=== PATIENT | male | born 1970 | race Caucasian/White ===

== ENCOUNTER 2017-07-05 13:42 | Emergency (ER) | payer MEDICAID, SELFPAY ==
[2017-07-05] VITALS (7 sets, daily range): BP systolic 118–136; BP diastolic 72–80; PULSE 70–83; RESP 14–18; TEMP 37.2; O2SAT 95–99; BMI 21.8
--- NOTE | 2017-07-05 14:20 | ED.VISSUMM ---
- ER Visit Summary Date of Service: 07/05/17 Chief Complaint: Manic episode History of Present Illness: The patient is a 47 M sent by the counseling center for evaluation. Patient was being seen by his counselor for what he states was a routine appointment. He states he was misdiagnosed as having a manic episode. He became agitated and the police were called. He was brought to the ED for further evaluation. He is easily distracted with pressured speech. He denies suicidal or homicidal ideation. He states that he has been taking his medications although report was that he was noncompliant. He states he has not been sleeping well. Physical Examination: Vitals are stable. Patient is afebrile. Alert no acute distress. HEENT exam is unremarkable. Neck is supple. Lungs are clear and equal bilaterally. Heart is regular rate and rhythm. Abdomen is soft nontender nondistended. Extremities are unremarkable. Skin is warm and dry. No focal neurologic deficit. Pressured speech, denies suicidal ideation Remainder of exam is unremarkable. Emergency Department Course and Treatment: CBC, chemistries unremarkable. Alcohol negative. Tox is pending. Discussed with the counseling center for evaluation. Disposition: Per counseling center Impression: Manic episode This note was generated with [employer] dictation software. It may contain incorrect words, spelling, and punctuation that were not noted in review of the chart prior to signing ED Disposition - Plan for ED Patient: Chief Complaint: Suicidal Referrals: Hay Garcia MD [Primary Care Provider] -
[2017-07-05 14:35] LABS: Basophil# 0.03 X10^3/uL; Basophil% 0.3 % (0-1); Eosinophil# 0.03 X10^3/uL; Eosinophils% 0.3 % (0-5); Hemoglobin 14.2 g/dl (13.0-16.5); Lymphocyte % 12.8 % (19-41); Mean Corp Hgb Conc 33.8 g/gl (32-36); Mean Corpuscular Volume 88.6 fL (80-94); Mean Platelet Vol. 9.6 fl (6.2-12.0); Monocyte# 0.74 X10^3/uL; Monocyte% 7.3 % (0-10); Neutrophil # 8.01 X10^3/uL (2.7-7.7); Neutrophil % 79.1 % (47-70); Platelet Count 273 K/mm3 (150-450); RBC Distribution Width CV 13.5 % (11.6-14.6); RBC Distribution Width SD 43.8 fl (35.1-43.9); Red Blood Count 4.74 M/mm3 (4.6-6.2); White Blood Count 10.1 K/mm3 (4.4-11.0)
[2017-07-05 14:36] LABS: POSITIVE COUNT NO; POSITIVE DIFFERENTIAL NO; POSITIVE MORPHOLOGY NO
[2017-07-05 14:55] LABS: Anion Gap 11 (5-15); BUN 10 mg/dL (7-18); BUN/Creat Ratio 13.2 RATIO (10-20); Calcium,Total 8.9 mg/dL (8.5-10.1); Chloride 103 mmol/L (98-107); Creatinine, Serum 0.76 mg/dL (0.70-1.30); EST Glomerular Filtration Rate 117 mL/min (>60); Est Glom Filt Rate - Afr Amer 142 mL/min (>60); Estimated Creatinine Clearance 115.32 ml/min; Glucose 142 mg/dL (74-106); Potassium 3.8 mmol/L (3.5-5.1); Sodium Level 139 mmol/L (136-145)
[2017-07-05 16:42] LABS: Amphetamine Urine VISTA NEGATIVE (<1000 ng/mL); Barbiturate Urine VISTA NEGATIVE (< 200 ng/mL); Benzodiazepine Urine VISTA NEGATIVE (< 200 ng/mL); Cocaine Urine VISTA NEGATIVE (< 300 ng/mL); Ecstacy Urine VISTA NEGATIVE (< 500 ng/mL); Methadone Urine VISTA NEGATIVE (< 300 ng/mL); PCP Urine VISTA NEGATIVE (< 25 ng/mL); THC Urine VISTA POSITIVE (< 50 ng/mL); Vista UDS pH Range 6
[2017-07-05] MEDS: Ziprasidone IM 20 MG/ML VIAL 10 MG IM (17:46)
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
[2017-07-05] MEDS: Acetaminophen 500 MG Tablet 1000 MG PO (21:10)
[2017-07-05] MEDS: Ziprasidone IM 20 MG/ML VIAL IM (21:11)
--- NOTE | 2017-07-05 23:12 | NURSING ---
CALLED [facility] NO AVAILABILITY TILL MORNING ([phone]) [facility] UNAVAILABLE FOR A FEW HOURS ([phone]) [facility] UNAVAILABLE FOR 2 HOURS IF NO OTHER CALLS COME IN ([phone])
[2017-07-06] VITALS (9 sets, daily range): BP systolic 118; BP diastolic 70; PULSE 70; RESP 14–20; TEMP 37.1; O2SAT 95
--- NOTE | 2017-07-06 00:11 | ED.RN ---
ATTEMPTED TO CALL REPORT TO [facility]. NO ANSWER.
--- NOTE | 2017-07-06 00:16 | ED.RN ---
NOTIFIED PT O TRANSFER, PT STATES THIS RN IS WORTHLESS, AND TO GET OUT OF HIS FUCKING ROOM
[2017-07-06] MEDS: LORazepam 2 MG/ML Syringe 1 MG IM (01:10)
[2017-07-06] MEDS: DiphenhydrAMINE 50 MG/ML Syringe IM (01:10)
[2017-07-06] MEDS: Haloperidol Lactate 5 MG/ML Vial IM (01:10)
--- NOTE | 2017-07-06 01:10 | ED.RN ---
PT REFUSED THIS RN TO GET VITAL SIGNS. RESPIRATIONS 18
--- NOTE | 2017-07-06 04:11 | NURSING ---
TOLD BY [facility] CALL BACK AT [phone] TO CHECK ON AVAILABILITY. WILL MAKE SURE TO TELL SUDHIR TRANSPORT IS STILL NEEDED AT SHIFT CHANGE
--- NOTE | 2017-07-06 08:07 | ED.RN ---
PT YELLING FOR HIS NURSE. PT DISRESPECTFUL CALL STAFF NAMES. PT REFUSED VITALS.
[2017-07-06] MEDS: Ziprasidone IM 20 MG/ML VIAL 10 MG IM (08:53)
--- NOTE | 2017-07-06 08:53 | ED.RN ---
PT IS CUSSING AND REFUSING TO LEAVE. PT WAS MEDICATED WITH [facility]. PT CONTINUES TO YELL AND BE UNCOOPERATIVE. TRANSPORTING [facility] IS STANDING BY.
== END 2017-07-06 09:08 ==
PROVIDERS: Emergency Provider Emergency Medicine; Family Provider Family Medicine; PCP Family Medicine
DX: F30.9 Manic episode, unspecified (principal); Z91.14 Patient's other noncompliance with medication regimen; Z87.820 Personal history of traumatic brain injury; Z72.0 Tobacco use
CPT/HCPCS: 80048; 80307; 80320; 85025; 96372; 99284; G0480; J3486

== ENCOUNTER → 2018-03-14 15:18 | Outpatient (CLI) | payer MEDICAID, SELFPAY ==
[2017-07-05 13:43] VITALS: BMI 21.8
[2018-03-14 16:38] LABS: Amphetamine Urine VISTA NEGATIVE (<1000 ng/mL); Barbiturate Urine VISTA NEGATIVE (< 200 ng/mL); Benzodiazepine Urine VISTA POSITIVE (< 200 ng/mL); Cocaine Urine VISTA NEGATIVE (< 300 ng/mL); Ecstacy Urine VISTA NEGATIVE (< 500 ng/mL); Methadone Urine VISTA NEGATIVE (< 300 ng/mL); PCP Urine VISTA NEGATIVE (< 25 ng/mL); THC Urine VISTA POSITIVE (< 50 ng/mL); Vista UDS pH Range 5
[2018-03-14 16:57] LABS: Erythrocyte Sedimentation Rate 10 mm/hr (0-15)
[2018-03-14 17:01] LABS: Vitamin B12 720 pg/mL (211-911)
[2018-03-14 17:07] LABS: ALB/GLOB Ratio 1.1 RATIO (0.9-2.4); AST(SGOT) 8 U/L (15-37); Alanine Aminotransfer ALT/SGPT 19 U/L (16-61); Albumin, Serum 3.9 g/dL (3.2-5.0); Alkaline Phosphatase 62 U/L (45-117); Anion Gap 8 (5-15); BUN 6 mg/dL (7-18); BUN/Creat Ratio 9.1 RATIO (10-20); Calcium,Total 9.2 mg/dL (8.5-10.1); Chloride 107 mmol/L (98-107); Creatinine, Serum 0.66 mg/dL (0.70-1.30); EST Glomerular Filtration Rate 137 mL/min (>60); Est Glom Filt Rate - Afr Amer 166 mL/min (>60); Globulin 3.4 g/dL (2.2-4.2); Glucose 98 mg/dL (74-106); Potassium 3.6 mmol/L (3.5-5.1); Protein, Total 7.3 g/dL (6.4-8.2); Sodium Level 140 mmol/L (136-145); Thyroid Stim Hormone (TSH) 1.31 uIU/mL (0.358-3.74)
== END ==
PROVIDERS: Family Provider Family Medicine; PCP Family Medicine; Referring Provider Psychiatry & Neurology Neurology; Visit Provider Psychiatry & Neurology Neurology
DX: S06.9X0A Unspecified intracranial injury without loss of consciousness, initial encounter (principal); G93.40 Encephalopathy, unspecified; X58.XXXA Exposure to other specified factors, initial encounter; Y93.9 Activity, unspecified; Y92.9 Unspecified place or not applicable; Y99.9 Unspecified external cause status; F31.9 Bipolar disorder, unspecified; Z79.899 Other long term (current) drug therapy
CPT/HCPCS: 36415; 80053; 80307; 82175; 82570; 82607; 83655; 83825; 84443; 85652

== ENCOUNTER 2025-01-17 16:56 | Emergency (ER) | payer MEDICAID, SELFPAY ==
[2025-01-17 16:57] VITALS: BP 137/83; PULSE 89; RESP 18; TEMP 37.1; O2SAT 96; BMI 23.2
--- NOTE | 2025-01-17 17:41 | US_ITS ---
PROCEDURE: US TESTICULAR WITH ARTERIAL FLOW 01/17/2025 REASON FOR EXAM: TESTICLE SWELLING AND PAIN TECHNIQUE: Procedure Code: USTES Modality: US Procedure: TESTICULAR WITH ARTERIAL FLOW COMPARISON: None. FINDINGS: The testes and epididymi appear normal in size with homogeneous parenchymal echotexture. No mass lesion. Right testicle measures 3.8 x 2.4 x 1.8 cm. Left testicle measures 3.1 x 2.2 x 1.5 cm. Small subcentimeter left epididymal head cysts noted. Normal symmetric blood flow is demonstrated bilaterally on color Doppler. No evidence for torsion or epididymo-orchitis. No significant hydrocele or varicocele is seen on either side. US/Testicular with Arterial Flow IMPRESSION: Unremarkable scrotal ultrasound. No evidence for torsion or infection. Reading Location: [id number]
[2025-01-17 18:19] LABS: Mucous, Urine 0 SEEN /hpf (<or=2+)
[2025-01-17 18:19] LABS: Hematocrit 47.9 % (40-54); Hemoglobin 16.5 g/dL (13.0-16.5); Immature Granulocytes Count 0.020 X10^3/uL (0.0-0.0); Mean Corp Hgb Conc 34.4 g/dL (32-36); Mean Corpuscular Volume 89.0 fL (80-94); Mean Platelet Vol. 10.3 fl (6.2-12.0); NRBC Flagged by Analyzer 0 % (0-5); Platelet Count 247 K/mm3 (150-450); RBC Distribution Width CV 13.3 % (11.6-14.6); RBC Distribution Width SD 43.4 fl (35.1-43.9); Red Blood Count 5.38 M/mm3 (4.6-6.2); White Blood Count 8.5 K/mm3 (4.4-11.0)
--- OUTSIDE RECORDS SUMMARY | 2025-01-17 18:27 | XMS RPT_ITS | CCD ---
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 help improve these levels and reduce your reflux symptoms. We discussed your headaches: - Since you were unable to complete the MRI, I recommend a CT scan of your head, which is less enclosed and quieter than an MRI. This will help us evaluate your headaches further. The CT scan can be done at [place]. - If your headaches persist, I may refer you to a specialist for further evaluation. We discussed your anxiety: - Anxiety may be contributing to your symptoms, including reflux and headaches. Please continue working with your psychiatrist to address this. If your anxiety worsens, let me know. We discussed your elevated cholesterol: - Continue taking atorvastatin as prescribed to manage your cholesterol. - Fasting labs are scheduled for the end of this month to recheck your cholesterol levels and monitor your blood counts. Please fast for 12 hours before this test. We discussed your heart health: - An echocardiogram (ultrasound of the heart) is needed to evaluate your heart. I will ask the director of front office to help schedule this test at [place]. Follow-up plan: - Complete the fasting labs, CT scan, and echocardiogram as discussed. - Continue working with your psychiatrist for anxiety management. - Follow up with me after your December 13 appointment or sooner if your symptoms worsen. - I will see you again in approximately 12 weeks to review your progress and test results. Please let me know if you have any questions or concerns about your care plan. Luis Mcfadden MD 10/27/2024 12:28 PM Signed The patient is a 54-year-old male with GERD and hyperlipidemia, presenting for follow-up on reflux, lipid management, and evaluation of persistent headaches. HPI GERD: - Persistent reflux symptoms. - Recent EGD by Dr. Markham revealed a hiatal hernia and erythematous mucosa in the antrum of the stomach. - Pathology report showed reactive squamous mucosa and gastrocardiac type mucosa, negative for intestinal metaplasia. - Currently taking Protonix. - Fadi reports significant anxiety related to reflux symptoms. Polycythemia: - Previous hemoglobin level of 19 g/dL. - Recent labs showed elevated carboxyhemoglobin and mildly elevated WBC count. - Fadi is a smoker, currently smoking 5-6 cigarettes per day, reduced from 10-15 cigarettes per day. Anxiety: - History of anxiety, currently under psychiatric care. - Next psychiatry appointment scheduled for December 13. - Fadi reports increased anxiety related to reflux symptoms and headaches. Headaches: - Persistent and severe headaches. - Previous facial bone X-ray was negative. - MRI was ordered but canceled by patient. refuses to do one. MEDICATIONS: Current Outpatient Medications Medication Sig atorvastatin (LIPITOR) 20 mg tablet Take 1 tablet by mouth once daily. Cholecalciferol, Vitamin D3, 125 mcg (5,000 unit) cap Take 1 capsule by mouth once daily. pantoprazole DR (PROTONIX) 40 mg tablet Take 1 tablet by mouth once daily. doxepin capsule 50 mg Take 50 mg by mouth daily at bedtime. traZODone (DESYREL) 100 mg tablet Take 100 mg by mouth daily at bedtime. VENLAFAXINE ER 150 MG TABLET,EXTENDED RELEASE 24 HR Take 150 mg by mouth once daily. ALPRAZolam (XANAX) 0.5 mg tablet Take 0.5 mg by mouth three times daily. famotidine (PEPCID) 20 mg tablet Take 1 tablet by mouth daily at bedtime. iv contrast (will be provided with radiology test) CT Brain WO/W - No IV access, insert saline lock prior to the sedation, infusion, injection for imaging exam. Discontinue saline lock post exam. If Pt. has a central line or IVAD, may access for administration according to line specific nursing protocol. Once exam is complete flush line and de-access according to line specific nursing protocol in the CT contrast administration guidelines (more content not included)... Normal [facility] ANES POSTPROC EVALon 025 ANES POSTPROC EVAL HNO ID: [id number] Author: FARIHA ESPAÑA MD Service: Anesthesiology Author Type: Anesthesiologist Type: Anesthesia Postprocedure Evaluation Filed: 10/17/2024 12:42 Note Text: POST ANESTHESIA EVALUATION NOTE : 1970 Procedure Summary Date: 10/17/24 Room / Location: [facility] Endoscopy Anesthesia Start: 1156 Anesthesia Stop: 1211 Procedure: EGD DIAGNOSTIC Diagnosis: Gastroesophageal reflux disease, unspecified whether esophagitis present (Heartburn) Scheduled Providers: Chapis Markham MD; Reynaldo Hayes APRN.SHAPING MACHINE OPERATOR; Fariha España MD Responsible Provider: Fariha Esapña MD Anesthesia Type: MAC ASA Status: 3 Anesthesia Type: MAC Last Vitals Vitals Value Taken Time BP 145/88 10/17/24 12:40 Temp 37 10/17/24 12:42 Pulse 72 10/17/24 12:40 Resp 18 10/17/24 12:40 SpO2 99 % 10/17/24 12:40 Post Anesthesia Patient Status Patient Evaluation: bedside. Anticipated Disposition: phase 2 then home. Neurological Status: aware and responsive. Airway Control: returned to baseline unsupported. Cardiovascular Status: stable. Pain Management: clinically adequate Postoperative Hydration: acceptable. Intraoperative Events: no significant anesthesia events Recommendation: continue current plan of care. Anesthesia Observations No Documentation SIGNATURE: Fariha España MD PATIENT NAME: Fadi Alexandre DATE: October 17, 2024 TIME: 12:42 PM CSN: [id number] Normal [facility] ANES PRE-OPon 10-17-2024 ANES PRE-OP HNO ID: [id number] Author: FARIHA ESPAÑA MD Service: Anesthesiology Author Type: Anesthesiologist Type: Anesthesia Preprocedure Evaluation Filed: 10/17/2024 11:20 Note Text: ANESTHESIOLOGY DAY OF SURGERY NOTE : 1970 Procedure Information Date/Time: 10/17/24 1300 Scheduled providers: Chapis Markham MD; Reynaldo Hayes APRN.SHAPING MACHINE OPERATOR; Fariha España MD Procedure: EGD DIAGNOSTIC Location: [facility] Endoscopy Estimated body mass index is 25.25 kg/m? as calculated from the following: Height as of this encounter: 175.3 cm (5' 9). Weight as of this encounter: 77.6 kg (171 lb). Most recent hematocrit and potassium results: Hematocrit 51.8 10/02/2024 Hematocrit (POCT) 38.2 09/10/2019 Potassium 4.1 05/21/2024 Potassium (POCT) 3.5 09/10/2019 Relevant Problems GI (+) GERD (gastroesophageal reflux disease) I - PHYSICAL EVALUATION AIRWAY Patient intubated: No. Tracheostomy tube not present Mallampati: II. TM distance: >3 FB. Neck ROM: full ROM without neurological symptoms. Mouth opening: >3 FB. Short neck: no. Thick neck: no Jolly present: no Microretrognathia/Micronag thia/Recessed Chin: No DENTAL Additional comments: Many Upper and Lower teeth missing and loose with overall poor dentition.. Additional exam findings: yes. CARDIOVASCULAR Rhythm: regular Rate: normal PULMONARY Breath sounds clear to auscultation. Additional comments: Pt has an old healed Tracheostomy Scar. No hoarseness of voice/stridor.. II - ANESTHESIA PLAN ASA Score: 3 Anesthetic Plan: MAC The patient is not a current smoker. Beta Valerie Administration of chronic beta valerie medication not planned. Monitoring Plan Monitoring plan: standard ASA. Post Procedure Analgesic Plan Postoperative analgesic plan: other. Informed Consent Anesthetic risks, benefits, alternatives, personnel and consent discussed: yes. Patient / Responsible Green Party agrees to proceed: yes Patient / Surrogate agrees to blood products: blood products not planned DNR status not reviewed with patient and/or family prior to surgery. Significant changes in the patient condition since the History and Physical, not otherwise documented in primary service progress note: no. Potential Anesthesia issues that may suggest increased risk of complications or contraindication to planned procedure: none. Vitals Value Taken Time BP 133/89 10/17/24 11:09 Pulse 88 10/17/24 11:09 Resp 17 10/17/24 11:09 Temp 36.5 ?C (97.7 ?F) 10/17/24 11:09 SpO2 93 % 10/17/24 11:09 Outpatient Medications as of 10/17/2024 Medication Sig atorvastatin (LIPITOR) 20 mg tablet Take 1 tablet by mouth once daily. Cholecalciferol, Vitamin D3, 125 mcg (5,000 unit) cap Take 1 capsule by mouth once daily. pantoprazole DR (PROTONIX) 40 mg tablet Take 1 tablet by mouth once daily. doxepin capsule 50 mg Take 50 mg by mouth daily at bedtime. traZODone (DESYREL) 100 mg tablet Take 100 mg by mouth daily at bedtime. VENLAFAXINE ER 150 MG TABLET,EXTENDED RELEASE 24 HR Take 150 mg by mouth once daily. ALPRAZolam (XANAX) 0.5 mg tablet Take 0.5 mg by mouth three times daily. Facility-Administered Medications as of 10/17/2024 Medication Dose Route Frequency lidocaine (PF) 10 mg/mL (1 %) 1-2 mg injection (XYLOCAINE) 0.1-0.2 mL INTRADERMAL PRN lactated ringers iv infusion 30 mL/hr INTRAVENOUS CONTINUOUS I have interviewed and examined the patient. I have reviewed the medical record and/or the pre-anesthesia evaluation, pertinent labs, and test results. This contains updated information obtained within 48 hours of Surgery/Procedure. SIGNATURE: Fariha España MD PATIENT NAME: Fadi Alexandre DATE: October 17, 2024 TIME: 11:13 AM CSN: [id number] Normal [facility] EGD Study observation Kath craig 10-17-2024 [facility] Gastrointestinal Endoscopy Patient Name: Fadi Alexandre Procedure Date: 10/17/2024 11:46 AM Date of : 1970 Admit Type: Outpatient Age: 54 Room: [facility] Gender: Male Note Status: Finalized Attending MD: Chapis Markham MD, [id number] Procedure: Upper GI endoscopy Indications: Heartburn Providers: Chapis Markham MD Patient Profile: Refer to note in patient chart for documentation of history and physical. Referring Physician: Rema Simon (Referring MD) Medicines: See the Anesthesia note for documentation of the administered medications Complications: No immediate complications. Requesting Provider: Procedure: Pre-Anesthesia Assessment: - Monitored anesthesia care under the supervision of a SHAPING MACHINE OPERATOR was determined to be medically necessary for this procedure based on review of the patient's medical history, medications, and prior anesthesia history. After obtaining informed consent, the endoscope was passed under direct vision. Throughout the procedure, the patient's blood pressure, pulse, and oxygen saturations were monitored continuously. The Endoscope was introduced through the mouth, and advanced to the second part of duodenum. The upper GI endoscopy was accomplished without difficulty. The patient tolerated the procedure well. Moderate Sedation: MAC anesthesia was administered by the anesthesia team. Total Procedure Duration: 0 hours 5 minutes 57 seconds Findings: The duodenal bulb, first portion of the duodenum and second portion of the duodenum were normal. Radially Striped mildly erythematous mucosa without bleeding was found in the gastric antrum. Biopsies were taken with a cold forceps for Helicobacter pylori testing and at erythematous site. Verification of patient identification for the specimen was done by the nurse. Estimated blood loss was minimal. A small hiatal hernia was present. Biopsies were taken with a cold forceps for histology at GE junction. Verification of patient identification for the specimen was done by the nurse. Estimated blood loss was minimal. Impression: - Normal duodenal bulb, first portion of the duodenum and second portion of the duodenum. - Erythematous mucosa in the antrum. Biopsied. - Small hiatal hernia. Biopsied at GE junction. Recommendation: - Discharge patient to home (ambulatory). - Resume previous diet. - Continue present medications. - Await pathology results. - - Follow up with Katharine Simon NP, , may be via televisit for discussion of pathology results and determination of timing of future endoscopies Procedure Code(s): --- Professional --- 25146, Esophagogastroduodenoscopy , flexible, transoral; with biopsy, single or multiple Diagnosis Code(s): --- Professional --- R12, Heartburn K44.9, Diaphragmatic hernia without obstruction or gangrene K31.89, Other diseases of stomach and duodenum CPT copyright 2020 [employer]. All rights reserved. The codes documented in this report are preliminary and upon timber mill worker review may be revised to meet current compliance requirements. Attending Participation: I personally performed the entire procedure. Scope In: 12:01:06 PM Scope Out: 12:07:03 PM MD Chapis Weber MD 10/17/2024 12:11:40 PM This report has been signed electronically by Chapis Markham MD Number of Addenda: 0 Note Initiated On: 10/17/2024 11:46 AM Estimated Blood Loss: Estimated blood loss was minimal. PROVATION [facility] Radiology Study observation (narrative) [facility] HISTORY PHYSICALon HISTORY PHYSICAL HNO ID: [id number] Author: CHAPIS MARKHAM MD Service: General Surgery Author Type: Physician Type: H&P Filed: 10/17/2024 11:47 Note Text: HISTORY AND PHYSICAL Fadi Alexandre : 1970 REFERRING PHYSICIAN: Luis Cervantes [facility] [id number] CHIEF COMPLAINT: Patient presents with: Consult HPI: Fadi is a 54 year old male referred for endoscopy. Fadi notes heartburn. -admits to a large amount of coffee consumption -PCP started on protonix and it is not helping Fadi denies dysphagia. Fadi denies a history of ulcers/ peptic ulcer disease. Fadi's medical hx is significant for TBI(2011)- had tracheostomy AND was in hospital for 4 mos, HLD, 1ppd smoker w/ c/o SOB. Dr Mcfadden recently ordered PFTs AND an ECHO. will wait for these results prior to scheduling Fadi expressed frustration stating I thought I was here for my breathing. He mentioned multiple times he does not want to do the scopes. Fadi has not undergone prior endoscopy. He refused scheduling for colonoscopy and only scheduled for EGD CURRENT MEDICATIONS Current Outpatient Medications Medication Sig Cholecalciferol, Vitamin D3, 125 mcg (5,000 unit) cap Take 1 capsule by mouth once daily. pantoprazole DR (PROTONIX) 40 mg tablet Take 1 tablet by mouth once daily. doxepin capsule 50 mg Take 50 mg by mouth daily at bedtime. traZODone (DESYREL) 100 mg tablet Take 100 mg by mouth daily at bedtime. VENLAFAXINE ER 150 MG TABLET,EXTENDED RELEASE 24 HR Take 150 mg by mouth once daily. ALPRAZolam (XANAX) 0.5 mg tablet Take 0.5 mg by mouth three times daily. No current facility-administered medications for this visit. ALLERGIES: Zyprexa [Olanzapine] PAST MEDICAL HISTORY PAST MEDICAL HISTORY Diagnosis Date Chronic pain dismissed from pain management, due to inconsistant drug screens Fall Intracranial bleed (HCC) after fall Marijuana use positive drug screen by Dr. Martinez Organic mood disorder since fall, seeing psychiatry Trauma multiple fractures PAST SURGICAL HISTORY PAST SURGICAL HISTORY Procedure Laterality Date FOOT SURGERY HX Left 2016 removal of wart PAST SURGICAL HISTORY OF 2011 trach, peg, multi-trauma/fall, hospitalized [place]-100 days FAMILY HISTORY FAMILY HISTORY Problem Relation Age of Onset Osteoporosis Mother other (CHF) Mother Hypertension Mother Arthritis Mother other (Thyroid disease) Mother Diabetes Father Heart Father No Known Problems Sister other (suicide) Brother Hypertension Brother other (Heart condition) Maternal Grandmother other (Heart condition) Maternal Grandfather No Known Problems Paternal Grandmother No Known Problems Paternal Grandfather SOCIAL HISTORY Social History Tobacco Use Smoking status: Every Day Current packs/day: 0.75 Average packs/day: 0.8 packs/day for 34.7 years (26.0 ttl pk-yrs) Types: Cigarettes Start date: 09/10/1989 Smokeless tobacco: Former Tobacco comments: CHEW TOBACCO 1 X EVERY 2 MONTHS 05/08/24: quit Vaping Use Vaping status: Never Used Substance Use Topics Alcohol use: Not Currently Drug use: Yes Frequency: 7.0 times per week Types: Marijuana Comment: [address] last used no h/o rehab or detox REVIEW OF SYMPTOMS: Denies chest pain Denies shortness of breath PHYSICAL EXAMINATION: General: The patient is 54 year old, male well nourished, well hydrated in no acute distress. The patient is oriented to time, place, and person. VITALS: Blood pressure 112/78, pulse 96, temperature 36.7 ?C (98 ?F), temperature source Temporal, resp. rate 14, height 176.5 cm (5' 9.5), weight 76.2 kg (168 lb), SpO2 96%. Body mass index is 24.45 kg/m?. HEENT: Normal cephalic, ataumatic, pupils are equally round, sclera are anicteric, mucous membranes are moist, oropharynx is clear. Neck has no masses, asymmetry or lymphadenopathy. Respiratory: Clear to auscultation and percussion. Normal respiratory excursion and pattern. Cardiac: Examination is regular rate and rhythm. Normal S1/S2 Abdominal exam: Soft, nontender, with no palpable masses. No hepatosplenomegaly. No palpable hernias. Extremities: + clubbing, cyanosis or edema. No adenopathy. Assessment IMPRESSION: GERD Discussion/Plan/Recommenda tions: I have discussed the above with the patient. I have offered EGD, possible biopsies I have explained the procedure to the patient. I have counseled the patient as to the risks of the procedure, including but not limited to: infection, bleeding, injury to any intrabdominal organs such as liver/spleen, perforation of the GI tract, inability to complete the procedure, complications of anesthesia, etc. - the patient understands. Patient is waiting in the preoperative area and very frustrated with being in the hospital The patient wishes to proceed. I have answered all questions to the patient?s s (more content not included)... [facility] Pathology biopsy report Vignesh (Tiss)on 10-17-2024 AP DISCLAIMER [facility] Comment on above: Order Comment: Specgabriel velasquez Type: TISSUE SPECIMEN Ordering Facility: [facility] Address: [address] [place] [address] Result Comment: Alden Kincaid Test (LDT) Disclaimer: Performance characteristics of immunohistochemical, immunofluorescent, and chromogenic in-situ hybridization tests have been determined by the performing laboratory within the [facility] Department of Pathology and Laboratory Medicine ([facility]3], [facility], [facility], [facility], [facility], [facility], or [facility]) in a manner consistent with CLIA requirements. One or more of these tests may not have been cleared or approved by the FDA. The [facility] Department of Pathology and Laboratory Medicine is regulated under CLIA as qualified to perform high-complexity testing. These tests are used for clinical purposes. These should not be regarded as investigational or for research. Positive and negative controls stain appropriately. Performed By: #### 6 6121-5 #### [facility] CLIA [id number] [address] [place] [address] [place] CASE REPORT Normal [facility] Comment on above: Order Comment: Edy velasquez Type: TISSUE SPECIMEN Ordering Facility: [facility] Address: [address] [place] [address] Result Comment: [facility] Pathology Report Case: [id number] Authorizing Provider: Chapis Markham MD Collected: 10/17/2024 12:02 PM Ordering Location: [facility] Endoscopy Received: 10/17/2024 02:11 PM Pathologist: Daniella Salcido MD, PhD Specimens: A) - Stomach, Antrum, Biopsy B) - Stomach, Biopsy, body of stomach C) - Esophagogastric Junction, Biopsy Performed By: #### 6 6121-5 #### [facility] CLIA [id number] [address] [place] [address] [place] FINAL DIAGNOSIS Normal [facility] Comment on above: Order Comment: Edy velasquez Type: TISSUE SPECIMEN Ordering Facility: [facility] Address: [address] [place] [address] Result Comment: Kerry holloway, antrum, biopsy: - Gastric antral mucosa with no significant diagnostic abnormality. B. Stomach, body, biopsy: - Detached fragments of foveolar epithelium, no significant diagnostic abnormality. C. Esophagogastric junction, biopsy: - Reactive squamous mucosa and gastric cardia-type mucosa, negative for intestinal metaplasia. at 1153 EDT Performed By: #### 6 6121-5 #### [facility] CLIA [id number] [address] [place] [address] OF [facility] FINAL PERFORMING LAB Normal [facility] Comment on above: Order Comment: Speci men Type: TISSUE SPECIMEN Ordering Facility: [facility] Address: [address] [place] [address] Result Comment: Diag nostic interpretation performed at: [facility], [address] [place] [address] CLIA# [id number] Stone Spreader Operator: Antonino Cavazos MD Performed By: #### 6 6121-5 #### [facility] CLIA [id number] [address] [place] [address] GROSS DESCRIPTION Normal [facility] Comment on above: Order Comment: Speci men Type: TISSUE SPECIMEN Ordering Facility: [facility] Address: [address] [place] [address] Result Comment: A. S tomach, Antrum, Biopsy Received in formalin is one piece of jackman, soft tissue measuring 0.3 x 0.2 x 0.1 cm. Totally submitted in one cassette. B. Stomach, Biopsy Received in formalin is one piece of jackman, soft tissue measuring 0.2 x 0.1 x 0.1 cm. Totally submitted in one cassette. C. Esophagogastric Junction, Biopsy Received in formalin are two pieces of jackman-white, soft tissue aggregating to 0.6 x 0.3 x 0.2 cm. Totally submitted in one cassette. Gross examination performed at [facility], [address] [place] [address]. [place] [address] JT 10/17/2024 5:54 PM Performed By: #### 6 6121-5 #### [facility] CLIA [id number] [place] [place] [address] [place] [facility] Upper GI endoscopyon 10-17-2 025 Upper GI endoscopy [facility] Gastrointestinal Endoscopy Patient Name: Fadi Alexandre Procedure Date: 10/17/2024 11:46 AM Date of : 1970 Admit Type: Outpatient Age: 54 Room: [facility] Gender: Male Note Status: Finalized Attending MD: Chapis Markham MD, [id number] Procedure: Upper GI endoscopy Indications: Heartburn Providers: Chapis Markham MD Patient Profile: Refer to note in patient chart for documentation of history and physical. Referring Physician: Rema Simon (Referring MD) Medicines: See the Anesthesia note for documentation of the administered medications Complications: No immediate complications. Requesting Provider: Procedure: Pre-Anesthesia Assessment: - Monitored anesthesia care under the supervision of a SHAPING MACHINE OPERATOR was determined to be medically necessary for this procedure based on review of the patient's medical history, medications, and prior anesthesia history. After obtaining informed consent, the endoscope was passed under direct vision. Throughout the procedure, the patient's blood pressure, pulse, and oxygen saturations were monitored continuously. The Endoscope was introduced through the mouth, and advanced to the second part of duodenum. The upper GI endoscopy was accomplished without difficulty. The patient tolerated the procedure well. Moderate Sedation: MAC anesthesia was administered by the anesthesia team. Total Procedure Duration: 0 hours 5 minutes 57 seconds Findings: The duodenal bulb, first portion of the duodenum and second portion of the duodenum were normal. Radially Striped mildly erythematous mucosa without bleeding was found in the gastric antrum. Biopsies were taken with a cold forceps for Helicobacter pylori testing and at erythematous site. Verification of patient identification for the specimen was done by the nurse. Estimated blood loss was minimal. A small hiatal hernia was present. Biopsies were taken with a cold forceps for histology at GE junction. Verification of patient identification for the specimen was done by the nurse. Estimated blood loss was minimal. Impression: - Normal duodenal bulb, first portion of the duodenum and second portion of the duodenum. - Erythematous mucosa in the antrum. Biopsied. - Small hiatal hernia. Biopsied at GE junction. Recommendation: - Discharge patient to home (ambulatory). - Resume previous diet. - Continue present medications. - Await pathology results. - - Follow up with Katharine Simon NP, , may be via televisit for discussion of pathology results and determination of timing of future endoscopies Procedure Code(s): --- Professional --- 74293, Esophagogastroduodenoscopy , flexible, transoral; with biopsy, single or multiple Diagnosis Code(s): --- Professional --- R12, Heartburn K44.9, Diaphragmatic hernia without obstruction or gangrene K31.89, Other diseases of stomach and duodenum CPT copyright 2020 [employer]. All rights reserved. The codes documented in this report are preliminary and upon timber mill worker review may be revised to meet current compliance requirements. Attending Participation: I personally performed the entire procedure. Scope In: 12:01:06 PM Scope Out: 12:07:03 PM MD Chapis Weber MD 10/17/2024 12:11:40 PM This report has been signed electronically by Chapis Markham MD Number of Addenda: 0 Note Initiated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 [facility] center. 2. Gastroesophageal reflux disease without esophagitis - ICD9: 530.81, ICD10: K21.9 - work on reducing caffeine. See surgery with persistent gerd. - CONSULT TO GENERAL SURGERY 3. Screening for colon cancer - ICD9: V76.51, ICD10: Z12.11 - CONSULT TO GENERAL SURGERY 4. Mixed hyperlipidemia - ICD9: 272.2, ICD10: E78.2 - Control undetermined, due for labs - Counseled on healthy diet and regular exercise - COMPLETE BLOOD COUNT AND DIFFERENTIAL - COMPREHENSIVE METABOLIC PANEL - LIPID PANEL, NONFASTING 5. Screening for prostate cancer - ICD9: V76.44, ICD10: Z12.5 - PSA/PROSTATE SPECI (more content not included)... Normal [facility] metabolic 2000 panelon 05-21-2024 Albumin [Mass/Vol] 4.5 g/dL Normal 3.9-4.9 [facility] Comment on above: Order Comment: Speci men Type: BLOOD SPECIMEN Ordering Facility: [facility] Address: [facility] [place] [address] Performed By: #### 5 7021-8 #### [facility] CLIA [id number] [address] [place] [address] [place] ALP [Catalytic activity/Vol] 54 U/L Normal 38-113 [facility] Comment on above: Order Comment: Speci men Type: BLOOD SPECIMEN Ordering Facility: [facility] Address: [address] [place] [address] Performed By: #### 5 7021-8 #### [facility] CLIA [id number] [address] [place] [address] [place] ALT [Catalytic activity/Vol] 15 U/L Normal 10-54 [facility] Comment on above: Order Comment: Speci men Type: BLOOD SPECIMEN Ordering Facility: [facility] Address: [address] [place] [address] Performed By: #### 5 7021-8 #### [facility] CLIA [id number] [address] [place] [address] [place] Anion gap [Moles/Vol] 14 mmol/L Normal 8-15 [facility] Comment on above: Order Comment: Speci men Type: BLOOD SPECIMEN Ordering Facility: [facility] Address: [address] [place] [address] Performed By: #### 5 7021-8 #### [facility] CLIA [id number] [address] [place] [address] [place] AST [Catalytic activity/Vol] 18 U/L Normal 14-40 [facility] Comment on above: Order Comment: Speci men Type: BLOOD SPECIMEN Ordering Facility: [facility] Address: [address] [place] [address] Performed By: #### 5 7021-8 #### [facility] CLIA [id number] [address] [place] [address] [place] Bilirubin [Mass/Vol] 0.3 mg/dL Normal 0.2-1.3 [facility] Comment on above: Order Comment: Speci men Type: BLOOD SPECIMEN Ordering Facility: [facility] Address: [address] [place] [address] Performed By: #### 5 7021-8 #### [facility] CLIA [id number] [address] [place] [address] [place] Calcium [Mass/Vol] 9.8 mg/dL Normal 8.5-10.2 [facility] Comment on above: Order Comment: Speci men Type: BLOOD SPECIMEN Ordering Facility: [facility] Address: [address] [place], [place] [address] Performed By: #### 5 7021-8 #### [facility] CLIA [id number] [address] [place] [address] [place] Chloride [Moles/Vol] 103 mmol/L Normal 98-107 [facility] Comment on above: Order Comment: Speci men Type: BLOOD SPECIMEN Ordering Facility: [facility] Address: [address] [place] [address] Performed By: #### 5 7021-8 #### [facility] CLIA [id number] [address] [place] [address] [place] CO2 [Moles/Vol] 22 mmol/L Normal 22-30 [facility] Comment on above: Order Comment: Speci men Type: BLOOD SPECIMEN Ordering Facility: [facility] Address: [address] [place] [address] Performed By: #### 5 7021-8 #### [facility] CLIA [id number] [address] [place] [address] [place] Creatinine [Mass/Vol] 0.76 mg/dL Normal 0.73-1.22 [facility] Comment on above: Order Comment: Edy velasquez Type: BLOOD SPECIMEN Ordering Facility: [facility] Address: [address] [place] [address] Performed By: #### 5 7021-8 #### [id number] [address] [place] [address] [place] Creatinine and Glomerular filtration rate.predicted panel (S/P/Bld) 107 mL/min/1.73m??? Normal >=60 [facility] Comment on above: Order Comment: Edy velasquez Type: BLOOD SPECIMEN Ordering Facility: [facility] Address: [address] [place] [address] Result Comment: Verito mated Glomerular Filtration Rate (eGFR) is calculated using the 2020 CKD-EPI creatinine equation. This equation utilizes serum creatinine, sex, and age as parameters. The creatinine assay has traceable calibration to isotope dilution-mass spectrometry. Refer to KDIGO guidelines for clinical interpretation. In patients with unstable renal function, e.g. those with acute kidney injury, the eGFR may not accurately reflect actual GFR. Performed By: #### 5 7021-8 #### [facility] [id number] [address] [place] [address] [place] Glucose [Mass/Vol] 91 mg/dL Normal 74-99 [facility] Comment on above: Order Comment: Edy velasquez Type: BLOOD SPECIMEN Ordering Facility: [facility] Address: [address] [place] [address] Result Comment: The [place] Diabetes Association (ADA) provides guidance for cutoff values for fasting glucose and random glucose. The ADA defines fasting as no caloric intake for at least 8 hours. Fasting plasma glucose results between 100 to 125 mg/dL indicate increased risk for diabetes (prediabetes). Fasting plasma glucose results greater than or equal to 126 mg/dL meet the criteria for diagnosis of diabetes. In the absence of unequivocal hyperglycemia, results should be confirmed by repeat testing. In a patient with classic symptoms of hyperglycemia or hyperglycemic crisis, random plasma glucose results greater than or equal to 200 mg/dL meet the criteria for diagnosis of diabetes. Reference: Standards of Medical Care in Diabetes 2016, [place] [employer] Association. Diabetes Care. 2016.39(Suppl 1). Performed By: #### 5 7021-8 #### [facility] CL[facility] [id number] [address] [place] [address] [place] Potassium [Moles/Vol] 4.1 mmol/L Normal 3.7-5.1 [facility] Comment on above: Order Comment: Speci men Type: BLOOD SPECIMEN Ordering Facility: [facility] Address: [address] [place] [place] [id number] Performed By: #### 5 7021-8 #### [facility] CLIA [id number] [address] [place] [address] [place] Protein [Mass/Vol] 7.5 g/dL Normal 6.3-8.0 [facility] Comment on above: Order Comment: Speci men Type: BLOOD SPECIMEN Ordering Facility: [facility] Address: [address] [place] [address] Performed By: #### 5 7021-8 #### [facility] [id number] [address] [place] [address] [place] Sodium [Moles/Vol] 139 mmol/L Normal 136-144 [facility] Comment on above: Order Comment: Speci men Type: BLOOD SPECIMEN Ordering Facility: [facility] Address: [facility] [place] [address] Performed By: #### 5 7021-8 #### [facility] CLIA [id number] [address] [place] [address] [place] Urea nitrogen [Mass/Vol] 7 mg/dL Low 9-24 [facility] Comment on above: Order Comment: Speci men Type: BLOOD SPECIMEN Ordering Facility: [facility] Address: [address] [place] [address] Performed By: #### 5 7021-8 #### [facility] CLIA [id number] [address] [place] [address] [place] LIPID PANEL, NONFASTINGon Cholesterol [Mass/Vol] 273 mg/dL High <200 [facility] Comment on above: Order Comment: Edy men Type: BLOOD SPECIMEN Ordering Facility: [facility] Address: [address] [place] [address] Result Comment: <200 mg/dL, Desirable 200-239 mg/dL, Borderline high >239 mg/dL, High Performed By: #### 5 7021-8 #### [facility] CLIA [id number] [address] [place] [address] [place] HDL CHOLESTEROL, NF 48 mg/dL Normal >39 [facility] Comment on above: Order Comment: Edy velasquez Type: BLOOD SPECIMEN Ordering Facility: [facility] Address: [address] [place] [address] Result Comment: 40-5 9 mg/dL, Acceptable >59 mg/dL, High: Negative risk factor for coronary heart disease <40 mg/dL, Low: Positive risk factor for coronary heart disease Performed By: #### 5 7021-8 #### [facility] CLIA [id number] [address] [place] [address] [place] LDL CHOLESTEROL, NF 205 mg/dL High <100 [facility] Comment on above: Order Comment: Speci men Type: BLOOD SPECIMEN Ordering Facility: [facility] Address: [address] [place] [address] Result Comment: <100 mg/dL, Optimal 100-129 mg/dL, Near optimal/above optimal 130-159 mg/dL, Borderline high 160-189 mg/dL, High >189 mg/dL, Very high Secondary prevention optimal LDL Cholesterol levels are recommended to be < 70 mg/dL Performed By: #### 5 7021-8 #### [facility] CLIA [id number] [address] [place] [address] [place] LDL/HDL RATIO, NF 4.27 mg/dL High <2.54 [facility] Comment on above: Order Comment: Edy velasquez Type: BLOOD SPECIMEN Ordering Facility: [facility] Address: [address] [place] [place] [id number] Result Comment: Franko barker: 1. National Cholesterol Education Program ATP III Guideline At-A-Glance Quick Desk Reference: National Heart, Lung, and Blood [place]. National Institutes of Health. 2001: NIH Publication No. 01-3305. 2. An International Atherosclerosis Society position paper: global recommendations for the management of dyslipidemia: executive summary, Atherosclerosis. 2014: 232(2):410-413. Performed By: #### 5 7021-8 #### [facility] CLIA [id number] [address] [place] [address] [place] NON HDL CHOL, NF 225 mg/dL High <130 [facility] Comment on above: Order Comment: Edy velasquez Type: BLOOD SPECIMEN Ordering Facility: [facility] Address: [address] [place] [address] Result Comment: <130 mg/dL, Optimal 130-159 mg/dL, Near optimal/above optimal 160-189 mg/dL, Borderline high 190-219 mg/dL, High >219 mg/dL, Very high Secondary prevention optimal non HDL Cholesterol levels are recommended to be <100 mg/dL Performed By: #### 5 7021-8 #### [facility] CLIA [id number] [address] [place] [address] [place] T CHOL/HDL RATIO NF 5.69 mg/dL High <5.10 [facility] Comment on above: Order Comment: Edy velasquez Type: BLOOD SPECIMEN Ordering Facility: [facility] Address: [address] [place] [address] Performed By: #### 5 7021-8 #### [facility] CLIA [id number] [address] [place] [address] [place] TRIGLYCERIDES, NF 100 mg/dL Normal <150 [facility] Comment on above: Order Comment: Edy men Type: BLOOD SPECIMEN Ordering Facility: [facility] Address: [address] [place] [address] Result Comment: <150 mg/dL, Normal 150-199 mg/dL, Borderline high 200-499 mg/dL, High >499 mg/dL, Very high Performed By: #### 5 7021-8 #### [facility] [id number] [address] [place] [address] [place] VLDL CHOLESTEROL, NF 20 mg/dL Normal <30 [facility] Comment on above: Order Comment: Speci men Type: BLOOD SPECIMEN Ordering Facility: [facility] Address: [address] [place], [place] [id number] Performed By: #### 5 7021-8 #### [facility] [id number] [address] [place] [address] [place] Magnesium SerPl-mCncon 05-21 Magnesium [Mass/Vol] 2.1 mg/dL Normal 1.7-2.3 [facility] Comment on above: Order Comment: Speci men Type: BLOOD SPECIMEN Ordering Facility: [facility] Address: [address] [place] [address] Performed By: #### 5 7021-8 #### [facility] [id number] [address] [place] [address] [place] PSA/PROSTATE SPECIFIC ANTIGE N SCREENINGon 05-21-2024 Prostate specific Ag [Mass/Vol] 0.61 ng/mL Normal <2.60 [facility] Comment on above: Order Comment: Speci men Type: BLOOD SPECIMEN Ordering Facility: [facility] Address: [address] [place] [address] Result Comment: Tota l PSA test methodology used is the Electrochemiluminescence Immunoassay by [employer]. Total PSA values by differing methodologies cannot be interchanged. Performed By: #### 5 7021-8 #### [facility] [id number] [address] [place] [address] [place] XR CHEST 2V FRONTAL/LATon XR CHEST 2V FRONTAL/LAT * * *Final Report* * * DATE OF EXAM: May 21 2024 11:52AM WOX [id number] - XR CHEST 2V FRONTAL/LAT / PROCEDURE REASON: multiple diagnoses * * * * Physician Interpretation * * * * EXAMINATION: CHEST RADIOGRAPH (2 VIEW FRONTAL and LATERAL) CLINICAL HISTORY: SOB (shortness of breath) Clubbing of fingers MQ: [id number]_6 EXAM DATE/TIME: 05/21/2024 11:52 AM COMPARISON: 05/18/2021 RESULT: Lines, tubes, and devices: None. Lungs and pleura: No consolidation. Mild biapical pleural parenchymal scarring with a few small bullae in the apices. No pleural effusion. No pneumothorax. Cardiomediastinal silhouette: Normal cardiomediastinal silhouette. Bones and soft tissues: Remote left clavicular and left scapular fracture deformity. Multiple remote sequential bilateral upper rib fractures are again noted. IMPRESSION: No acute radiographic abnormality. Gandy Dancer[facility] Transcribe Date/Time: May 23 2024 8:39P Dictated by : SARA JEAN-BAPTISTE MD This examination was interpreted and the report reviewed and electronically signed by: SARA JEAN-BAPTISTE MD on May 23 2024 8:40PM EST [id number] Normal [facility] 25-hydroxyvitamin D3 [Mass/V ol]on 12-02-2022 Interpretation and review of laboratory results Abnormal [facility] Therapy is based on measurement of Total 25-OHD with the following classification levels: Less than 20 ng/mL: Indicative of Vit D deficiency 20-30 ng/mL: Suggests Vit D insufficiency Optimal: Greater than or equal to 30 ng/mL Test performed by [employer] Immunoassay, measuring Total Vitamin D, not individual fractions. [facility] CBC (HEMOGRAM)on 12-02-2022 Erythrocyte distribution width (RBC) [Ratio] 13.0 % Normal 11.5-14.5 [facility] Comment on above: Performed By: #### L [id number] #### [employer]: LLUVIA ELIAS ([id number]) [facility] [address] [place] [address] ERYTHROCYTE MEAN CORPUSCULAR HEMOGLOBIN CONCENTRATION (G/DL) BY AUTOMATED 34.5 % Normal 32.0-36.0 [facility] Comment on above: Performed By: #### L [id number] #### [employer]: LLUVIA ELIAS ([id number]) [facility] ([facility]) [address] [place] [address] Hematocrit (Bld) [Volume fraction] 47.2 % Normal 40.0-52.0 [facility] Comment on above: Performed By: #### L AB294 #### [employer]: LLUVIA ELIAS ([id number]) [facility] ELKINS RITTMAN (SWRLAB) [address] [place] [address] Hemoglobin (Bld) [Mass/Vol] 16.3 g/dL Normal 13.0-18.0 [facility] Comment on above: Performed By: #### L [id number] #### [employer]: LLUVIA ELIAS ([id number]) [facility] ELKINS RITTMAN (SWRLAB) [address] [place] [address] MCH (RBC) [Entitic mass] 30.6 pg Normal 26.0-34.0 [facility] Comment on above: Performed By: #### L [id number] #### [employer]: LLUVIA ELIAS ([id number]) [facility] ELKINS RITTMAN (SWRLAB) [address] [place] [address] MCV (RBC) [Entitic vol] 88.7 fL Normal 80.0-98.0 [facility] Comment on above: Performed By: #### L [id number] #### [employer]: LLUVIA ELIAS ([id number]) [facility] ELKINS RITTMAN (SWRLAB) [address] [place] [address] Platelet mean volume (Bld) [Entitic vol] 9.4 fL Normal 7.4-12.4 [facility] Comment on above: Result Comment: MPV is a calculated measurement using platelet volume ratio Performed By: #### L [id number] #### [employer]: LLUVIA ELIAS ([id number]) [facility] ELKINS RITTMAN (SWRLAB) [address] [place] [address] [place] PLATELETS (10*3/UL) IN BLOOD AUTOMATED COUNT 236 10*3/uL Normal 140-440 [facility] Comment on above: Performed By: #### L [id number] #### [employer]: LLUVIA ELIAS ([id number]) [facility] ELKINS RITTMAN (SWRLAB) [address] [place] [address] RBC (Bld) [#/Vol] 5.32 10*6/uL Normal 4.40-5.90 [facility] Comment on above: Performed By: #### L [id number] #### [employer]: LLUVIA ELIAS ([id number]) [facility] ELKINS RITTMAN (SWRLAB) [address] [place] [address] WBC (Bld) [#/Vol] 10.7 10*3/uL Normal 3.6-10.7 [facility] Comment on above: Performed By: #### L [id number] #### [employer]: LLUVIA ELIAS ([id number]) [facility] MCKEONTMAN (SWRLAB) [address] [place] [address] CBC panel Auto (Bld)on 12-02 Erythrocyte distribution width (RBC) [Ratio] 13.0 % 11.5 - 14.5 % [facility] Hematocrit (Bld) [Volume fraction] 47.2 % 40.0 - 52.0 % [facility] Hemoglobin (Bld) [Mass/Vol] 16.3 g/dL 13.0 - 18.0 g/dL [facility] Interpretation and review of laboratory results Normal [facility] MCH (RBC) [Entitic mass] 30.6 pg 26.0 - 34.0 pg [facility] MCHC (RBC) [Mass/Vol] 34.5 % 32.0 - 36.0 % [facility] MCV (RBC) [Entitic vol] 88.7 fL 80.0 - 98.0 fL [facility] Platelet mean volume (Bld) [Entitic vol] 9.4 fL 7.4 - 12.4 fL [facility] Comment on above: MPV is a calculated measurement using platelet volume ratio Platelets (Bld) [#/Vol] 236 10*3/uL 140 - 440 10*3/uL [facility] RBC (Bld) [#/Vol] 5.32 10*6/uL 4.40 - 5.9 0 10*6/uL [facility] WBC (Bld) [#/Vol] 10.7 10*3/uL 3.6 - 10.7 10*3/uL [facility] COMPREHENSIVE METABOLIC PANE [place] 12-02-2022 Albumin [Mass/Vol] 4.1 g/dL Normal 3.5-5.0 [facility] Comment on above: Performed By: #### L AB129, LAB18, LAB17, LAB67 #### [employer]: LLUVIA ELIAS ([id number]) [facility]ITALMelissa SPENCERBRITTNI RITTMAN (SWRLAB) [address] [place] [address] ALP [Catalytic activity/Vol] 40 U/L Normal 38-126 [facility] Comment on above: Performed By: #### L AB129, LAB18, LAB17, LAB67 #### [employer]: LLUVIA ELIAS ([id number]) [facility]ITALMelissa LACEYBRITTNI RITTMAN (SWRLAB) [address] [place] [address] ALT [Catalytic activity/Vol] 18 U/L Normal 0-49 [facility] Comment on above: Performed By: #### L AB129, LAB18, LAB17, LAB67 #### [employer]: LLUVIA ELIAS ([id number]) [facility]ITALMel[facility] ELKINS RITTMAN (SWRLAB) [address] [place] [address] Anion gap [Moles/Vol] 9 mmol/L Normal 3-13 [facility] Comment on above: Performed By: #### L AB129, LAB18, LAB17, LAB67 #### [employer]: LLUVIA ELIAS ([id number]) [facility]ITALMel[facility] ELKINS RITTMAN (SWRLAB) [address] [place] [address] [place] AST [Catalytic activity/Vol] 17 U/L Normal 15-46 [facility] Comment on above: Performed By: #### L AB129, LAB18, LAB17, LAB67 #### [employer]: LLUVIA ELIAS ([id number]) [facility]ITALMel[facility] ELKINS RITTMAN (SWRLAB) [address] [place] [address] Bilirubin [Mass/Vol] 0.6 mg/dL Normal 0.2-1.3 [facility] Comment on above: Performed By: #### L AB129, LAB18, LAB17, LAB67 #### [employer]: LLUVIA ELIAS ([id number]) [facility]ITALMel[facility] ELKINS RITTMAN (SWRLAB) [address] [place] [address] Calcium [Mass/Vol] 9.5 mg/dL Normal 8.4-10.4 [facility] Comment on above: Performed By: #### L AB129, LAB18, LAB17, LAB67 #### [employer]: LLUVIA ELIAS ([id number]) [facility]ITALMel[facility] ELKINS RITTMAN (SWRLAB) [address] [place] [address] [place] Chloride [Moles/Vol] 103 mmol/L Normal 98-107 [facility] Comment on above: Performed By: #### L AB129, LAB18, LAB17, LAB67 #### [employer]: LLUVIA ELIAS ([id number]) [facility]ITALMel[facility] ELKINS RITTMAN (SWRLAB) [address] [place] [address] [place] CO2 [Moles/Vol] 23 mmol/L Normal 22-30 [facility] Comment on above: Performed By: #### L AB129, LAB18, LAB17, LAB67 #### [employer]: LLUVIA ELIAS ([id number]) [facility]Mel[facility] ELKINS RITTMAN (SWRLAB) [address] [place] [address] [place] Creatinine [Mass/Vol] 0.77 mg/dL Normal 0.66-1.25 [facility] Comment on above: Performed By: #### L AB129, LAB18, LAB17, LAB67 #### [employer]: LLUVIA ELIAS ([id number]) [facility]A BRITTNI RITTMAN (SWRLAB) [address] [place] [address] GLOMERULAR FILTRATION RATE ML/MIN/1.73 SQ M.PREDICTED >90.0 Normal >60.0 [facility] Comment on above: Result Comment: Calc ulation based on the Chronic Kidney Disease Epidemiology Collaboration (CKD-EPI) equation refit without adjustment for race Performed By: #### L AB129, LAB18, LAB17, LAB67 #### [employer]: LLUVIA ELIAS ([id number]) [facility]ITALMel[facility] ELKINS RITTMAN (SWRLAB) [address] [place] [address] Glucose [Mass/Vol] 97 mg/dL Normal [facility] Comment on above: Performed By: #### L AB129, LAB18, LAB17, LAB67 #### [employer]: LLUVIA ELIAS ([id number]) [facility]Mel[facility] ELKINS RITTMAN (SWRLAB) [address] [place] [address] Performed By: #### L AB90 #### [employer]: LLUVIA ELIAS ([id number]) [facility]Mel[facility] ELKINS RITTMAN (SWRLAB) [address] [place] [address] Potassium [Moles/Vol] 4.1 mmol/L Normal 3.5-5.1 [facility] Comment on above: Performed By: #### L AB129, LAB18, LAB17, LAB67 #### [employer]: LLUVIA ELIAS ([id number]) [facility] ELKINS RITTMAN (SWRLAB) [address] [place] [address] Protein [Mass/Vol] 6.9 g/dL Normal 6.3-8.2 [facility] Comment on above: Performed By: #### L AB129, LAB18, LAB17, LAB67 #### [employer]: LLUVIA ELIAS ([id number]) [facility]ITALMel[facility] ELKINS RITTMAN (SWRLAB) [address] [place] [address] Sodium [Moles/Vol] 135 mmol/L Normal 135-145 [facility] Comment on above: Performed By: #### L AB129, LAB18, LAB17, LAB67 #### [employer]: LLUVIA ELIAS ([id number]) [facility]ITALCOR[facility]LL (SWRLAB) [address] [place] [address] Urea nitrogen [Mass/Vol] 13 mg/dL Normal 9-20 [facility] Comment on above: Performed By: #### L AB129, LAB18, LAB17, LAB67 #### [employer]: LLUVIA ELIAS ([id number]) [facility] LINDACORDELL (SWRLAB) [address] [place] [address] Cobalamin (Vitamin B12) [Mas s/Vol]on 12-02-2022 Interpretation and review of laboratory results Normal [facility] Comprehensive metabolic 1998 panelon 12-02-2022 Albumin [Mass/Vol] 4.1 g/dL 3.5 - 5.0 g/dL [facility] ALP [Catalytic activity/Vol] 40 U/L 38 - 126 U/L [facility] ALT [Catalytic activity/Vol] 18 U/L 0 - 49 U/L [facility] Anion gap [Moles/Vol] 9 mmol/L 3 - 13 mmol/L [facility] AST [Catalytic activity/Vol] 17 U/L 15 - 46 U/L [facility] Bilirubin [Mass/Vol] 0.6 mg/dL 0.2 - 1 .3 mg/dL [facility] Calcium [Mass/Vol] 9.5 mg/dL 8.4 - 10. 4 mg/dL [facility] Chloride [Moles/Vol] 103 mmol/L 98 - 10 7 mmol/L [facility] CO2 [Moles/Vol] 23 mmol/L 22 - 30 mmol/L [facility] Creatinine [Mass/Vol] 0.77 mg/dL 0.66 - 1.25 mg/dL [facility] GFR/1.73 sq M.predicted MDRD (S/P/Bld) [Vol rate/Area] - PINF [facility] Comment on above: Calculation based on the Chronic Kidney Disease Epidemiology Collaboration (CKD-EPI) equation refit without adjustment for race Glucose [Mass/Vol] 97 mg/dL 70 - 100 mg/dL [facility] Interpretation and review of laboratory results Normal [facility] Potassium [Moles/Vol] 4.1 mmol/L 3.5 - 5.1 mmol/L [facility] Protein [Mass/Vol] 6.9 g/dL 6.3 - 8.2 g/dL [facility] Sodium [Moles/Vol] 135 mmol/L 135 - 145 mmol/L [facility] Urea nitrogen [Mass/Vol] 13 mg/dL 9 - 20 mg/dL [facility] HEMOGLOBIN A1Con 12-02-2022 HbA1c (Bld) [Mass fraction] 5.0 % Normal <5.7 [facility] Comment on above: Result Comment: Norm al less than 5.7% Prediabetes 5.7% to 6.4% Diabetes 6.5% or higher --HgbA1C levels may not be accurate in patients who have renal disease, received recent blood transfusions, are anemic, or who have dyshemoglobinemia. Performed By: #### L AB90 #### [employer]: LLUVIA ELIAS ([id number]) [facility] BRITTNI Practice IgnitionCORDELL (Fly VictorLAB) [address] [place] [address] Hemoglobin A1con 12-02-2022 Average glucose Estimated from glycated hemoglobin (Bld) [Mass/Vol] 97 mg/dL [facility] HbA1c (Bld) [Mass fraction] 5.0 % NINF - 5.7 % [facility] Comment on above: Normal less than 5.7 % Prediabetes 5.7% to 6.4% Diabetes 6.5% or higher --HgbA1C levels may not be accurate in patients who have renal disease, received recent blood transfusions, are anemic, or who have dyshemoglobinemia. [facility] LIPID PANELon 12-02-2022 Cholesterol [Mass/Vol] 228 mg/dL High <[address] [facility] Comment on above: Performed By: #### L AB129, LAB18, LAB17, LAB67 #### [employer]: LLUVIA ELIAS ([id number]) [facility] BRITTNI RacerTimesCORDELL (EpiSensorRLAB) [address] [place] [address] Cholesterol in HDL [Mass/Vol] 56 mg/dL Normal 40-60 [facility] Comment on above: Performed By: #### L AB129, LAB18, LAB17, LAB67 #### [employer]: LLUVIA ELIAS ([id number]) [facility] ELKINS RITTMAN (SWRLAB) [address] Cholesterol.total/Chol esterol in HDL [Mass ratio] 4 {ratio} Normal [facility] Comment on above: Result Comment: Ref Range: < 3 Low Risk for CHD 3-6 Mod Risk for CHD > 6 High Risk for CHD Performed By: #### L AB129, LAB18, LAB17, LAB67 #### [employer]: LLUVIA ELIAS ([id number]) [facility] ELKINS RITTMAN (SWRLAB) [address] LOW DENSITY LIPOPROTEIN 152 mg/dL High 0-<100 [facility] Comment on above: Performed By: #### L AB129, LAB18, LAB17, LAB67 #### [employer]: LLUVIA ELIAS ([id number]) [facility]ITAL[facility] ELKINS RITTMAN (SWRLAB) [address] [place] [address] Triglyceride [Mass/Vol] 101 mg/dL Normal <150 [facility] Comment on above: Performed By: #### L AB129, LAB18, LAB17, LAB67 #### [employer]: LLUVIA ELIAS ([id number]) [facility] ELKINS RITTMAN (SWRLAB) [address] [place] [address] Lipid 1996 panelon 3 Cholesterol [Mass/Vol] 228 mg/dL High NINF - 200 mg/dL [facility] Cholesterol in HDL [Mass/Vol] 56 mg/dL 40 - 60 mg/dL [facility] Cholesterol in LDL [Mass/Vol] 152 mg/dL High 0 - <100 [facility] Cholesterol.total/Chol esterol in HDL [Mass ratio] 4 {ratio} [facility] Comment on above: Ref Range: < 3 Low Risk for CHD 3-6 Mod Risk for CHD > 6 High Risk for CHD Interpretation and review of laboratory results Abnormal [facility] Triglyceride [Mass/Vol] 101 mg/dL NINF - 150 mg/dL [facility] No Panel Informationon 12-02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 [Moles/Vol] 26 mmol/L 22 - 30 mmol/L [facility] Work Phone: [phone] Creatinine [Mass/Vol] 0.47 mg/dL Low 0.52 - 1.25 mg/dL [facility] Work Phone: [phone] EGFR IF NonAfrican Bahamian >90.0 >60 mL/min [facility] Work Phone: [phone] Comment on above: KDIGO guidelines pro vide the following GFR categories: Stage GFR(ml/min/1.73 m2) Terms G1 >=90 Normal or high G2 60-89 Mildly decreased* G3a 45-59 Mildly to moderately decreased G3b 30-44 Moderately to severely decreased G4 15-29 Severely decreased G5 <15 Kidney failure *Relative to young adult level. In the absence of evidence of kidney damage, neither GFR category G1 nor G2 fulfill the criteria for CKD. The CKD-EPI equation is validated in individuals 18 years of age and older. Currently the best equation for estimating glomerular filtration rate (GFR) from serum creatinine in children is the Bedside Chakraborty equation. It is less accurate in patients with extremes of muscle mass, restriction of dietary protein, ingestion of creatine, extra-renal metabolism of creatinine, or treatment with medications that affect renal tubular creatinine secretion. GFR/1.73 sq M.predicted among blacks MDRD (S/P/Bld) [Vol rate/Area] mL/min/{1.73_m2} >60 mL/min [facility] Work Phone: [phone] Glucose [Mass/Vol] 91 mg/dL 70 - 100 mg/dL [facility] Work Phone: [phone] Interpretation and review of laboratory results Abnormal [facility] Work Phone: [phone] Potassium [Moles/Vol] 3.8 mmol/L 3.5 - 5.1 mmol/L [facility] Work Phone: [phone] Sodium [Moles/Vol] 137 mmol/L 135 - 145 mmol/L [facility] Work Phone: [phone] Urea nitrogen (BldV) [Mass/Vol] 15 mg/dL 7 - 17 mg/dL [facility] Work Phone: [phone] CBC Auto DifferentialOrdered By: Chris Patel on 11-24-2020 Absolute Baso # 0.1 10*3/uL 0.0 - 0.2 10*3/uL [facility] Work Phone: [phone] Absolute Neut # 2.5 10*3/uL 1.8 - 7.0 10*3/uL [facility] Work Phone: [phone] Basophils/100 WBC (Bld) 1.1 % 0.0 - 2.0 % [facility] Work Phone: [phone] Eosinophils (Bld) [#/Vol] 0.4 10*3/uL 0.0 - 0.5 10*3/uL [facility] Work Phone: [phone] Eosinophils/100 WBC (Bld) 6.7 % High 1.0 - 6.0 % [facility] Work Phone: [phone] Granulocytes/100 WBC (Bld) 41.7 % 40.0 - 80.0 % [facility] Work Phone: [phone] Hematocrit (Bld) [Volume fraction] 41.2 % 40.0 - 52.0 % [facility] Work Phone: [phone] Hemoglobin.gastrointes tinal spec 1 Ql (Stl) 13.8 g/dL 13.0 - 18.0 g/dL [facility] Work Phone: [phone] Interpretation and review of laboratory results Abnormal [facility] Work Phone: [phone] Lymphocytes (Bld) [#/Vol] 2.4 10*3/uL 1.0 - 4.3 10*3/uL [facility] Work Phone: [phone] Lymphocytes/100 WBC (Bld) 39.9 % 20.0 - 40.0 % [facility] Work Phone: [phone] MCH (RBC) [Entitic mass] 31.1 pg 26.0 - 34.0 pg [facility] Work Phone: [phone] MCHC (RBC) [Mass/Vol] 33.4 % 32.0 - 36.0 % [facility] Work Phone: [phone] MCV (RBC) [Entitic vol] 93.0 fL 80.0 - 98.0 fL [facility] Work Phone: [phone] Monocytes (Bld) [#/Vol] 0.6 10*3/uL 0.0 - 0.8 10*3/uL [facility] Work Phone: [phone] Monocytes/100 WBC (Bld) 10.6 % High 2.0 - 10.0 % [facility] Work Phone: [phone] Platelet distribution width (Bld) [Ratio] 13.6 % 11.5 - 14.5 % [facility] Work Phone: [phone] Platelet mean volume (Bld) [Entitic vol] 9.3 fL 7.4 - 10.4 fL [facility] Work Phone: [phone] Platelets (Bld) [#/Vol] 189 10*3/uL 140 - 440 10*3/uL [facility] Work Phone: [phone] RBC (Bld) [#/Vol] 4.43 10*6/uL 4.40 - 5.9 0 10*6/uL [facility] Work Phone: [phone] WBC (Bld) [#/Vol] 6.1 10*3/uL 3.6 - 10.7 10*3/uL [facility] Work Phone: [phone] Test Performed by [facility], [address] [place] [id number] [place], [place] [address] Work Phone: [phone] [facility] Work Phone: [phone] Haloperidolon 11-24-2020 Haloperidol 7.2 ng/mL Normal 5.0-20.0 [facility] Comment on above: Result Comment: INTE RPRETIVE INFORMATION: Haloperidol Level Therapeutic Range: 5.0-20.0 ng/mL Toxic: Greater than 50 ng/mL The therapeutic range is based on serum pre-dose (trough) draw at steady-state concentration. Adverse effects may include drowsiness, blurred vision, tardive dyskinesia, tachycardia, hypotension and muscular rigidity. This test was developed and its performance characteristics determined by [facility]. It has not been cleared or approved by the [place] Food and Drug Administration. This test was performed in a CLIA certified laboratory and is intended for clinical purposes. Performed By: [facility] [address] [place] [address] Stone Spreader Operator: Apoorva Garcia MD Performed By: #### H EMDF, CK3, CMP3, MG3 #### [facility] [address] [place] [address] Hemogram w/ Autodiffon 11-24 Abs Baso Cnt 0.1 10*3/uL Normal 0.0-0.2 [facility] Comment on above: Performed By: #### H EMDF, CK3, CMP3, MG3 #### [facility] [address] [place] [address] Abs Neutrophile Cnt 2.5 10*3/uL Normal 1.8-7.0 [facility] Comment on above: Performed By: #### H EMDF, CK3, CMP3, MG3 #### [facility] [address] [place] [address] Basophils/100 WBC (Bld) 1.1 % Normal 0.0-2.0 [facility] Comment on above: Performed By: #### H EMDF, CK3, CMP3, MG3 #### [facility] [address] [place] [address] Eosinophils (Bld) [#/Vol] 0.4 10*3/uL Normal 0.0-0.5 [facility] Comment on above: Performed By: #### H EMDF, CK3, CMP3, MG3 #### [facility] [address] [place] [address] Eosinophils/100 WBC (Bld) 6.7 % High 1.0-6.0 [facility] Comment on above: Performed By: #### H EMDF, CK3, CMP3, MG3 #### [facility] [address] [place] [address] Erythrocyte distribution width (RBC) [Ratio] 13.6 % Normal 11.5-14.5 [facility] Comment on above: Performed By: #### H EMDF, CK3, CMP3, MG3 #### [employer] [address] [place] [address] Granulocytes/100 WBC (Bld) 41.7 % Normal 40.0-80.0 [facility] Comment on above: Performed By: #### H EMDF, CK3, CMP3, MG3 #### [facility] [address] [place] [address] Hematocrit (Bld) [Volume fraction] 41.2 % Normal 40.0-52.0 [facility] Comment on above: Performed By: #### H EMDF, CK3, CMP3, MG3 #### [facility] [address] [place] [address] Hemoglobin (Bld) [Mass/Vol] 13.8 g/dL Normal 13.0-18.0 [facility] Comment on above: Performed By: #### H EMDF, CK3, CMP3, MG3 #### [facility] [address] [place] [id number] Lymphocytes (Bld) [#/Vol] 2.4 10*3/uL Normal 1.0-4.3 [facility] Comment on above: Performed By: #### H EMDF, CK3, CMP3, MG3 #### [facility] [address] [place] [id number] Lymphocytes/100 WBC (Bld) 39.9 % Normal 20.0-40.0 [facility] Comment on above: Performed By: #### H EMDF, CK3, CMP3, MG3 #### [facility] [address] [place] [address] MCH (RBC) [Entitic mass] 31.1 pg Normal 26.0-34.0 [facility] Comment on above: Performed By: #### H EMDF, CK3, CMP3, MG3 #### [facility] [address] [place] [address] MCHC 33.4 % Normal 32.0-36.0 [facility] Comment on above: Performed By: #### H EMDF, CK3, CMP3, MG3 #### [facility] [address] [place] [address] MCV (RBC) [Entitic vol] 93.0 fL Normal 80.0-98.0 [facility] Comment on above: Performed By: #### H EMDF, CK3, CMP3, MG3 #### [facility] [address] [place] [address] Monocytes (Bld) [#/Vol] 0.6 10*3/uL Normal 0.0-0.8 [facility] Comment on above: Performed By: #### H EMDF, CK3, CMP3, MG3 #### [facility] [address] [place] [address] Monocytes/100 WBC (Bld) 10.6 % High 2.0-10.0 [facility] Comment on above: Performed By: #### H EMDF, CK3, CMP3, MG3 #### [facility] [address] [place] [address] Platelet mean volume (Bld) [Entitic vol] 9.3 fL Normal 7.4-10.4 [facility] Comment on above: Performed By: #### H EMDF, CK3, CMP3, MG3 #### [facility] [address] [place] [address] Platelets (Bld) [#/Vol] 189 10*3/uL Normal 140-440 [facility] Comment on above: Performed By: #### H EMDF, CK3, CMP3, MG3 #### [facility] [address] [place] [address] RBC (Bld) [#/Vol] 4.43 10*6/uL Normal 4.40-5.90 [facility] Comment on above: Performed By: #### H EMDF, CK3, CMP3, MG3 #### [facility] [address] [place] [address] WBC (Bld) [#/Vol] 6.1 10*3/uL Normal 3.6-10.7 [facility] Comment on above: Performed By: #### H EMDF, CK3, CMP3, MG3 #### [facility] [address] [place] [address] Magnesiumon 11-24-2020 Magnesium [Mass/Vol] 1.9 mg/dL Normal 1.6-2.3 [facility] Comment on above: Performed By: #### H EMDF, CK3, CMP3, MG3 #### [facility] [address] [place] [address] MagnesiumOrdered By: Chris mata on 11-24-2020 Magnesium [Mass/Vol] 1.9 mg/dL 1.6 - 2 .3 mg/dL [facility] Work Phone: No Panel InformationOrdered By: Chris Patel on 11-24-2020 Test Performed by [facility], [address] [place] [address] [facility] Work Phone: [facility] Work Phone: Basic Metabolic Panelon 11-07 Calcium [Mass/Vol] 8.9 mg/dL Normal 8.4-10.4 [facility] Comment on above: Performed By: #### M G3, BMP3, HEMDF #### [facility] [address] [place] [address] Glucose [Mass/Vol] 88 mg/dL Normal 70-100 [facility] Comment on above: Performed By: #### M G3, BMP3, HEMDF #### [facility] [address] [place] [address] Urea nitrogen [Mass/Vol] 11 mg/dL Normal 7-17 [facility] Comment on above: Performed By: #### M G3, BMP3, HEMDF #### [facility] [address] [place] [address] Anion gap [Moles/Vol] 2 mmol/L Low 3-13 [facility] Comment on above: Performed By: #### M G3, BMP3, HEMDF #### [facility] [address] [place] [address] CO2 [Moles/Vol] 23 mmol/L Normal 22-30 [facility] Comment on above: Performed By: #### M G3, BMP3, HEMDF #### [facility] [address] [place] [address] Creatinine [Mass/Vol] 0.47 mg/dL Low 0.52-1.25 [facility] Comment on above: Performed By: #### M G3, BMP3, HEMDF #### [facility] [address] [place] [address] eGFR OTHER > 90.0 Normal >60 [facility] Comment on above: Result Comment: KDIG O guidelines provide the following GFR categories: Stage GFR(ml/min/1.73 m2) Terms G1 >=90 Normal or high G2 60-89 Mildly decreased* G3a 45-59 Mildly to moderately decreased G3b 30-44 Moderately to severely decreased G4 15-29 Severely decreased G5 <15 Kidney failure *Relative to young adult level. In the absence of evidence of kidney damage, neither GFR category G1 nor G2 fulfill the criteria for CKD. The CKD-EPI equation is validated in individuals 18 years of age and older. Currently the best equation for estimating glomerular filtration rate (GFR) from serum creatinine in children is the Bedside Chakraborty equation. It is less accurate in patients with extremes of muscle mass, restriction of dietary protein, ingestion of creatine, extra-renal metabolism of creatinine, or treatment with medications that affect renal tubular creatinine secretion. Performed By: #### Johnny G3, BMP3, HEMDF #### [facility] [address] [place] [address] GFR/1.73 sq M.predicted among blacks MDRD (S/P/Bld) [Vol rate/Area] mL/min/{1.73_m2} Normal >60 [facility] Comment on above: Performed By: #### Johnny G3, BMP3, HEMDF #### [facility] [address] [place] [address] Chloride [Moles/Vol] 111 mmol/L High 98-107 [facility] Comment on above: Performed By: #### M G3, BMP3, HEMDF #### [facility] [address] [place] [address] Potassium [Moles/Vol] 3.8 mmol/L Normal 3.5-5.1 [facility] Comment on above: Performed By: #### Johnny G3, BMP3, HEMDF #### [facility] [address] [place] [address] Sodium [Moles/Vol] 136 mmol/L Normal 135-145 [facility] Comment on above: Performed By: #### M G3, BMP3, HEMDF #### [facility] [address] [place] [address] Basic Metabolic PanelOrdered By: Chris Patel on 11-23-2020 Anion gap [Moles/Vol] 2 mmol/L Low 3 - 13 mmol/L [facility] Work Phone: Calcium [Mass/Vol] 8.9 mg/dL 8.4 - 10. 4 mg/dL [facility] Work Phone: Chloride [Moles/Vol] 111 mmol/L High 98 - 10 7 mmol/L [facility] Work Phone: CO2 [Moles/Vol] 23 mmol/L 22 - 30 mmol/L [facility] Work Phone: Creatinine [Mass/Vol] 0.47 mg/dL Low 0.52 - 1.25 mg/dL [facility] Work Phone: EGFR IF NonAfrican Bahamian >90.0 >60 mL/min [facility] Work Phone: Comment on above: KDIGO guidelines pro vide the following GFR categories: Stage GFR(ml/min/1.73 m2) Terms G1 >=90 Normal or high G2 60-89 Mildly decreased* G3a 45-59 Mildly to moderately decreased G3b 30-44 Moderately to severely decreased G4 15-29 Severely decreased G5 <15 Kidney failure *Relative to young adult level. In the absence of evidence of kidney damage, neither GFR category G1 nor G2 fulfill the criteria for CKD. The CKD-EPI equation is validated in individuals 18 years of age and older. Currently the best equation for estimating glomerular filtration rate (GFR) from serum creatinine in children is the Bedside Chakraborty equation. It is less accurate in patients with extremes of muscle mass, restriction of dietary protein, ingestion of creatine, extra-renal metabolism of creatinine, or treatment with medications that affect renal tubular creatinine secretion. GFR/1.73 sq M.predicted among blacks MDRD (S/P/Bld) [Vol rate/Area] mL/min/{1.73_m2} >60 mL/min [facility] Work Phone: Glucose [Mass/Vol] 88 mg/dL 70 - 100 mg/dL [facility] Work Phone: Interpretation and review of laboratory results Abnormal [facility] Work Phone: [phone] Potassium [Moles/Vol] 3.8 mmol/L 3.5 - 5.1 mmol/L [facility] Work Phone: [phone] Sodium [Moles/Vol] 136 mmol/L 135 - 145 mmol/L [facility] Work Phone: [phone] Urea nitrogen (BldV) [Mass/Vol] 11 mg/dL 7 - 17 mg/dL [facility] Work Phone: [phone] CBC Auto DifferentialOrdered By: Chris Patel on 11-23-2020 Absolute Baso # 0.1 10*3/uL 0.0 - 0.2 10*3/uL [facility] Work Phone: [phone] Absolute Neut # 4.0 10*3/uL 1.8 - 7.0 10*3/uL [facility] Work Phone: [phone] Basophils/100 WBC (Bld) 1.0 % 0.0 - 2.0 % [facility] Work Phone: [phone] Eosinophils (Bld) [#/Vol] 0.4 10*3/uL 0.0 - 0.5 10*3/uL [facility] Work Phone: [phone] Eosinophils/100 WBC (Bld) 5.3 % 1.0 - 6.0 % [facility] Work Phone: [phone] Granulocytes/100 WBC (Bld) 55.6 % 40.0 - 80.0 % [facility] Work Phone: [phone] Hematocrit (Bld) [Volume fraction] 41.7 % 40.0 - 52.0 % [facility] Work Phone: [phone] Hemoglobin.gastrointes tinal spec 1 Ql (Stl) 14.7 g/dL 13.0 - 18.0 g/dL [facility] Work Phone: [phone] Lymphocytes (Bld) [#/Vol] 2.1 10*3/uL 1.0 - 4.3 10*3/uL [facility] Work Phone: [phone] Lymphocytes/100 WBC (Bld) 28.7 % 20.0 - 40.0 % [facility] Work Phone: [phone] MCH (RBC) [Entitic mass] 32.3 pg 26.0 - 34.0 pg [facility] Work Phone: [phone] MCHC (RBC) [Mass/Vol] 35.1 % 32.0 - 36.0 % [facility] Work Phone: [phone] MCV (RBC) [Entitic vol] 91.9 fL 80.0 - 98.0 fL [facility] Work Phone: [phone] Monocytes (Bld) [#/Vol] 0.7 10*3/uL 0.0 - 0.8 10*3/uL [facility] Work Phone: [phone] Monocytes/100 WBC (Bld) 9.4 % 2.0 - 10.0 % [facility] Work Phone: [phone] Platelet distribution width (Bld) [Ratio] 13.7 % 11.5 - 14.5 % [facility] Work Phone: [phone] Platelet mean volume (Bld) [Entitic vol] 9.0 fL 7.4 - 10.4 fL [facility] Work Phone: [phone] Platelets (Bld) [#/Vol] 177 10*3/uL 140 - 440 10*3/uL [facility] Work Phone: [phone] RBC (Bld) [#/Vol] 4.54 10*6/uL 4.40 - 5.9 0 10*6/uL [facility] Work Phone: [phone] WBC (Bld) [#/Vol] 7.1 10*3/uL 3.6 - 10.7 10*3/uL [facility] Work Phone: [phone] Test Performed by [facility], [address], [place], [place] [address] [facility] Work Phone: [phone] [facility] Work Phone: [phone] Hemogram w/ Autodiffon 11-23 Abs Baso Cnt 0.1 10*3/uL Normal 0.0-0.2 [facility] Comment on above: Performed By: #### M G3, BMP3, HEMDF #### [facility] [address] [place] [address] Abs Neutrophile Cnt 4.0 10*3/uL Normal 1.8-7.0 [facility] Comment on above: Performed By: #### Johnny G3, BMP3, HEMDF #### [facility] [address] [place] [address] Basophils/100 WBC (Bld) 1.0 % Normal 0.0-2.0 [facility] Comment on above: Performed By: #### Johnny G3, BMP3, HEMDF #### [facility] [address] [place] [address] Eosinophils (Bld) [#/Vol] 0.4 10*3/uL Normal 0.0-0.5 [facility] Comment on above: Performed By: #### Johnny G3, BMP3, HEMDF #### [facility] [address] [place] [address] Eosinophils/100 WBC (Bld) 5.3 % Normal 1.0-6.0 [facility] Comment on above: Performed By: #### Johnny [place] BMP3, HEMDF #### [facility] [address] [place] [address] Erythrocyte distribution width (RBC) [Ratio] 13.7 % Normal 11.5-14.5 [facility] Comment on above: Performed By: #### Johnny G3, BMP3, HEMDF #### [facility] [address] [place] [address] Granulocytes/100 WBC (Bld) 55.6 % Normal 40.0-80.0 [facility] Comment on above: Performed By: #### Johnny G3 BMP3, HEMDF #### [facility] [address] [place] [address] Hematocrit (Bld) [Volume fraction] 41.7 % Normal 40.0-52.0 [facility] Comment on above: Performed By: #### Johnny G3, BMP3, HEMDF #### [facility] [address] [place] [address] Hemoglobin (Bld) [Mass/Vol] 14.7 g/dL Normal 13.0-18.0 [facility] Comment on above: Performed By: #### Johnny G3, BMP3, HEMDF #### [facility] [address] [place] [address] Lymphocytes (Bld) [#/Vol] 2.1 10*3/uL Normal 1.0-4.3 [facility] Comment on above: Performed By: #### M G3, BMP3, HEMDF #### [facility] [address] [place] [address] Lymphocytes/100 WBC (Bld) 28.7 % Normal 20.0-40.0 [facility] Comment on above: Performed By: #### Johnny G3, BMP3, HEMDF #### [facility] [address] [place] [address] MCH (RBC) [Entitic mass] 32.3 pg Normal 26.0-34.0 [facility] Comment on above: Performed By: #### Johnny G3, BMP3, HEMDF #### [facility] [address] [place] [address] MCHC 35.1 % Normal 32.0-36.0 [facility] Comment on above: Performed By: #### Johnny G3, BMP3, HEMDF #### [facility] [address] [place] [address] MCV (RBC) [Entitic vol] 91.9 fL Normal 80.0-98.0 [facility] Comment on above: Performed By: #### Johnny G3, BMP3, HEMDF #### [facility] [address] [place] [address] Monocytes (Bld) [#/Vol] 0.7 10*3/uL Normal 0.0-0.8 [facility] Comment on above: Performed By: #### Johnny G3, BMP3, HEMDF #### [facility] [address] [place] [address] Monocytes/100 WBC (Bld) 9.4 % Normal 2.0-10.0 [facility] Comment on above: Performed By: #### Johnny G3, BMP3, HEMDF #### [facility] [address] [place] [address] Platelet mean volume (Bld) [Entitic vol] 9.0 fL Normal 7.4-10.4 [facility] Comment on above: Performed By: #### M G3, BMP3, HEMDF #### [facility] [address] [place] [address] Platelets (Bld) [#/Vol] 177 10*3/uL Normal 140-440 [facility] Comment on above: Performed By: #### M G3, BMP3, HEMDF #### [facility] [address] [place] [address] RBC (Bld) [#/Vol] 4.54 10*6/uL Normal 4.40-5.90 [facility] Comment on above: Performed By: #### M G3, BMP3, HEMDF #### [facility] [address] [place] [address] WBC (Bld) [#/Vol] 7.1 10*3/uL Normal 3.6-10.7 [facility] Comment on above: Performed By: #### M G3, BMP3, HEMDF #### [facility] [address] [place] [address] Magnesiumon 11-23-2020 Magnesium [Mass/Vol] 1.9 mg/dL Normal 1.6-2.3 [facility] Comment on above: Performed By: #### M G3, BMP3, HEMDF #### [facility] [address] [place] [address] MagnesiumOrdered By: Chris mata on 11-23-2020 Magnesium [Mass/Vol] 1.9 mg/dL 1.6 - 2 .3 mg/dL [facility] Work Phone: No Panel InformationOrdered By: Chris Patel on 11-23-2020 Test Performed by [facility], [address] [place] [address] [facility] Work Phone: [facility] Work Phone: CULTURE URINEon 11-22-2020 CULTURE URINE CULTURE URINE --> St atus: F Normal urogenital andrea present. Normal [facility] Comment on above: Performed By: #### M G3, BMP3, HEMDF #### [facility] [address] [place] [address] Culture, UrineOrdered By: Do mica Conklin on 11-22-2020 Bacteria identified Cx Nom (U) Normal urogenital andrea present. 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1970 Requested By: EDMUND CONKLIN Order Number: [id number] Reading MD: James Dial Measurements Intervals [place] Rate: 81 P: 44 [place]: 156 QRS: 4 QRSD: 80 T: 60 QT: 352 QTc: 409 Interpretive Statements SINUS RHYTHM Compared to ECG 03/31/2020 12:44:34 No significant changes Electronically Signed On 11-21-2020 12:35:22 EDT by James Dial [facility] Work Phone: [place], [facility] Incoming Cardiology Results From [facility] [facility] - 11/21/2020 12:36 PM EDT [facility] Test Date: 2020-11-20 Pat Name: [facility] Department: ER Room: 467 Gender: M 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 [address] Acetaminophen levelOrdered B y: Edmund Conklin on 11-20-2020 Acetaminophen Level <10.0 10.0 - 3 0.0 ug/mL [facility] Work Phone: [phone] Add On Lab TestOrdered By: Carolee karri Conklin on 11-20-2020 Add On Accepted [facility] Work Phone: [phone] Comment on above: Specimen available & acceptable for analysis. Test Performed by [facility], [address] , [place] [address] [facility] Work Phone: 1) [facility] Work Phone: 1) Add on test from HISon 11-20 Add on test from HIS Accepted Normal [facility] Comment on above: Result Comment: Spec imen available & acceptable for analysis. Performed By: #### H EMDF, CK3, CMP3, MG3 #### [facility] [address] [place] [address] CBC WITH AUTO DIFFERENTIALOr dered By: Edmund Conklin on 11-20-2020 Absolute Baso # 0.1 10*3/uL 0.0 - 0.2 10*3/uL [facility] Work Phone: [phone] Absolute Neut # 4.2 10*3/uL 1.8 - 7.0 10*3/uL [facility] Work Phone: [phone]) 222 Basophils/100 WBC (Bld) 0.7 % 0.0 - 2.0 % [facility] Work Phone: 1) 222 Eosinophils (Bld) [#/Vol] 0.2 10*3/uL 0.0 - 0.5 10*3/uL [facility] Work Phone: 1) 222 Eosinophils/100 WBC (Bld) 3.3 % 1.0 - 6.0 % [facility] Work Phone: 1) 222 Granulocytes/100 WBC (Bld) 58.8 % 40.0 - 80.0 % [facility] Work Phone: 1) 222 Hematocrit (Bld) [Volume fraction] 45.3 % 40.0 - 52.0 % [facility] Work Phone: [phone] Hemoglobin.gastrointes tinal spec 1 Ql (Stl) 15.4 g/dL 13.0 - 18.0 g/dL [facility] Work Phone: [phone] Lymphocytes (Bld) [#/Vol] 2.1 10*3/uL 1.0 - 4.3 10*3/uL [facility] Work Phone: 1() 222 Lymphocytes/100 WBC (Bld) 29.2 % 20.0 - 40.0 % [facility] Work Phone: 1() 222 MCH (RBC) [Entitic mass] 31.2 pg 26.0 - 34.0 pg [facility] Work Phone: 1() 222 MCHC (RBC) [Mass/Vol] 34.1 % 32.0 - 36.0 % [facility] Work Phone: [phone] MCV (RBC) [Entitic vol] 91.5 fL 80.0 - 98.0 fL [facility] Work Phone: 1() 222 Monocytes (Bld) [#/Vol] 0.6 10*3/uL 0.0 - 0.8 10*3/uL [facility] Work Phone: 1() 222 Monocytes/100 WBC (Bld) 8.0 % 2.0 - 10.0 % [facility] Work Phone: [phone] Platelet distribution width (Bld) [Ratio] 13.2 % 11.5 - 14.5 % [facility] Work Phone: 1() 222 Platelet mean volume (Bld) [Entitic vol] 8.8 fL 7.4 - 10.4 fL [facility] Work Phone: 1() 222 Platelets (Bld) [#/Vol] 235 10*3/uL 140 - 440 10*3/uL [facility] Work Phone: 1() 222 RBC (Bld) [#/Vol] 4.95 10*6/uL 4.40 - 5.9 0 10*6/uL [facility] Work Phone: [phone] WBC (Bld) [#/Vol] 7.1 10*3/uL 3.6 - 10.7 10*3/uL [facility] Work Phone: Test Performed by [facility], [address] , [place], [place] [address] [facility] Work Phone: [facility] Work Phone: CKon 11-20-2020 CK [Catalytic activity/Vol] 58 U/L Normal 30-170 [facility] Comment on above: Performed By: #### M G3, BMP3, HEMDF #### [facility] [address] [place] [address] CKOrdered By: Edmund Conklin on 11-20-2020 CK [Catalytic activity/Vol] 58 U/L 30 - 170 U/L [facility] Work Phone: COVID and Resp PCR Panelon 1 SARS-CoV-2 (COVID-19) RNA DYLON+probe Ql (Unsp spec) COVID and Resp PCR Panel --> Status: F NEGATIVE: No targets were detected by the [employer] Upper Respiratory Pathogens PCR Panel. _ Expected Result: Not Detected The [employer] Upper Respiratory Pathogens PCR Panel can detect the following targets: SARS-CoV-2, Adenovirus, Coronavirus 229E, Coronavirus HKU1, Coronavirus NL63, Coronavirus OC43, Human Metapneumovirus, Human Rhinovirus/Enterovirus, Influenza A, Influenza B, Parainfluenza Virus 1, Parainfluenza Virus 2, Parainfluenza Virus 3, Parainfluenza Virus 4, Respiratory Syncytial Virus, Bordetella pertussis, Bordetella parapertussis, Chlamydia pneumoniae, Mycoplasma pneumoniae. Negative results do not preclude SARS-CoV-2 infection and should not be used as the sole basis for treatment or other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 loya on 11-20-2020 Ethanol Lvl <0.010 0.000 - 0.010 g/dL [facility] Phone: Comment on above: NOTE: This result is for medical treatment only. Analysis performed using non-forensic procedures. Ethanol Serum/Plasmaon 11-20 Ethanol-Serum/Plasma < 0.010 Normal 0.000-0.010 [facility] [employer] [facility] Comment on above: Result Comment: NOTE : This result is for medical treatment only. Analysis performed using non-forensic procedures. Performed By: #### M G3, BMP3, HEMDF #### [facility] [address] [place] [address] Hemogram w/ Autodiffon 11-20 Abs Baso Cnt 0.1 10*3/uL Normal 0.0-0.2 [facility] Comment on above: Performed By: #### H EMDF, CK3, ETOH4, ACET4, SAL33, CMP3, CVCCL, LACT3, TROPN #### [address] [place] [address] #### [facility] #### [address] [id number] Abs Neutrophile Cnt 4.2 10*3/uL Normal 1.8-7.0 [facility] Comment on above: Performed By: #### H EMDF, CK3, ETOH4, ACET4, SAL33, CMP3, CVCCL, LACT3, TROPN #### [place] [address] #### PCAL #### [address] Basophils/100 WBC (Bld) 0.7 % Normal 0.0-2.0 [facility] Comment on above: Performed By: #### H EMDF, CK3, ETOH4, ACET4, SAL33, CMP3, CVCCL, LACT3, TROPN #### [place] [address] #### PCAL #### [address] Eosinophils (Bld) [#/Vol] 0.2 10*3/uL Normal 0.0-0.5 [facility] Comment on above: Performed By: #### H EMDF, CK3, ETOH4, ACET4, SAL33, CMP3, CVCCL, LACT3, TROPN #### [place] [address] #### PCAL #### [address] [address] Eosinophils/100 WBC (Bld) 3.3 % Normal 1.0-6.0 [facility] Comment on above: Performed By: #### H EMDF, CK3, ETOH4, ACET4, SAL33, CMP3, CVCCL, LACT3, TROPN #### [address] [place], [place] #### PCAL #### [address] Erythrocyte distribution width (RBC) [Ratio] 13.2 % Normal 11.5-14.5 [facility] Comment on above: Performed By: #### H EMDF, CK3, ETOH4, ACET4, SAL33, CMP3, CVCCL, LACT3, TROPN #### [address] [place], [place] #### PCAL #### [address] Granulocytes/100 WBC (Bld) 58.8 % Normal 40.0-80.0 [facility] Comment on above: Performed By: #### H EMDF, CK3, ETOH4, ACET4, SAL33, CMP3, CVCCL, LACT3, TROPN #### [address] #### PCAL #### [address] Hematocrit (Bld) [Volume fraction] 45.3 % Normal 40.0-52.0 [facility] Comment on above: Performed By: #### H EMDF, CK3, ETOH4, ACET4, SAL33, CMP3, CVCCL, LACT3, TROPN #### [address] [place], [place] #### PCAL #### [address] Hemoglobin (Bld) [Mass/Vol] 15.4 g/dL Normal 13.0-18.0 [facility] Comment on above: Performed By: #### H EMDF, CK3, ETOH4, ACET4, SAL33, CMP3, CVCCL, LACT3, TROPN #### [address] [place] [id number] #### PCAL #### [address] Lymphocytes (Bld) [#/Vol] 2.1 10*3/uL Normal 1.0-4.3 [facility] Comment on above: Performed By: #### H EMDF, CK3, ETOH4, ACET4, SAL33, CMP3, CVCCL, LACT3, TROPN #### [place] [id number] #### PCAL #### [address] Lymphocytes/100 WBC (Bld) 29.2 % Normal 20.0-40.0 [facility] Comment on above: Performed By: #### H EMDF, CK3, ETOH4, ACET4, SAL33, CMP3, CVCCL, LACT3, TROPN #### [address] [address] #### PCAL #### [address] MCH (RBC) [Entitic mass] 31.2 pg Normal 26.0-34.0 [facility] Comment on above: Performed By: #### H EMDF, CK3, ETOH4, ACET4, SAL33, CMP3, CVCCL, LACT3, TROPN #### [address] [address] #### PCAL #### [address] MCHC 34.1 % Normal 32.0-36.0 [facility] Comment on above: Performed By: #### H EMDF, CK3, ETOH4, ACET4, SAL33, CMP3, CVCCL, LACT3, TROPN #### [address] #### PCAL #### [address] MCV (RBC) [Entitic vol] 91.5 fL Normal 80.0-98.0 [facility] Comment on above: Performed By: #### H EMDF, CK3, ETOH4, ACET4, SAL33, CMP3, CVCCL, LACT3, TROPN #### [facility] [address] [place] [address] #### PCAL #### [address] Monocytes (Bld) [#/Vol] 0.6 10*3/uL Normal 0.0-0.8 [facility] Comment on above: Performed By: #### H EMDF, CK3, ETOH4, ACET4, SAL33, CMP3, CVCCL, LACT3, TROPN #### [facility] [address] [place] [address] #### PCAL #### [address] Monocytes/100 WBC (Bld) 8.0 % Normal 2.0-10.0 [facility] Comment on above: Performed By: #### H EMDF, CK3, ETOH4, ACET4, SAL33, CMP3, CVCCL, LACT3, TROPN #### [address] [address] #### PCAL #### [address] Platelet mean volume (Bld) [Entitic vol] 8.8 fL Normal 7.4-10.4 [facility] Comment on above: Performed By: #### H EMDF, CK3, ETOH4, ACET4, SAL33, CMP3, CVCCL, LACT3, TROPN #### [facility] [address] [place] [address] #### PCAL #### [address] Platelets (Bld) [#/Vol] 235 10*3/uL Normal 140-440 [facility] Comment on above: Performed By: #### H EMDF, CK3, ETOH4, ACET4, SAL33, CMP3, CVCCL, LACT3, TROPN #### [facility] [address] [place] [address] #### PCAL #### [address] [address] RBC (Bld) [#/Vol] 4.95 10*6/uL Normal 4.40-5.90 [facility] Comment on above: Performed By: #### H EMDF, CK3, ETOH4, ACET4, SAL33, CMP3, CVCCL, LACT3, TROPN #### [address] [place] [address] #### PCAL #### [address] WBC (Bld) [#/Vol] 7.1 10*3/uL Normal 3.6-10.7 [facility] Comment on above: Performed By: #### H EMDF, CK3, ETOH4, ACET4, SAL33, CMP3, CVCCL, LACT3, TROPN #### [address] [place] [address] #### PCAL #### [address] [address] Lactic Acidon 11-20-2020 Lactate [Moles/Vol] 1.5 mmol/L Normal 0.7-2.0 [facility] Comment on above: Performed By: #### H EMDF, CK3, ETOH4, ACET4, SAL33, CMP3, CVCCL, LACT3, TROPN #### [address] [place] [address] #### PCAL #### [address] Lactic Acid, PlasmaOrdered B y: Edmund Conklin on 11-20-2020 Lactate [Moles/Vol] 1.5 mmol/L 0.7 - 2. 0 mmol/L [facility] Work Phone: Test Performed by [facility], [address] , [address] Work Phone: [phone] [facility] Work Phone: [phone] Panel InformationOrdered By: Edmund Conklin on 11-20-2020 Test Performed by [facility], [address] [place], [place] [address] [facility] Work Phone: [phone] [facility] Work Phone: [phone] Procalcitoninon 11-20-2020 Procalcitonin < 0.02 Normal 0.00-0.09 [facility] Comment on above: Performed By: #### M G3, BMP3, HEMDF #### [facility] [address] [place] [address] Interpretation See Below Normal [facility] Comment on above: Result Comment: PCT <0.50 = Low risk of severe sepsis and/or septic shock. PCT >2.00 = High risk of severe sepsis and/or septic shock. Performed By: #### M G3, BMP3, HEMDF #### [facility] [address] [place] [address] ProcalcitoninOrdered By: Lino Conklin on 11-20-2020 Interpretation See Below [facility] Work Phone: Comment on above: PCT <0.50 = Low risk of severe sepsis and/or septic shock. PCT >2.00 = High risk of severe sepsis and/or septic shock. Procalcitonin <0.02 0.00 - 0.09 ng/mL [facility] Work Phone: [phone] Test Performed by [facility], [address] [place] [address] [facility] Work Phone: [phone] [facility] Work Phone: [phone] Respiratory Panel, Molecular , with COVID-19 (Restricted: peds pts or suitable admitted adults)Ordered By: Edmund Conklin on 11-20-2020 Respiratory Panel Molecular, with COVID NEGATIVE: No targets were detected by the [employer] Upper Respiratory Pathogens PCR Panel. _ Expected Result: Not Detected The [employer] Upper Respiratory Pathogens PCR Panel can detect the following targets: SARS-CoV-2, Adenovirus, Coronavirus 229E, Coronavirus HKU1, Coronavirus NL63, Coronavirus OC43, Human Metapneumovirus, Human Rhinovirus/Enterovirus, Influenza A, Influenza B, Parainfluenza Virus 1, Parainfluenza Virus 2, Parainfluenza Virus 3, Parainfluenza Virus 4, Respiratory Syncytial Virus, Bordetella pertussis, Bordetella parapertussis, Chlamydia pneumoniae, Mycoplasma pneumoniae. Negative results do not preclude SARS-CoV-2 infection and should not be used as the sole basis for treatment or other patient management decisions. This assay was developed by [employer] and distributed under an Emergency Use Authorization (EUA) granted by the [facility] for the qualitative detection of SARS-CoV-2 nucleic acid. Provider and patient fact sheets can be found at https://www.fda.gov/media/ 896634/download and https://www.fda.gov/media/ 404159/download. [facility] Work Phone: Test Performed by [address] [address] [facility] Work Phone: [facility] Work Phone: SARS-CoV-2 (LAB DEPT)on 11-07 SARS-CoV-2 (COVID-19) RNA DYLON+probe Ql (Unsp spec) see below Normal [facility] Comment on above: Result Comment: Not Detected Expected Result: Not Detected _ Isothermal nucleic acid amplification performed on the [employer] Now System by the [facility] Laboratory Negative results do not preclude SARS-CoV-2 infection and should not be used as the sole basis for treatment or other patient management decisions. This assay was developed by [employer] and distributed under an Emergency Use Authorization (EUA) granted by the FDA for the qualitative detection of SARS-CoV-2 nucleic acid. Provider and patient fact sheets can be found at https://www.fda.gov/media/564850/download and https://www.fda.gov/media/904521/download. Performed By: #### M G3, BMP3, HEMDF #### [facility] [address] [place] [address] SalicylateOrdered By: Lissette Conklin on 11-20-2020 Salicylate Lvl <1.0 0.0 - 20.0 mg/dL [facility] Work Phone: [phone] Test Performed by [facility], [address] , [place], [place] [address] [facility] Work Phone: [phone] [facility] Work Phone: [phone] Salicylateson 11-20-2020 Salicylates < 1.0 Normal 0.0-20.0 [employer] Comment on above: Performed By: #### Johnny G3, BMP3, HEMDF #### [employer] [address] [place] [address] TroponinOrdered By: Edmund Conklin on 11-20-2020 Troponin I.cardiac [Mass/Vol] ng/mL 0.000 - 0.034 ng/mL [facility] Work Phone: [phone] Comment on above: . Test Performed by [employer] [facility], [address] , [place] [address] [facility] Work Phone: [phone] [facility] Work Phone: [phone] Troponin Ion 11-20-2020 Troponin I.cardiac [Mass/Vol] ng/mL Normal 0.000-0.034 [facility] Comment on above: Result Comment: . Performed By: #### Johnny [place], BMP3, HEMDF #### [employer] [address] [place] [address] UrinalysisOrdered By: Lissette Conklin on 11-20-2020 Appearance (U) Turbid Abnormal Clear NA [facility] Work Phone: [phone] Comment on above: . Bilirubin Urine Negative Negative mg/dL [facility] Work Phone: Comment on above: . Color (U) YELLOW Lt. Yellow NA [facility] Work Phone: [phone] Comment on above: . Glucose, Ur Normal Normal (<70) mg/dL [facility] Work Phone: [phone] Comment on above: . Interpretation and review of laboratory results Abnormal [facility] Work Phone: [phone] Ql (U) Trace Abnormal Negative mg/dL [facility] Work Phone: [phone] Comment on above: . LEUKOCYTES, UA Negative Negative Amber/uL [facility] Work Phone: [phone] Comment on above: . Nitrite, Urine Negative Negative NA [facility] Work Phone: [phone] Comment on above: . Occult Blood,Urine Negative Negative mg/dL [facility] Work Phone: [phone] Comment on above: . pH (U) 7.0 [pH] [facility] Work Phone: [phone] Comment on above: . Specific [place], Urine 1.015 [facility] Work Phone: [phone] Comment on above: . Total Protein, Urine Negative Negativ e mg/dL [facility] Work Phone: [phone] Comment on above: . Urobilinogen, Urine 3 mg/dL Abnormal Normal (0-1) [facility] Work Phone: [phone] Comment on above: . Test Performed by [facility], [facility] , [address] Work Phone: [phone] [facility] Work Phone: [phone] XR CHEST PORTABLEOrdered By: Edmund Conklin on 11-20-2020 Patient Name: FADI APARICIO Diagnostic Radiology ACCESSION EXAM DATE/TIME PROCEDURE ORDERING PROVIDER [id number] 11/20/2020 12:05 EDT CR Chest Portable MD CONKLIN DOUGALAS R. CPT code 54695 Reason For Exam (CR Chest Portable) failure to thrive Report EXAM TYPE: RADIOLOGIC EXAMINATION, CHEST, SINGLE VIEW FRONTAL (CXR SINGLE VIEW) EXAM DATE AND TIME: 11/20/2020 12:05 PM EDT INDICATION: Respiratory distress COMPARISON: 09/23/2019 TECHNIQUE: A single frontal view of the thorax was obtained and reviewed. Special views: None. IMPRESSION: 1. Lines/Tubes/Devices/Hardwa re: None. Please confirm position/function of devices/catheters clinically. 2. Lungs: No major volume loss. Coarse interstitial prominence. Somewhat greater than seen previously. Consider mild edema superimposed on fibrosis or interstitial infiltrate. 3. Pleura: No significant effusion. No significant pneumothorax. 4. Heart and mediastinum: Limited due to technique. 5. Upper abdomen: No acute process seen. 6. Thorax:No acute bony process Report Dictated on --- Final --- Dictating Physician: MD CORDOVA JOHN Signed Date and Time: 11/20/2020 12:43 pm Signed by: MD CORDOVA JOHN Transcribed Date and Time: 11/20/2020 12:44 [facility] Work Phone: [place], [facility] Incoming Radiology Results From On License Of [facility] - 11/20/2020 12:45 PM EDT Patient Name: FADI ALEXANDRE Diagnostic Radiology ACCESSION EXAM DATE/TIME PROCEDURE ORDERING PROVIDER [id number] 11/20/2020 12:05 EDT CR Chest Portable MD CONKLIN DOUGALAS R. CPT code 80597 Reason For Exam (CR Chest Portable) failure to thrive Report EXAM TYPE: RADIOLOGIC EXAMINATION, CHEST, SINGLE VIEW FRONTAL (CXR SINGLE VIEW) EXAM DATE AND TIME: 11/20/2020 12:05 PM EDT INDICATION: Respiratory distress COMPARISON: 09/23/2019 TECHNIQUE: A single frontal view of the thorax was obtained and reviewed. Special views: None. IMPRESSION: 1. Lines/Tubes/Devices/Hardwa re: None. Please confirm position/function of devices/catheters clinically. 2. Lungs: No major volume loss. Coarse interstitial prominence. Somewhat greater than seen previously. Consider mild edema superimposed on fibrosis or interstitial infiltrate. 3. Pleura: No significant effusion. No significant pneumothorax. 4. Heart and mediastinum: Limited due to technique. 5. Upper abdomen: No acute process seen. 6. Thorax:No acute bony process Report Dictated on --- Final --- Dictating Physician: MD CORDOVA JOHN Signed Date and Time: 11/20/2020 12:43 pm Signed by: MD CORDOVA JOHN Transcribed Date and Time: 11/20/2020 12:44 [facility] Work Phone: [facility] Work Phone: CBCOrdered By: Chris Gilliam on 11-17-2020 Hematocrit (Bld) [Volume fraction] 44.7 % 40.0 - 52.0 % [employer] Work Phone: [phone] Hemoglobin.gastrointes tinal spec 1 Ql (Stl) 15.2 g/dL 13.0 - 18.0 g/dL [facility] Work Phone: [phone] MCH (RBC) [Entitic mass] 31.1 pg 26.0 - 34.0 pg [facility] Work Phone: [phone] MCHC (RBC) [Mass/Vol] 34.0 % 32.0 - 36.0 % [facility] Work Phone: [phone] MCV (RBC) [Entitic vol] 91.4 fL 80.0 - 98.0 fL [facility] Work Phone: 1() Platelet distribution width (Bld) [Ratio] 13.4 % 11.5 - 14.5 % [facility] Work Phone: 1() Platelet mean volume (Bld) [Entitic vol] 8.4 fL 7.4 - 10.4 fL [facility] Work Phone: [phone] Platelets (Bld) [#/Vol] 263 10*3/uL 140 - 440 10*3/uL [facility] Work Phone: [phone] RBC (Bld) [#/Vol] 4.89 10*6/uL 4.40 - 5.9 0 10*6/uL [facility] Work Phone: [phone] WBC (Bld) [#/Vol] 8.9 10*3/uL 3.6 - 10.7 10*3/uL [facility] Work Phone: [phone] Test Performed by [facility], [address] , [place], [place] [address] [facility] Work Phone: [phone] [facility] Work Phone: [phone] Comp Metabolic Panelon 11-17 ALP [Catalytic activity/Vol] 48 U/L Normal 38-126 [facility] Comment on above: Performed By: #### M G3, BMP3, HEMDF #### [facility] [address] [place] [address] ALT [Catalytic activity/Vol] 12 U/L Normal 0-49 [facility] Comment on above: Result Comment: The ALT test is performed by an updated assay method. Please note that the reference intervals have been changed and are now sex specific. Performed By: #### M G3, BMP3, HEMDF #### [facility] [address] [place] [address] Anion gap [Moles/Vol] 6 mmol/L Normal 3-13 [facility] Comment on above: Performed By: #### M G3, BMP3, HEMDF #### [facility] [address] [place] [address] AST [Catalytic activity/Vol] 16 U/L Normal 15-46 [facility] Comment on above: Performed By: #### M G3, BMP3, HEMDF #### [facility] [address] [place] [address] Bilirubin [Mass/Vol] 0.2 mg/dL Normal 0.2-1.3 [facility] Comment on above: Performed By: #### Johnny G3, BMP3, HEMDF #### [facility] [address] [place] [address] Calcium [Mass/Vol] 10.2 mg/dL Normal 8.4-10.4 [facility] Comment on above: Performed By: #### M G3, BMP3, HEMDF #### [facility] [address] [place] [address] CO2 [Moles/Vol] 24 mmol/L Normal 22-30 [facility] Comment on above: Performed By: #### M G3, BMP3, HEMDF #### [facility] [address] [place] [address] Creatinine [Mass/Vol] 0.58 mg/dL Normal 0.52-1.25 [facility] Comment on above: Performed By: #### Johnny G3, BMP3, HEMDF #### [facility] [address] [place] [address] eGFR OTHER > 90.0 Normal >60 [facility] Comment on above: Result Comment: KDIG O guidelines provide the following GFR categories: Stage GFR(ml/min/1.73 m2) Terms G1 >=90 Normal or high G2 60-89 Mildly decreased* G3a 45-59 Mildly to moderately decreased G3b 30-44 Moderately to severely decreased G4 15-29 Severely decreased G5 <15 Kidney failure *Relative to young adult level. In the absence of evidence of kidney damage, neither GFR category G1 nor G2 fulfill the criteria for CKD. The CKD-EPI equation is validated in individuals 18 years of age and older. Currently the best equation for estimating glomerular filtration rate (GFR) from serum creatinine in children is the Bedside Chakraborty equation. It is less accurate in patients with extremes of muscle mass, restriction of dietary protein, ingestion of creatine, extra-renal metabolism of creatinine, or treatment with medications that affect renal tubular creatinine secretion. Performed By: #### M G3, BMP3, HEMDF #### [facility] [address] [place] [address] GFR/1.73 sq M.predicted among blacks MDRD (S/P/Bld) [Vol rate/Area] mL/min/{1.73_m2} Normal >60 [facility] Comment on above: Performed By: #### Johnny G3, BMP3, HEMDF #### [facility] [address] [place] [address] Glucose [Mass/Vol] 98 mg/dL Normal 70-100 [facility] Comment on above: Performed By: #### Johnny G3, BMP3, HEMDF #### [facility] [address] [place] [address] Protein [Mass/Vol] 6.2 g/dL Low 6.3-8.2 [facility] Comment on above: Performed By: #### Johnny G3, BMP3, HEMDF #### [facility] [address] [place] [address] Urea nitrogen [Mass/Vol] 13 mg/dL Normal 7-17 [facility] Comment on above: Performed By: #### M G3, BMP3, HEMDF #### [facility] [address] [place] [address] Albumin [Mass/Vol] 3.8 g/dL Normal 3.5-5.0 [facility] Comment on above: Performed By: #### Johnny G3, BMP3, HEMDF #### [facility] [address] [place] [address] Chloride [Moles/Vol] 109 mmol/L High 98-107 [facility] Comment on above: Performed By: #### M G3, BMP3, HEMDF #### [facility] [address] [place] [address] Potassium [Moles/Vol] 3.9 mmol/L Normal 3.5-5.1 [facility] Comment on above: Performed By: #### M G3, BMP3, HEMDF #### [facility] [address] [place] [address] Sodium [Moles/Vol] 139 mmol/L Normal 135-145 [facility] Comment on above: Performed By: #### M G3, BMP3, HEMDF #### [facility] [address] [place] [address] Comprehensive Metabolic Pane lOrdered By: Chris Gilliam on 11-17-2020 Albumin [Mass/Vol] 3.8 g/dL 3.5 - 5.0 g/dL [facility] Work Phone: [phone] ALP (Bld) [Catalytic activity/Vol] 48 U/L 38 - 126 U/L [facility] Work Phone: [phone] ALT [Catalytic activity/Vol] 12 U/L 0 - 49 U/L [facility] Work Phone: [phone] Comment on above: The ALT test is perf ormed by an updated assay method. Please note that the reference intervals have been changed and are now sex specific. Anion gap [Moles/Vol] 6 mmol/L 3 - 13 mmol/L [facility] Work Phone: [phone] AST [Catalytic activity/Vol] 16 U/L 15 - 46 U/L [facility] Work Phone: [phone] Bilirubin [Mass/Vol] 0.2 mg/dL 0.2 - 1 .3 mg/dL [facility] Work Phone: [phone] Calcium [Mass/Vol] 10.2 mg/dL 8.4 - 10. 4 mg/dL [facility] Work Phone: [phone] Chloride [Moles/Vol] 109 mmol/L High 98 - 10 7 mmol/L [facility] Work Phone: [phone] CO2 [Moles/Vol] 24 mmol/L 22 - 30 mmol/L [facility] Work Phone: Creatinine [Mass/Vol] 0.58 mg/dL 0.52 - 1.25 mg/dL [facility] Work Phone: EGFR IF NonAfrican Bahamian >90.0 >60 mL/min [facility] Work Phone: Comment on above: KDIGO guidelines pro vide the following GFR categories: Stage GFR(ml/min/1.73 m2) Terms G1 >=90 Normal or high G2 60-89 Mildly decreased* G3a 45-59 Mildly to moderately decreased G3b 30-44 Moderately to severely decreased G4 15-29 Severely decreased G5 <15 Kidney failure *Relative to young adult level. In the absence of evidence of kidney damage, neither GFR category G1 nor G2 fulfill the criteria for CKD. The CKD-EPI equation is validated in individuals 18 years of age and older. Currently the best equation for estimating glomerular filtration rate (GFR) from serum creatinine in children is the Bedside Chakraborty equation. It is less accurate in patients with extremes of muscle mass, restriction of dietary protein, ingestion of creatine, extra-renal metabolism of creatinine, or treatment with medications that affect renal tubular creatinine secretion. Free PSA/Total PSA [Mass fraction] 6.2 g/dL Low 6.3 - 8.2 g/dL [facility] Work Phone: GFR/1.73 sq M.predicted among blacks MDRD (S/P/Bld) [Vol rate/Area] mL/min/{1.73_m2} >60 mL/min [facility] Work Phone: Glucose [Mass/Vol] 98 mg/dL 70 - 100 mg/dL [facility] Work Phone: Interpretation and review of laboratory results Abnormal [facility] Work Phone: Potassium [Moles/Vol] 3.9 mmol/L 3.5 - 5.1 mmol/L [facility] Work Phone: Sodium [Moles/Vol] 139 mmol/L 135 - 145 mmol/L [facility] Work Phone: [phone] Urea nitrogen (BldV) [Mass/Vol] 13 mg/dL 7 - 17 mg/dL [facility] Work Phone: Test Performed by [facility], [address] , [place], [place] [address] [facility] Work Phone: [phone] [facility] Work Phone: [phone] Ferritinon 11-17-2020 Ferritin [Mass/Vol] 165 ng/mL Normal 18-464 [facility] Comment on above: Performed By: #### M G3, BMP3, HEMDF #### [employer] [facility] [address] [place] [address] FerritinOrdered By: Chris Gilliam on 11-17-2020 Ferritin [Mass/Vol] 165 ng/mL 18 - 464 ng/mL [facility] Work Phone: [phone] Test Performed by [facility], [address] , [place], [place] [address] [facility] Work Phone: [phone] [facility] Work Phone: [phone] Hemoglobin A1Con 11-17-2020 Glucose [Mass/Vol] 108 mg/dL Normal [facility] Comment on above: Performed By: #### Johnny G3, BMP3, HEMDF #### [employer] [facility] [address] [place] [address] HbA1c (Bld) [Mass fraction] 5.4 % Normal [facility] Comment on above: Result Comment: Norm al less than 5.7% Prediabetes 5.7% to 6.4% Diabetes 6.5% or higher --HgbA1C levels may not be accurate in patients who have renal disease, received recent blood transfusions, are anemic, or who have dyshemoglobinemia. Performed By: #### Johnny G3, BMP3, HEMDF #### [facility] [address] [place] [address] Hemoglobin [id number] By: Jeri Gilliam on 11-17-2020 eAG 108 mg/dL [facility] Work Phone: [phone] HbA1c (Bld) [Mass fraction] 5.4 % [facility] Work Phone: [phone] Comment on above: Normal less than 5.7 % Prediabetes 5.7% to 6.4% Diabetes 6.5% or higher --HgbA1C levels may not be accurate in patients who have renal disease, received recent blood transfusions, are anemic, or who have dyshemoglobinemia. Test Performed by [facility], [address] , [place], [place] [address] [facility] Work Phone: [facility] Work Phone: Hemogramon 11-17-2020 Erythrocyte distribution width (RBC) [Ratio] 13.4 % Normal 11.5-14.5 [facility] Comment on above: Performed By: #### Johnny G3, BMP3, HEMDF #### [facility] [address] [place] [address] Hematocrit (Bld) [Volume fraction] 44.7 % Normal 40.0-52.0 [facility] Comment on above: Performed By: #### Johnny G3, BMP3, HEMDF #### [facility] [address] [place] [address] Hemoglobin (Bld) [Mass/Vol] 15.2 g/dL Normal 13.0-18.0 [facility] Comment on above: Performed By: #### Johnny G3, BMP3, HEMDF #### [facility] [address] [place] [address] MCH (RBC) [Entitic mass] 31.1 pg Normal 26.0-34.0 [facility] Comment on above: Performed By: #### Johnny G3, BMP3, HEMDF #### [facility] [address] [place] [address] MCHC 34.0 % Normal 32.0-36.0 [facility] Comment on above: Performed By: #### Johnny G3, BMP3, HEMDF #### [facility] [address] [place] [address] MCV (RBC) [Entitic vol] 91.4 fL Normal 80.0-98.0 [facility] Comment on above: Performed By: #### Johnny G3, BMP3, HEMDF #### [facility] [address] [place] [address] Platelet mean volume (Bld) [Entitic vol] 8.4 fL Normal 7.4-10.4 [facility] Comment on above: Performed By: #### Johnny G3, BMP3, HEMDF #### [facility] [address] [place] [address] Platelets (Bld) [#/Vol] 263 10*3/uL Normal 140-440 [facility] Comment on above: Performed By: #### M G3, BMP3, HEMDF #### [facility] [address] [place] [address] RBC (Bld) [#/Vol] 4.89 10*6/uL Normal 4.40-5.90 [facility] Comment on above: Performed By: #### M G3, BMP3, HEMDF #### [facility] [address] [place] [address] WBC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 [#/Vol] 13.8 10*3/uL High 3.6 - 10.7 10*3/uL [place] CKon 07-23-2019 Total CK 364 U/L High 30 - 170 U/L [place] Comprehensive Metabolic Pane jackson 07-23-2019 Albumin [Mass/Vol] 4.1 g/dL 3.5 - 5 g/dL [place] ALP [Catalytic activity/Vol] 50 U/L 38 - 126 U/L [place] ALT [Catalytic activity/Vol] 15 U/L 0 - 49 U/L [place] Comment on above: The ALT test is perf ormed by an updated assay method. Please note that the reference intervals have been changed and are now sex specific. Anion gap [Moles/Vol] 11 mmol/L [place] AST [Catalytic activity/Vol] 27 U/L 15 - 46 U/L [place] Bilirubin Ql (U) 0.4 mg/dL 0.2 - 1.3 mg/dL [place] Calcium [Mass/Vol] 9.7 mg/dL 8.4 - 10. 4 mg/dL [place] Chloride [Moles/Vol] 104 mmol/L 98 - 10 7 mmol/L [place] CO2 [Moles/Vol] 21 mmol/L Low 22 - 30 mmol/L [place] Creatinine [Mass/Vol] 0.64 mg/dL 0.52 - 1.25 mg/dL [place] EGFR IF NonAfrican [place] >90.0 >60 mL/min [place] Comment on above: KDIGO guidelines pro vide the following GFR categories: Stage GFR(ml/min/1.73 m2) Terms G1 >=90 Normal or high G2 60-89 Mildly decreased* G3a 45-59 Mildly to moderately decreased G3b 30-44 Moderately to severely decreased G4 15-29 Severely decreased G5 <15 Kidney failure *Relative to young adult level. In the absence of evidence of kidney damage, neither GFR category G1 nor G2 fulfill the criteria for CKD. The CKD-EPI equation is validated in individuals 18 years of age and older. Currently the best equation for estimating glomerular filtration rate (GFR) from serum creatinine in children is the Bedside Chakraborty equation. It is less accurate in patients with extremes of muscle mass, restriction of dietary protein, ingestion of creatine, extra-renal metabolism of creatinine, or treatment with medications that affect renal tubular creatinine secretion. GFR/1.73 sq M predicted among blacks MDRD (S/P/Bld) [Vol rate/Area] mL/min/{1.73_m2} >60 mL/min [place] Glucose [Mass/Vol] 104 mg/dL High 70 - 100 mg/dL [place] Potassium [Moles/Vol] 3.7 mmol/L 3.5 - 5.1 mmol/L [place] Protein [Mass/Vol] 6.9 g/dL 6.3 - 8.2 g/dL [place] Sodium [Moles/Vol] 136 mmol/L 135 - 145 mmol/L [place] Urea nitrogen [Mass/Vol] 12 mg/dL 7 - 20 mg/dL [place] Ethanolon 07-23-2019 Ethanol Lvl <0.010 0 - 0.01 g/dL [place] Comment on above: NOTE: This result is for medical treatment only. Analysis performed using non-forensic procedures. Otheron 07-23-2019 Test Performed by [facility], [address] , [address] Interpretation and review of laboratory results Abnormal [place] Test Performed by [facility], [address] , [address] Salicylateon 07-23-2019 Salicylate Lvl <1.0 0 - 20 mg/dL [facility], [place] CULTURE URINEon 06-24-2019 CULTURE URINE CULTURE URINE --> St atus: F Normal urogenital andrea present. Normal [facility] Comment on above: Order Comment: Speci men Source Comment:Urine, clean catch Performed By: #### C /UR #### [address] [place] [address] Otheron 06-24-2019 Test Performed by [facility], [facility] [place] [address] Specimen Source Comment:Urine, clean catch [place] Urinalysison 06-24-2019 Bacteria identified Cx Nom (U) Normal urogenital andrea present. [place] Complete Urinalysison 2019 Amorphous Urates Loaded (>100) Abnormal Negative [facility] Comment on above: Result Comment: . Performed By: #### C UA2 #### [address] [address] Bacteria LM.HPF (Urine sed) [#/Area] Present Abnormal Negative [facility] Comment on above: Result Comment: . Performed By: #### C UA2 #### [address] [address] Cast, Granular Present Normal Negative [facility] Comment on above: Result Comment: . Performed By: #### C UA2 #### [address] [address] Appearance (U) Cloudy Abnormal Clear [facility] Comment on above: Result Comment: . Performed By: #### C UA2 #### [address] [address] Color (U) Dark-Yellow Abnormal Lt. Yellow [facility] Comment on above: Result Comment: . Performed By: #### C UA2 #### [address] [address] Bilirubin,Urine Negative Normal Negative [facility] Comment on above: Result Comment: . Performed By: #### C UA2 #### [address] [address] Glucose Ql (U) Normal Normal Normal (<70) [facility] Comment on above: Result Comment: . Performed By: #### C UA2 #### [address] [address] Ketone,Urine Trace Abnormal Negative [facility] Comment on above: Result Comment: . Performed By: #### C UA2 #### [address] [address] Leukocytes,Urine Negative Normal Negative [facility] Comment on above: Result Comment: . Performed By: #### C UA2 #### [address] [address] Nitrites,Urine Negative Normal Negative [facility] Comment on above: Result Comment: . Performed By: #### C UA2 #### [address] [address] Occult Blood,Urine 0.03 mg/dL Abnormal Negative [facility] Comment on above: Result Comment: . Performed By: #### C UA2 #### [address] [address] pH (U) 6.5 Normal 5.0-8.0 [facility] Comment on above: Result Comment: . Performed By: #### C UA2 #### [address] [address] Protein (U) [Mass/Vol] Negative Normal Negative [facility] Comment on above: Result Comment: . Performed By: #### C UA2 #### [address] [address] Specific [place],Urine 1.020 Normal 1.005 - 1.030 [facility] Comment on above: Result Comment: . Performed By: #### C UA2 #### [address] [address] Urobilinogen,Urine Normal Normal Normal (0-1) [facility] Comment on above: Result Comment: . 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1970 Requested By: JUAN GRAVES Order Number: [id number] Reading MD: Lilia Olivas Measurements Intervals [place] Rate: 73 P: 26 [place]: 148 QRS: 13 QRSD: 96 T: 65 QT: 384 QTc: 424 Interpretive Statements SINUS RHYTHM Compared to ECG 05/24/2014 23:11:33 No significant changes Electronically Signed On 06-23-2019 8:48:54 EDT by [facility] Test Date: 2019-06-20 Pat Name: Fadi Alexandre Department: Room: 100 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 Bacteria, UA Present Abnormal Negative /[HPF] [place] Comment on above: . Bilirubin Urine Negative Negative mg/dL [place] Comment on above: . Glucose, Ur Normal Normal (<70) mg/dL [place] Comment on above: . Granular Casts, UA Present Negative /[LPF] [place] Comment on above: . Interpretation and review of laboratory results Abnormal [place] LEUKOCYTES, UA Negative Negative Amber/uL [place] Comment on above: . Nitrite, Urine Negative Negative NA [place] Comment on above: . Occult Blood,Urine 0.03 mg/dL Abnormal Negative [place] Comment on above: . pH (U) 6.5 [pH] [place] Comment on above: . Specific [place], Urine 1.020 [place] Comment on above: . Urobilinogen, Urine Normal Normal (0-1) mg/dL [place] Comment on above: . Test Performed by [address] [address] [place] Urinalysison 06-23-2019 Appearance (U) Cloudy Abnormal Clear NA [place] Comment on above: . Color (U) Dark-Yellow Abnormal Lt. Yellow NA [place] Comment on above: . Ketones Ql (U) Trace Abnormal Negative mg/dL [place] Comment on above: . Protein (U) [Mass/Vol] Negative Negat susan mg/dL [place] Comment on above: . CKon 06-20-2019 Total CK 140 U/L 30 - 170 U/L [place] Comprehensive Metabolic Pane jackson 06-20-2019 Albumin [Mass/Vol] 4.2 g/dL 3.5 - 5 g/dL [place] ALP [Catalytic activity/Vol] 46 U/L 38 - 126 U/L [place] ALT [Catalytic activity/Vol] 21 U/L 0 - 49 U/L [place] Comment on above: The ALT test is perf ormed by an updated assay method. Please note that the reference intervals have been changed and are now sex specific. Anion gap [Moles/Vol] 13 mmol/L [place] AST [Catalytic activity/Vol] 27 U/L 15 - 46 U/L [place] Bilirubin Ql (U) 0.3 mg/dL 0.2 - 1.3 mg/dL [place] Calcium [Mass/Vol] 9.8 mg/dL 8.4 - 10. 4 mg/dL [place] Chloride [Moles/Vol] 97 mmol/L Low 98 - 10 7 mmol/L [place] CO2 [Moles/Vol] 27 mmol/L 22 - 30 mmol/L [place] Creatinine [Mass/Vol] 0.75 mg/dL 0.52 - 1.25 mg/dL [place] EGFR IF NonAfrican [place]amian >90.0 >60 mL/min [place] Comment on above: KDIGO guidelines pro vide the following GFR categories: Stage GFR(ml/min/1.73 m2) Terms G1 >=90 Normal or high G2 60-89 Mildly decreased* G3a 45-59 Mildly to moderately decreased G3b 30-44 Moderately to severely decreased G4 15-29 Severely decreased G5 <15 Kidney failure *Relative to young adult level. In the absence of evidence of kidney damage, neither GFR category G1 nor G2 fulfill the criteria for CKD. The CKD-EPI equation is validated in individuals 18 years of age and older. Currently the best equation for estimating glomerular filtration rate (GFR) from serum creatinine in children is the Bedside Chakrabotry equation. It is less accurate in patients with extremes of muscle mass, restriction of dietary protein, ingestion of creatine, extra-renal metabolism of creatinine, or treatment with medications that affect renal tubular creatinine secretion. GFR/1.73 sq M predicted among blacks MDRD (S/P/Bld) [Vol rate/Area] mL/min/{1.73_m2} >60 mL/min [place] Glucose [Mass/Vol] 143 mg/dL High 70 - 100 mg/dL [place] Interpretation and review of laboratory results Abnormal [place] Potassium [Moles/Vol] 3.4 mmol/L Low 3.5 - 5.1 mmol/L [place] Protein [Mass/Vol] 6.7 g/dL 6.3 - 8.2 g/dL [place] Sodium [Moles/Vol] 137 mmol/L 135 - 145 mmol/L [place] Urea nitrogen [Mass/Vol] 10 mg/dL 7 - 20 mg/dL [place] Ethanolon 06-20-2019 Ethanol Lvl <0.010 0 - 0.01 g/dL [place] Comment on above: NOTE: This result is for medical treatment only. Analysis performed using non-forensic procedures. Hemogram (CBC) w/Auto Diffon 06-20-2019 Absolute Baso # 0.1 10*3/uL 0 - 0.2 10*3/uL [place] Absolute Neut # 5.5 10*3/uL 1.8 - 7 10*3/uL [place] Basophils/100 WBC (Bld) 1.1 % 0 - 2 % [place] Eosinophils (Bld) [#/Vol] 0.2 10*3/uL 0 - 0.5 10*3/uL [place] Eosinophils/100 WBC (Bld) 2.8 % 1 - 6 % [place] Erythrocyte distribution width (RBC) [Ratio] 14.0 % 11.5 - 14.5 % [place] Granulocytes/100 WBC (Bld) 62.3 % 40 - 80 % [place] Hematocrit (Bld) [Volume fraction] 44.7 % 40 - 52 % [place] Hemoglobin (Bld) [Mass/Vol] 15.6 g/dL 13 - 18 g/dL [place] Lymphocytes (Bld) [#/Vol] 2.2 10*3/uL 1 - 4.3 10*3/uL [place] Lymphocytes/100 WBC (Bld) 25.7 % 20 - 40 % [place] MCH (RBC) [Entitic mass] 31.8 pg 26 - 34 pg [place] MCHC (RBC) [Mass/Vol] 34.9 % 32 - 36 % [place] MCV (RBC) [Entitic vol] 91.1 fL 80 - 98 fL [place] Monocytes (Bld) [#/Vol] 0.7 10*3/uL 0 - 0.8 10*3/uL [place] Monocytes/100 WBC (Bld) 8.1 % 2 - 10 % [place] Platelet mean volume (Bld) [Entitic vol] 8.4 fL 7.4 - 10.4 fL [place] Platelets (Bld) [#/Vol] 228 10*3/uL 140 - 440 10*3/uL [facility] [place], [place] RBC (Bld) [#/Vol] 4.91 10*6/uL 4.4 - 5.9 10*6/uL [facility], [place] WBC (Bld) [#/Vol] 8.7 10*3/uL 3.6 - 10.7 10*3/uL [facility], [place] Test Performed by [facility], [address] , [address], [place] Otheron 06-20-2019 Amphetamines, urine Negative [facility], [place] Barbiturates, Ur Negative [facility] [place], [place] Benzodiazepine Ur Qual Negative [facility] [place], [place] Cocaine Metabolites, Ur Negative [place] Methadone, Urine Negative [facility] [place], [place] Opiates, Urine Negative [facility] [place], [place] Oxycodone Screen, Ur Negative [facility], [place] PCP, Urine Negative [facility] [place], [place] Comment on above: The expected value f or all of the drugs listed above is Negative. The following drugs or drug groups have been screened for by Immunoassay at the following thresholds: Amphetamine class (1000 ng/mL), Barbiturates (200 ng/mL), Benzodiazepines (200 ng/mL), Cocaine (300 ng/mL), Methadone (300 ng/mL), Opiates (300 ng/mL), Oxycodone (100 ng/mL), and PCP (25 ng/mL). NOTE: These results are for medical treatment only. Analysis performed using non-forensic procedures. POSITIVE results are NOT confirmed by a more specific alternative method unless requested. If confirmation is needed, request confirmation under separate order. Test Performed by [facility], [address] , [address] Interpretation and review of laboratory results Abnormal [place] Valproic Acid Lvl <10 Low 50 - 120 ug/mL [place] Test Performed by [facility], [address], [place], [place] [id number] [place] [address] Lipase [Catalytic activity/Vol] 32 U/L 23 - 300 U/L [place] Test Performed by [facility], [address] , [place] [id number] [facility], [place] Cardiacon 04-23-2019 Cholesterol [Mass/Vol] 161 mg/dL <200 [place], [place] Cholesterol in HDL [Mass/Vol] 40 mg/dL 40 - 60 mg/dL [place] Cholesterol in LDL [Mass/Vol] 105 mg/dL Abnormal <100 [place] Triglyceride [Mass/Vol] 82 mg/dL <150 [place] Hemoglobin A1Con 04-23-2019 HbA1c (Bld) [Mass fraction] 108 mg/dL Normal [facility] Comment on above: Performed By: #### L IPD2, HA1C2 #### [facility] [address] [place], [place] HbA1c (Bld) [Mass fraction] 5.4 % Normal 4.0-5.7 [facility] Comment on above: Result Comment: --Hg bA1C levels may not be accurate in patients who have renal disease, received recent blood transfusions, are anemic, or who have dyshemoglobinemia. Performed By: #### L IPD2, HA1C2 #### [facility] [address], [place] Lipid Panelon 04-23-2019 Cholesterol [Mass/Vol] 161 mg/dL Normal < 200 [facility] Comment on above: Performed By: #### L IPD2, HA1C2 #### [facility] [address] [place], [place] Cholesterol in HDL [Mass/Vol] 40 mg/dL Normal 40-60 [facility] Comment on above: Performed By: #### L IPD2, HA1C2 #### [facility] [address] [place], [place] Cholesterol.total/Chol esterol in HDL [Mass ratio] 4 Normal [facility] Comment on above: Result Comment: Ref Range: < 3 Low Risk for CHD 3-6 Mod Risk for CHD > 6 High Risk for CHD Performed By: #### L IPD2, HA1C2 #### [facility] [address] [place] [address] Protein [Mass/Vol] 105 mg/dL Abnormal <100 [facility] Comment on above: Performed By: #### L IPD2, HA1C2 #### [facility] [address] [place] [address] Triglyceride [Mass/Vol] 82 mg/dL Normal <150 [facility] Comment on above: Performed By: #### L IPD2, HA1C2 #### [facility] [address] [place] [address] Metabolic Panelon 04-23-2019 HbA1c (Bld) [Mass fraction] 5.4 % 4 - 5.7 % [place] Comment on above: --HgbA1C levels may not be accurate in patients who have renal disease, received recent blood transfusions, are anemic, or who have dyshemoglobinemia. Otheron 04-23-2019 Cholesterol.total/Chol esterol in HDL [Mass ratio] 4 {ratio} [place] Comment on above: Ref Range: < 3 Low Risk for CHD 3-6 Mod Risk for CHD > 6 High Risk for CHD Interpretation and review of laboratory results Abnormal [place] Test Performed by [address] [address] [place] eAG 108 mg/dL [place] Test Performed by [id number] [place] [address] Ethanolon 04-19-2019 Ethanol Lvl <0.010 0 - 0.01 g/dL [place] Comment on above: NOTE: This result is for medical treatment only. Analysis performed using non-forensic procedures. Hemogram (CBC) w/Auto Diffon 04-19-2019 Absolute Baso # 0.1 10*3/uL 0 - 0.2 10*3/uL [place] Absolute Neut # 6.8 10*3/uL 1.8 - 7 10*3/uL [place] Basophils/100 WBC (Bld) 0.7 % 0 - 2 % [place] Eosinophils (Bld) [#/Vol] 0.0 10*3/uL 0 - 0.5 10*3/uL [place] Eosinophils/100 WBC (Bld) 0.2 % Low 1 - 6 % [place] Erythrocyte distribution width (RBC) [Ratio] 13.8 % 11.5 - 14.5 % [place] Granulocytes/100 WBC (Bld) 79.1 % 40 - 80 % [place] Hematocrit (Bld) [Volume fraction] 44.6 % 40 - 52 % [place] Hemoglobin (Bld) [Mass/Vol] 15.3 g/dL 13 - 18 g/dL [place] Interpretation and review of laboratory results Abnormal [place] Lymphocytes (Bld) [#/Vol] 1.3 10*3/uL 1 - 4.3 10*3/uL [place] Lymphocytes/100 WBC (Bld) 14.7 % Low 20 - 40 % [place] MCH (RBC) [Entitic mass] 30.6 pg 26 - 34 pg [place] MCHC (RBC) [Mass/Vol] 34.3 % 32 - 36 % [place] MCV (RBC) [Entitic vol] 89.2 fL 80 - 98 fL [place] Monocytes (Bld) [#/Vol] 0.5 10*3/uL 0 - 0.8 10*3/uL [place] Monocytes/100 WBC (Bld) 5.3 % 2 - 10 % [place] Platelet mean volume (Bld) [Entitic vol] 8.7 fL 7.4 - 10.4 fL [place] Platelets (Bld) [#/Vol] 249 10*3/uL 140 - 440 10*3/uL [place] RBC (Bld) [#/Vol] 5.00 10*6/uL 4.4 - 5.9 10*6/uL [place] WBC (Bld) [#/Vol] 8.6 10*3/uL 3.6 - 10.7 10*3/uL [place] Test Performed by [facility], [facility] [address] , [address] Lipaseon 04-19-2019 Lipase [Catalytic activity/Vol] 31 U/L 23 - 300 U/L [place] Metabolic Panelon 04-19-2019 Albumin [Mass/Vol] 4.4 g/dL 3.5 - 5 g/dL [place] ALP [Catalytic activity/Vol] 46 U/L 38 - 126 U/L [place] ALT [Catalytic activity/Vol] 17 U/L 0 - 49 U/L [place] Comment on above: The ALT test will be performed by an updated assay method starting April 18 at 09:00am. Please note that the reference intervals will be changed to be sex specific. Anion gap [Moles/Vol] 9 mmol/L [place] AST [Catalytic activity/Vol] 25 U/L 15 - 46 U/L [place] Bilirubin.direct [Mass/Vol] 0.0 mg/dL 0 - 0.3 mg/dL [place] Calcium [Mass/Vol] 9.3 mg/dL 8.4 - 10. 4 mg/dL [place] Chloride [Moles/Vol] 101 mmol/L 98 - 10 7 mmol/L [place] CO2 [Moles/Vol] 26 mmol/L 22 - 30 mmol/L [place] Creatinine [Mass/Vol] 0.7 mg/dL 0.52 - 1.25 mg/dL [place] GFR/1.73 sq M predicted among blacks MDRD (S/P/Bld) [Vol rate/Area] mL/min/{1.73_m2} >60 mL/min [place] Glucose [Mass/Vol] 126 mg/dL High 70 - 100 mg/dL [place] Potassium [Moles/Vol] 3.5 mmol/L 3.5 - 5.1 mmol/L [place] Protein [Mass/Vol] 6.9 g/dL 6.3 - 8.2 g/dL [place] Sodium [Moles/Vol] 135 mmol/L 135 - 145 mmol/L [place] Urea nitrogen [Mass/Vol] 14 mg/dL 7 - 20 mg/dL [place] Otheron 04-19-2019 Bilirubin Ql (U) 0.3 mg/dL 0.2 - 1.3 mg/dL [place] EGFR IF NonAfrican [place]ian >60.0 >60 mL/min [place] Comment on above: Source- MDRD equatio n with creatinine calibration to IDMS(NKDEP) eGFR not recommended for drug dose adjustment Interpretation and review of laboratory results Abnormal [place] Test Performed by [facility], [address] , [address] Urine Drug Screenon 04-19-19 20 Amphetamines, urine Negative [facility], [place] Barbiturates, Ur Negative [facility], [place] Benzodiazepine Ur Qual Negative [facility], [place] Cocaine Metabolites, Ur Negative [facility], [place] Methadone, Urine Negative [facility], [place] Opiates, Urine Negative [facility], [place] Oxycodone Screen, Ur Negative [facility], [place] PCP, Urine Negative [facility], [place] Comment on above: The expected value f or all of the drugs listed above is Negative. The following drugs or drug groups have been screened for by Immunoassay at the following thresholds: Amphetamine class (1000 ng/mL), Barbiturates (200 ng/mL), Benzodiazepines (200 ng/mL), Cocaine (300 ng/mL), Methadone (300 ng/mL), Opiates (300 ng/mL), Oxycodone (100 ng/mL), and PCP (25 ng/mL). NOTE: These results are for medical treatment only. Analysis performed using non-forensic procedures. POSITIVE results are NOT confirmed by a more specific alternative method unless requested. If confirmation is needed, request confirmation under separate order. Test Performed by [employer] [facility], [address] , [address] Miscellaneous Lab Procedureo n 03-22-2018 [facility] [place] Normal [facility] Comment on above: Order Comment: Comme nts: [id number] DRUGS OF ABUSE PANEL- 9Test(s) Ordered: [id number] DRUGS OF ABUSE PANEL- 9 Result Comment: [phone] 6+OXYCODONE-BUND (ng/mL) DRUG RESULT SCREEN CUTOFF ____ Amphetamines,Urine Negative ng/mL 1000 Amphetamine test includes Amphetamine and Methamphetamine. Barbiturates Negative ng/mL 200 Benzodiazepines POSITIVE ng/mL 100 Please Note; Confirmation performed by [employer] Nordiazepam Negative Oxazepam Negative Flurazepam Negative Lorazepam Negative Alprazolam Positive Alprazolam Confirm 218 ng/mL 100 Clonazepam Negative Temazepam Negative Triazolam Negative Midazolam Negative Cannabinoid Positive ng/mL 20 Carboxy THC GC/MS Conf >300 ng/mL 15 Cocaine (Metab) Negative ng/mL 300 Opiates Negative ng/mL 300 Opiates test includes Codeine, Morphine, Hydromorphone, Hydrocodone. Oxycodone/Oxymorphone,Urine Negative ng/mL 300 Test includes Oxydodone and Oxymorphone. TESTING PERFORMED AT [facility]. ORIGINAL REPORT ON FILE IN LAB CONTAINS ADDITIONAL TEST SITE INFORMATION. Performed By: #### L 500.2500 #### [facility] [address] [place], [place], [id number] Heavy Metals, Urineon 2018 ARSENIC INORG,[facility] Comment on above: Result Comment: Resu lt: None Detected This test was developed and its performance characteristics determined by [facility]. It has not been cleared or approved by the Food and Drug Administration. Environmental Exposure: 0-19 Occupational Exposure: 35 Detection Limit = 10 Performed By: #### L 500.2500 #### [facility] [address] [place], [address] ARSENIC TOTAL,[facility] Comment on above: Result Comment: Resu lt: Negative This test was developed and its performance characteristics determined by [facility]. It has not been cleared or approved by the Food and Drug Administration. Detection Limit = 10 Performed By: #### L 500.2500 #### [facility] [address] [place], [address] LEAD, URINE Normal [facility] Comment on above: Result Comment: Resu lt: None Detected This test was developed and its performance characteristics determined by [facility]. It has not been cleared or approved by the Food and Drug Administration. Detection Limit = 1 Performed By: #### L 500.2500 #### [facility] [address] [place], [address] MERCURY, URINE Normal [facility] Comment on above: Result Comment: Resu lt: None Detected This test was developed and its performance characteristics determined by [facility]. It has not been cleared or approved by the Food and Drug Administration. Detection Limit = 1 Performed at: [address] [id number] Talent Consultant: Jackie Leyva MD, Phone: [phone] Performed By: #### L 500.2500 #### [facility] [place], [address] ARSENIC,UR 24HR Test not performed Normal . [facility] Comment on above: Performed By: #### L 500.2500 #### [facility] [address] [place], [address] ARSENIC:CREAT,U Test not performed Normal . [facility] Comment on above: Performed By: #### L 500.2500 #### [facility] [address] [place], [address] CREATININE,UR 0.70 g/L Normal 0.30-3.00 [facility] Comment on above: Result Comment: Dete ction Limit = 0.10 Performed By: #### L 500.2500 #### [facility] [address] [place], [address] LEAD, UR 24 HR Test not performed Normal . [facility] Comment on above: Performed By: #### L 500.2500 #### [facility] [address] [place], [address] LEAD:CRE URINE Test not performed Normal . [facility] Comment on above: Performed By: #### L 500.2500 #### [facility] [address] [place], [address] MERCURY,UR 24HR Test not performed Normal . [facility] Comment on above: Performed By: #### L 500.2500 #### [facility] [address] [place], [address] MERCURY:CREAT Test not performed Normal . [facility] Comment on above: Performed By: #### L 500.2500 #### [facility] [address] [place], [address] Comprehensive Metabolic Prof ilon 03-14-2018 Albumin mass conc 3.9 g/dL Normal 3.2-5.0 [facility] Comment on above: Order Comment: Comme nts: [id number] DRUGS OF ABUSE PANEL- 9 Performed By: #### L 500.4050, L501.9520 #### [facility] [facility] [address] [place], [address] Albumin/Globulin mass ratio 1.1 {ratio} Normal 0.9-2.4 [facility] Comment on above: Order Comment: Comme nts: [id number] DRUGS OF ABUSE PANEL- 9 Performed By: #### L 500.4050, L501.9520 #### [facility] [address] [place], [address] ALP enzyme act/vol 62 U/L Normal 45-117 [facility] Comment on above: Order Comment: Comme nts: [id number] DRUGS OF ABUSE PANEL- 9 Performed By: #### L 500.4050, L501.9520 #### [facility] [address] [place], [address] ALT enzyme act/vol 19 U/L Normal 16-61 [facility] Comment on above: Order Comment: Comme nts: [id number] DRUGS OF ABUSE PANEL- 9 Performed By: #### L 500.4050, L501.9520 #### [facility] [address] [place], [address] AST enzyme act/vol 8 U/L Low 15-37 [facility] Comment on above: Order Comment: Comme nts: [id number] DRUGS OF ABUSE PANEL- 9 Performed By: #### L 500.4050, L5.20 #### [facility] [address] [place], [address] Bilirubin mass conc 0.30 mg/dL Normal 0.20-1.00 [facility] Comment on above: Order Comment: Comme nts: [id number] DRUGS OF ABUSE PANEL- 9 Performed By: #### L 500.4050, L501.20 #### [facility] [address] [place], [address] Calcium mass conc 9.2 mg/dL Normal 8.5-10.1 [facility] Comment on above: Order Comment: Comme nts: [id number] DRUGS OF ABUSE PANEL- 9 Performed By: #### L 500.4050, L5.20 #### [facility] [address] [place], [address] Chloride molar conc 107 mmol/L Normal 98-107 [facility] Comment on above: Order Comment: Comme nts: [id number] DRUGS OF ABUSE PANEL- 9 Performed By: #### L 500.4050, L501.9520 #### [facility] [address] [place], [address] CO2 molar conc 25.0 mmol/L Normal 21.0-32.0 [facility] Comment on above: Order Comment: Comme nts: [id number] DRUGS OF ABUSE PANEL- 9 Performed By: #### L 500.4050, L501.9520 #### [facility] [address] [place], [address] Creatinine mass conc 0.66 mg/dL Low 0.70-1.30 [facility] Comment on above: Order Comment: Comme nts: [id number] DRUGS OF ABUSE PANEL- 9 Result Comment: The validity of the calculated GFR AND GFRAA in patients over 70 years has not been determined. Clinical correlation is essential. Performed By: #### L 500.4050, L501.9520 #### [facility] [address] [place], [address] EST GFR - AA 166 mL/min Normal >60 [facility] Comment on above: Order Comment: Comme nts: [id number] DRUGS OF ABUSE PANEL- 9 Result Comment: Afri can Bahamian GFR Calc Performed By: #### L 500.4050, L501.9520 #### [facility] [address] [place], [address] GAP 8 Normal 5-15 [facility] Comment on above: Order Comment: Anae nts: [id number] DRUGS OF ABUSE PANEL- 9 Performed By: #### L 500.4050, L501.9520 #### [facility] [address] [place], [address] GFR/1.73 sq M predicted among non-blacks MDRD vol rate/area (S/P/Bld) 137 mL/min/{1.73_m2} Normal >60 [facility] Comment on above: Order Comment: Comme nts: [id number] DRUGS OF ABUSE PANEL- 9 Result Comment: Non- GFR Calc Performed By: #### L 500.4050, L501.9520 #### [facility] [address] [place], [address] Globulin mass conc (S) 3.4 g/dL Normal 2.2-4.2 [facility] Comment on above: Order Comment: Comme nts: [id number] DRUGS OF ABUSE PANEL- 9 Performed By: #### L 500.4050, L501.9520 #### [facility] [address] [place], [address] Glucose mass conc 98 mg/dL Normal 74-106 [facility] Comment on above: Order Comment: Comme nts: [id number] DRUGS OF ABUSE PANEL- 9 Result Comment: Jewels connors note revised GLUCOSE reference range effective 2017. Performed By: #### L 500.4050, L501.9520 #### [facility] [address] [place], [address] Potassium molar conc 3.6 mmol/L Normal 3.5-5.1 [facility] Comment on above: Order Comment: Comme nts: [id number] DRUGS OF ABUSE PANEL- 9 Performed By: #### L 500.4050, L501.9520 #### [facility] [address] [place], [address] Protein mass conc 7.3 g/dL Normal 6.4-8.2 [facility] Comment on above: Order Comment: Comme nts: [id number] DRUGS OF ABUSE PANEL- 9 Performed By: #### L 500.4050, L501.9520 #### [facility] [address] [place], [address] Sodium molar conc 140 mmol/L Normal 136-145 [facility] Comment on above: Order Comment: Comme nts: [id number] DRUGS OF ABUSE PANEL- 9 Performed By: #### L 500.4050, L501.9520 #### [facility] [address] [place], [address] Urea nitrogen mass conc 6 mg/dL Low 7-18 [facility] Comment on above: Order Comment: Comme nts: [id number] DRUGS OF ABUSE PANEL- 9 Performed By: #### L 500.4050, L501.9520 #### [facility] [address] [place], [address] Urea nitrogen mass conc 9.1 RATIO Low 10-20 [facility] Comment on above: Order Comment: Comme nts: [id number] DRUGS OF ABUSE PANEL- 9 Performed By: #### L 500.4050, L501.9520 #### [facility] [address] [place], [address] Erythrocyte Sed Rateon 03-14 SED RATE 10 mm/hr Normal 0-15 [facility] Comment on above: Performed By: #### L 101.9900 #### [facility] [address] [place], [address] Thyroid Stim Hormone (TSH)on 03-14-2018 Thyrotropin Qn 1.31 uIU/mL Normal 0.358-3.74 [facility] Comment on above: Order Comment: Comme nts: [id number] DRUGS OF ABUSE PANEL- 9 Performed By: #### L 500.4050, L501.9520 #### [facility] [address] [place], [address] Urine Drug Screen (VISTA)on 03-14-2018 Amphetamines Ql (U) Negative Normal <1000 ng/mL [facility] Comment on above: Order Comment: Comme nts: [id number] DRUGS OF ABUSE PANEL- 9 List of Drugs Taken or Suspected? UNK Performed By: #### L 505.5000 #### [facility] [place], [address] BARBITIURATES Negative Normal < 200 ng/mL [facility] Comment on above: Order Comment: Comme nts: [id number] DRUGS OF ABUSE PANEL- 9 List of Drugs Taken or Suspected? UNK Performed By: #### L 505.5000 #### [facility] [address] [place], [address] BENZODIAZIPINE Positive High < 200 ng/mL [facility] Comment on above: Order Comment: Comme nts: [id number] DRUGS OF ABUSE PANEL- 9 List of Drugs Taken or Suspected? UNK Performed By: #### L 505.5000 #### [facility] [address] [place], [address] Cocaine Ql (U) Negative Normal < 300 ng/mL [facility] Comment on above: Order Comment: Comme nts: [id number] DRUGS OF ABUSE PANEL- 9 List of Drugs Taken or Suspected? UNK Performed By: #### L 505.5000 #### [facility] [address] [place], [address] ECSTACY Negative Normal < 500 ng/mL [facility] Comment on above: Order Comment: Comme nts: [id number] DRUGS OF ABUSE PANEL- 9 List of Drugs Taken or Suspected? UNK Performed By: #### L 505.5000 #### [facility] [employer] [place], [address] Methadone Ql (U) Negative Normal < 300 ng/mL [facility] Comment on above: Order Comment: Comme nts: [id number] DRUGS OF ABUSE PANEL- 9 List of Drugs Taken or Suspected? UNK Performed By: #### L 505.5000 #### [facility] [employer] [place], [address] Opiates Ql (U) Negative Normal < 300 ng/mL [facility] Comment on above: Order Comment: Comme nts: [id number] DRUGS OF ABUSE PANEL- 9 List of Drugs Taken or Suspected? UNK Performed By: #### L 505.5000 #### [facility] [address] [place], [address] PCP Negative Normal < 25 ng/mL [facility] Comment on above: Order Comment: Comme nts: [id number] DRUGS OF ABUSE PANEL- 9 List of Drugs Taken or Suspected? UNK Performed By: #### L 505.5000 #### [facility] [employer] [address] [place], [address] THC Positive High < 50 ng/mL [facility] Comment on above: Order Comment: Comme nts: [id number] DRUGS OF ABUSE PANEL- 9 List of Drugs Taken or Suspected? UNK Performed By: #### L 505.5000 #### [facility] [address] [place], [address] VISTA UDS PH 5 Normal [facility] Comment on above: Order Comment: Comme nts: [id number] DRUGS OF ABUSE PANEL- 9 List of Drugs Taken or Suspected? UNK Performed By: #### L 505.5000 #### [facility] [address] [place], [place], [address] TO BE CONFIRMED Normal [facility] Comment on above: Order Comment: Comme nts: [id number] DRUGS OF ABUSE PANEL- 9 List of Drugs Taken or Suspected? UNK Result Comment: CONF IRMATORY TESTING FOR ALL POSITIVE URINE DRUG SCREEN RESULTS WILL ONLY BE SENT OUT UPON PHYSICIAN ORDER. VISTA Urine Drug Screen methods provide only preliminary analytical test results. A more specific alternate chemical method must be used in order to obtain a confirmed analytical result. Gas chromatography/mass spectrometery (GC/MS) is the preferred confirmatory method. Clinical consideration and professional judgement should be applied to any drug of abuse test result, particularly when preliminary positive results are used. URINE TCA TESTING MUST BE ORDERED SEPARATELY. USE TEST MNEMONIC: UTCA Performed By: #### L 505.5000 #### [facility] [address] [place], [address] Vitamin B12on 03-14-2018 Cobalamin (Vitamin B12) mass conc 720 pg/mL Normal 211-911 [facility] Comment on above: Performed By: #### L 503.0105 #### [facility] [address] [place], [address] Alcohol, Blood (Medical)-Ser umon 07-05-2017 SERUM ETOH 5.0 mg/dL Normal [facility] Comment on above: Result Comment: The serum:whole blood ethanol ratio is approximately 1.14 and varies slightly with hematocrit. Medical Alcohol reference interval and critical value in non-tolerant individuals; 50 - 100 Impairment 100 Intoxication 100 - 250 Severe Poisoning 250 - 400 Deep/possible fatal coma Performed By: #### L 501.9100 #### [facility] [address] [place], [address] Basic Metabolic Profile (BMP )on 07-05-2017 Calcium mass conc 8.9 mg/dL Normal 8.5-10.1 [facility] Comment on above: Performed By: #### L 500.2500 #### [facility] [address] [place], [address] Chloride molar conc 103 mmol/L Normal 98-107 [facility] Comment on above: Performed By: #### L 500.2500 #### [facility] [address] [facility] [address] CO2 molar conc 25.0 mmol/L Normal 21.0-32.0 [facility] Comment on above: Performed By: #### L 500.2500 #### [facility] [address] [facility] [address] Creatinine mass conc 0.76 mg/dL Normal 0.70-1.30 [facility] Comment on above: Result Comment: The validity of the calculated GFR AND GFRAA in patients over 70 years has not been determined. Clinical correlation is essential. Performed By: #### L 500.2500 #### [facility] [address] [place], [address] EST GFR - AA 142 mL/min Normal >60 [facility] Comment on above: Result Comment: Afri can Bahamian GFR Calc Performed By: #### L 500.2500 #### [facility] [address] [place], [address] Estimated CRCL 115.32 ml/min Normal [facility] Comment on above: Performed By: #### L 500.2500 #### [facility] [address] [place], [address] GAP 11 Normal 5-15 [facility] Comment on above: Performed By: #### L 500.2500 #### [facility] [address] [place], [address] GFR/1.73 sq M predicted among non-blacks MDRD vol rate/area (S/P/Bld) 117 mL/min/{1.73_m2} Normal >60 [facility] Comment on above: Result Comment: Non- GFR Calc Performed By: #### L 500.2500 #### [facility] [address] [place], [address] Glucose mass conc 142 mg/dL High 74-106 [facility] Comment on above: Result Comment: Fast ing Glucose result greater than or equal to 126 mg/dL suggests DIABETES MELLITUS per A.D.A. criteria. Please note revised GLUCOSE reference range effective 2017. Performed By: #### L 500.2500 #### [facility] [address] [place], [address] Potassium molar conc 3.8 mmol/L Normal 3.5-5.1 [facility] Comment on above: Result Comment: Slig ht Hemolysis, Result may be falsely increased. Performed By: #### L 500.2500 #### [facility] [address] [place], [address] Sodium molar conc 139 mmol/L Normal 136-145 [facility] Comment on above: Performed By: #### L 500.2500 #### [facility] [address] [place], [address] Urea nitrogen mass conc 10 mg/dL Normal 7-18 [facility] Comment on above: Performed By: #### L 500.2500 #### [facility] [address] [place], [address] Urea nitrogen mass conc 13.2 RATIO Normal 10-20 [facility] Comment on above: Performed By: #### L 500.2500 #### [facility] [address] [place], [address] CBC W/Diff, Automatedon 05-2 Absolute Neut 8.0 X10 3/uL High 2.0-7.7 [facility] Comment on above: Performed By: #### L 100.0100 #### [facility] [address] [place], [address] Basophils/100 WBC (Bld) 0.3 % Normal 0-1 [facility] Comment on above: Performed By: #### L 100.0100 #### [facility] [address] [place], [address] Eosinophils/100 WBC (Bld) 0.3 % Normal 0-5 [facility] Comment on above: Performed By: #### L 100.0100 #### [facility] [address] [place], [address] IM GRAN % 0.200 % Normal 0.0-0.9 [facility] Comment on above: Result Comment: IG% - Immature Granulocytes (promyelocytes, myelocytes and metamyelocytes) > 1% indicates that a LEFT SHIFT is Present. Performed By: #### L 100.0100 #### [facility] [address] [place], [address] Lymphocytes #/vol (Bld) 1.30 X10 3/ul Normal 0.83-4.51 [facility] Comment on above: Performed By: #### L 100.0100 #### [facility] [address] [place], [address] Lymphocytes/100 WBC (Bld) 12.8 % Low 19-41 [facility] Comment on above: Performed By: #### L 100.0100 #### [facility] [address] [place], [address] Monocytes/100 WBC (Bld) 7.3 % Normal 0-10 [facility] Comment on above: Performed By: #### L 100.0100 #### [facility] [address] [place], [address] Neutrophils/100 WBC (Bld) 79.1 % High 47-70 [facility] Comment on above: Performed By: #### L 100.0100 #### [facility] [address] [place], [address] Erythrocyte distribution width Ratio (RBC) 13.5 % Normal 11.6-14.6 [facility] Comment on above: Performed By: #### L 100.0100 #### [facility] [address] [place], [address] Hematocrit Volume Fraction (Bld) 42.0 % Normal 40-54 [facility] Comment on above: Performed By: #### L 100.0100 #### [facility] [address] [place], [address] Hemoglobin mass conc (Bld) 14.2 g/dL Normal 13.0-16.5 [facility] Comment on above: Performed By: #### L 100.0100 #### [facility] [address] [place], [address] MCH Entitic mass (RBC) 30.0 pg Normal 27.0-32.0 [facility] Comment on above: Performed By: #### L 100.0100 #### [facility] [address] [place], [address] MCHC mass conc (RBC) 33.8 g/gl Normal 32-36 [facility] Comment on above: Performed By: #### L 100.0100 #### [facility] [address] [place], [address] MCV Entitic volume (RBC) 88.6 fL Normal 80-94 [facility] Comment on above: Performed By: #### L 100.0100 #### [facility] [address] [place], [address] Platelet mean volume Entitic volume (Bld) 9.6 fL Normal 6.2-12.0 [facility] Comment on above: Performed By: #### L 100.0100 #### [facility] [address] [place], [address] Platelets #/vol (Bld) 273 10*3/uL Normal 150-450 [facility] Comment on above: Performed By: #### L 100.0100 #### [facility] [address] [place], [address] RBC #/vol (Bld) 4.74 M/mm3 Normal 4.6-6.2 [facility] Comment on above: Performed By: #### L 100.0100 #### [facility] [address] [place], [address] RDW SD 43.8 fl Normal 35.1-43.9 [facility] Comment on above: Performed By: #### L 100.0100 #### [facility] [address] [place], [address] WBC #/vol (Bld) 10.1 10*3/uL Normal 4.4-11.0 [facility] Comment on above: Performed By: #### L 100.0100 #### [facility] [address] [place], [address] Emergency Department Summary on 07-05-2017 Emergency Department Summary [facility] Medical Records Department [address] [place] [address] Emergency Department Summary 07/05/17 1420 MR#: [id number] Acct: [id number] Name: FADI ALEXANDRE Rep #: [id number] : 1970 47 From: Cici Martinez MD PCP: Luis Mcfadden MD Status: REG ER - ER Visit Summary Date of Service: 07/05/17 Chief Complaint: Manic episode History of Present Illness: The patient is a 47 M sent by the counseling center for evaluation. Patient was being seen by his counselor for what he states was a routine appointment. He states he was misdiagnosed as having a manic episode. He became agitated and the police were called. He was brought to the ED for further evaluation. He is easily distracted with pressured speech. He denies suicidal or homicidal ideation. He states that he has been taking his medications although report was that he was noncompliant. He states he has not been sleeping well. Physical Examination: Vitals are stable. Patient is afebrile. Alert no acute distress. HEENT exam is unremarkable. Neck is supple. Lungs are clear and equal bilaterally. Heart is regular rate and rhythm. Abdomen is soft nontender nondistended. Extremities are unremarkable. Skin is warm and dry. No focal neurologic deficit. Pressured speech, denies suicidal ideation Remainder of exam is unremarkable. Emergency Department Course and Treatment: CBC, chemistries unremarkable. Alcohol negative. Tox is pending. Discussed with the counseling center for evaluation. Disposition: Per counseling center Impression: Manic episode This note was generated with [employer] dictation software. It may contain incorrect words, spelling, and punctuation that were not noted in review of the chart prior to signing ED Disposition - Plan for ED Patient: Chief Complaint: Suicidal Referrals: Luis Mcfadden MD [Primary Care Provider] - What to do if you have Problems For any increased pain, shortness of breath, bleeding, nausea or vomiting, chest pain, or any unexpected problems, contact your Primary Care Provider. Call [facility] ([phone]) or report to the closest Emergency Room. Call 911 if necessary. 07/05/17 6110 Date Cici Martinez MD Cosigner Signature (If Indicated): Date CC: Luis Mcfadden MD [facility] Urine Drug Screen (VISTA)on 07-05-2017 Amphetamines Ql (U) Negative Normal <1000 ng/mL [facility] Comment on above: Performed By: #### L 505.5000 #### [facility] [address] [place], [address] BARBITIURATES Negative Normal < 200 ng/mL [facility] Comment on above: Performed By: #### L 505.5000 #### [facility] [address] [place], [address] BENZODIAZIPINE Negative Normal < 200 ng/mL [facility] Comment on above: Performed By: #### L 505.5000 #### [facility] [address] [place], [address] Cocaine Ql (U) Negative Normal < 300 ng/mL [facility] Comment on above: Performed By: #### L 505.5000 #### [facility] [place], [address] ECSTACY Negative Normal < 500 ng/mL [facility] Comment on above: Performed By: #### L 505.5000 #### [facility] [place], [address] Methadone Ql (U) Negative Normal < 300 ng/mL [facility] Comment on above: Performed By: #### L 505.5000 #### [facility] [address] [place], [address] Opiates Ql (U) Negative Normal < 300 ng/mL [facility] Comment on above: Performed By: #### L 505.5000 #### [facility] [address] [place] [place] [address] [place], [address] PCP Negative Normal < 25 ng/mL [facility] Comment on above: Performed By: #### L 505.5000 #### [facility] [address] [place], [place], [address] THC Positive High < 50 ng/mL [facility] Comment on above: Performed By: #### L 505.5000 #### [facility] [address] [place], [place], [address] VISTA UDS PH 6 Normal [facility] Comment on above: Performed By: #### L 505.5000 #### [facility] [address] [place], [place], [id number] TO BE CONFIRMED Normal [facility] Comment on above: Result Comment: CONF IRMATORY TESTING FOR ALL POSITIVE URINE DRUG SCREEN RESULTS WILL ONLY BE SENT OUT UPON PHYSICIAN ORDER. VISTA Urine Drug Screen methods provide only preliminary analytical test results. A more specific alternate chemical method must be used in order to obtain a confirmed analytical result. Gas chromatography/mass spectrometery (GC/MS) is the preferred confirmatory method. Clinical consideration and professional judgement should be applied to any drug of abuse test result, particularly when preliminary positive results are used. URINE TCA TESTING MUST BE ORDERED SEPARATELY. USE TEST MNEMONIC: [facility] Performed By: #### L 505.5000 #### [facility] [address] [place], [place], [id number] Vital Signs Date Time Vital Sign Value Performing Clinician Facility 10-17-2024 12:40-0400 Diastolic blood pressure 88 mm[Hg] Chapis Markham MD Work Phone: [facility] 10-17-2024 12:40-0400 Heart rate 72 /min Chapis Markham MD Work Phone: [facility] 10-17-2024 12:40-0400 Respiratory rate 18 /min Chapis Markham MD Work Phone: [facility] 10-17-2024 12:40-0400 SaO2% (BldA) [Mass fraction] 99 % hCapis Markham MD Work Phone: [facility] 10-17-2024 12:40-0400 Systolic blood pressure 145 mm[Hg] Chapis Markham MD Work Phone: [facility] 10-17-2024 11:09-0400 Body height 175.3 cm Chapis Markham MD Work Phone: [facility] 10-17-2024 11:09-0400 Body mass index (BMI) [Ratio] 25.25 kg/m2 Chapis Markham MD Work Phone: [facility] 10-17-2024 11:09-0400 Body temperature 97.7 [degF] Chapis Markham MD Work Phone: [facility] 10-17-2024 11:09-0400 Body weight 77.56 kg Chapis Markham MD Work Phone: [facility] 10-02-2024 14:55-0400 Body height 175.3 cm Pacc 1 Work Phone: [facility] 10-02-2024 14:55-0400 Body mass index (BMI) [Ratio] 25.31 kg/m2 Pacc 1 Work Phone: [facility] 10-02-2024 14:55-0400 Body temperature 97.81 [degF] Pacc 1 Work Phone: [facility] 10-02-2024 14:55-0400 Body weight 77.75 kg Pacc 1 Work Phone: [facility] 10-02-2024 14:55-0400 Diastolic blood pressure 70 mm[Hg] Pacc 1 Work Phone: [facility] 10-02-2024 14:55-0400 Heart rate 94 /min Pacc 1 Work Phone: [facility] 10-02-2024 14:55-0400 Respiratory rate 14 /min Pacc 1 Work Phone: [facility] 10-02-2024 14:55-0400 SaO2% (BldA) [Mass fraction] 94 % Pacc 1 Work Phone: [facility] 10-02-2024 14:55-0400 Systolic blood pressure 114 mm[Hg] Pacc 1 Work Phone: [facility] 10-02-2024 13:37-0400 Body mass index (BMI) [Ratio] 25.25 kg/m2 Luis Mcfadden MD Work Phone: [facility] 10-02-2024 13:37-0400 Body weight 77.56 kg Luis Mcfadden MD Work Phone: [facility] 10-02-2024 13:37-0400 Diastolic blood pressure 64 mm[Hg] Luis Mcfadden MD Work Phone: [facility] 10-02-2024 13:37-0400 Heart rate 96 /min Luis Mcfadden MD Work Phone: [facility] 10-02-2024 13:37-0400 SaO2% (BldA) [Mass fraction] 92 % Luis Mcfadden MD Work Phone: [facility] 10-02-2024 13:37-0400 Systolic blood pressure 104 mm[Hg] Luis Mcfadden MD Work Phone: [facility] 05-23-2024 14:02-0400 Body height 175.3 cm Pulm Wstr Work Phone: [facility] 05-23-2024 14:02-0400 Body mass index (BMI) [Ratio] 24.81 kg/m2 Pulm Wstr Work Phone: [facility] 05-23-2024 14:02-0400 Body weight 76.2 kg Pulm Wstr Work Phone: [facility] 05-23-2024 12:57-0400 Body height 176.5 cm Rema Alfred SCREEDMAN/LABORER.CLAMP JIG ASSEMBLER Work Phone: [facility] Comment on above: Verbal 05-23-2024 12:57-0400 Body mass index (BMI) [Ratio] 24.45 kg/m2 Rema Alfred SCREEDMAN/LABORER.[employer] J[employer] ASSEMBLER Work Phone: [facility] 05-23-2024 12:57-0400 Body temperature 98.01 [degF] Rema Alfred SCREEDMAN/LABORER.CL[employer] JIG ASSEMBLER Work Phone: [facility] 05-23-2024 12:57-0400 Body weight 76.2 kg Rema Alfred SCREEDMAN/LABORER.CL[employer] JIG ASSEMBLER Work Phone: [facility] 05-23-2024 12:57-0400 Diastolic blood pressure 78 mm[Hg] Rema Alfred SCREEDMAN/LABORER.CLAMP JIG ASSEMBLER Work Phone: [facility] 05-23-2024 12:57-0400 Heart rate 96 /min Rema Alfred SCREEDMAN/LABORER.CL[employer] J[employer] ASSEMBLER Work Phone: [facility] 05-23-2024 12:57-0400 Respiratory rate 14 /min Rema Alfred SCREEDMAN/LABORER.CL[employer] J[employer] ASSEMBLER Work Phone: [facility] 05-23-2024 12:57-0400 SaO2% (BldA) [Mass fraction] 96 % Rema Alfred SCREEDMAN/LABORER.CL[employer] JIG ASSEMBLER Work Phone: [facility] 05-23-2024 12:57-0400 Systolic blood pressure 112 mm[Hg] Rema Alfred SCREEDMAN/LABORER.CL[employer] JIG ASSEMBLER Work Phone: [facility] 05-21-2024 10:34-0400 Body height 175.3 cm Luis Mcfadden MD Work Phone: [facility] 05-21-2024 10:34-0400 Body mass index (BMI) [Ratio] 24.96 kg/m2 Luis Mcfadden MD Work Phone: [facility] 05-21-2024 10:34-0400 Body weight 76.66 kg Luis Mcfadden MD Work Phone: [facility] 05-21-2024 10:34-0400 Diastolic blood pressure 64 mm[Hg] Luis Mcfadden MD Work Phone: [facility] 05-21-2024 10:34-0400 Heart rate 102 /min Luis Mcfadden MD Work Phone: [facility] 05-21-2024 10:34-0400 SaO2% (BldA) [Mass fraction] 95 % Luis Mcfadden MD Work Phone: [facility] 05-21-2024 10:34-0400 Systolic blood pressure 104 mm[Hg] Luis Mcfadden MD Work Phone: [facility] 11-22-2023 11:11-0400 Body mass index (BMI) [Ratio] 25.59 kg/m2 Naina Suppan SCREEDMAN/LABORER.CLAMP JIG ASSEMBLER Work Phone: [facility] 11-22-2023 11:11-0400 Body weight 78.6 kg Naina Suppan SCREEDMAN/LABORER.CL[employer] J[employer] ASSEMBLER Work Phone: [facility] 11-22-2023 11:11-0400 Diastolic blood pressure 68 mm[Hg] Naina Suppan SCREEDMAN/LABORER.CL[employer] J[employer] ASSEMBLER Work Phone: [facility] 11-22-2023 11:11-0400 Heart rate 73 /min Naina Suppan SCREEDMAN/LABORER.CL[employer] J[employer] ASSEMBLER Work Phone: [facility] 11-22-2023 11:11-0400 SaO2% (BldA) [Mass fraction] 95 % Naina Suppan SCREEDMAN/LABORER.CL[employer] J[employer] ASSEMBLER Work Phone: [facility] 11-22-2023 11:11-0400 Systolic blood pressure 100 mm[Hg] Naina Suppan SCREEDMAN/LABORER.CL[employer] JIG ASSEMBLER Work Phone: [facility] 11-15-2023 11:43-0400 Body mass index (BMI) [Ratio] 25.55 kg/m2 Naina Suppan SCREEDMAN/LABORER.CL[employer] J[employer] ASSEMBLER Work Phone: [facility] 11-15-2023 11:43-0400 Body weight 78.47 kg Naina Suppan SCREEDMAN/LABORER.CL[employer] J[employer] ASSEMBLER Work Phone: [facility] 11-15-2023 11:43-0400 Diastolic blood pressure 64 mm[Hg] Naina Suppan SCREEDMAN/LABORER.CL[employer] J[employer] ASSEMBLER Work Phone: [facility] 11-15-2023 11:43-0400 Heart rate 102 /min Naina Suppan SCREEDMAN/LABORER.CL[employer] JIG ASSEMBLER Work Phone: [facility] 11-15-2023 11:43-0400 Respiratory rate 20 /min Naina Suppan SCREEDMAN/LABORER.CL[employer] JIG ASSEMBLER Work Phone: [facility] 11-15-2023 11:43-0400 SaO2% (BldA) [Mass fraction] 94 % Naina Quiñonez SCREEDMAN/LABORER.CLAMP JIG ASSEMBLER Work Phone: [facility] 11-15-2023 11:43-0400 Systolic blood pressure 108 mm[Hg] Naina Quiñonez SCREEDMAN/LABORER.CL[employer] JIG ASSEMBLER Work Phone: [facility] 05-18-2021 13:02-0400 Body weight 56.25 kg Narcisa Haagen SCREEDMAN/LABORER.CL[employer] JIG ASSEMBLER Work Phone: [facility] 05-18-2021 13:02-0400 Diastolic blood pressure 66 mm[Hg] Narcisa Haagen SCREEDMAN/LABORER.CL[employer] JIG ASSEMBLER Work Phone: [facility] 05-18-2021 13:02-0400 Heart rate 84 /min Narcisa Haagen SCREEDMAN/LABORER.CL[employer] JIG ASSEMBLER Work Phone: [facility] 05-18-2021 13:02-0400 Respiratory rate 18 /min Narcisa Haagen SCREEDMAN/LABORER.CL[employer] JIG ASSEMBLER Work Phone: [facility] 05-18-2021 13:02-0400 SaO2% (BldA) [Mass fraction] 94 % Narcisa Haagen SCREEDMAN/LABORER.CL[employer] JIG ASSEMBLER Work Phone: [facility] 05-18-2021 13:02-0400 Systolic blood pressure 98 mm[Hg] Narcisa Haagen SCREEDMAN/LABORER.CL[employer] JIG ASSEMBLER Work Phone: [facility] 12-05-2020 23:21-0400 Diastolic blood pressure 81 mm[Hg] Scott Nesheim DO Work Phone: [facility] Work Phone: 12-05-2020 23:21-0400 Heart rate 98 /min Scott Nesheim DO Work Phone: [facility] Work Phone: 12-05-2020 23:21-0400 Respiratory rate 16 /min Scott Nesheim DO Work Phone: [facility] Work Phone: 12-05-2020 23:21-0400 SaO2% (BldA) [Mass fraction] 95 % Scott Nesheim DO Work Phone: [facility] Work Phone: 12-05-2020 23:21-0400 Systolic blood pressure 120 mm[Hg] Scott Nesheim DO Work Phone: [facility] Work Phone: 12-05-2020 22:02-0400 Body temperature 98.01 [degF] Scott Nesheim DO Work Phone: [facility] Work Phone: 11-26-2020 07:41-0400 Body temperature 99 [degF] Edmund Conklin MD Work Phone: [facility] Work Phone: 11-26-2020 07:41-0400 Diastolic blood pressure 73 mm[Hg] Edmund Conklin MD Work Phone: [facility] Work Phone: 11-26-2020 07:41-0400 Heart rate 88 /min Edmund Conklin MD Work Phone: [facility] Work Phone: 11-26-2020 07:41-0400 Respiratory rate 16 /min Edmund Conklin MD Work Phone: [facility] Work Phone: 11-26-2020 07:41-0400 SaO2% (BldA) [Mass fraction] 93 % Edmund Conklin MD Work Phone: [facility] Work Phone: 11-26-2020 07:41-0400 Systolic blood pressure 125 mm[Hg] Edmund Conklin MD Work Phone: [facility] Work Phone: 11-23-2020 10:57-0400 Body height 175.3 cm Edmund Conklin MD Work Phone: [facility] Work Phone: 11-20-2020 22:45-0400 Body mass index (BMI) [Ratio] 18.9 kg/m2 Edmund Conklin MD Work Phone: [facility] Work Phone: 11-20-2020 22:45-0400 Body weight 58.06 kg Edmund Conklin MD Work Phone: [facility] Work Phone: 04-02-2020 07:12-0500 Body Temperature 99.3 [degF] Juan Beelli [facility] Work Phone: 04-02-2020 07:12-0500 BP Diastolic 74 mm[Hg] Juan Rohitlli [facility] Work Phone: 04-02-2020 07:12-0500 BP Systolic 140 mm[Hg] Juan Rohitlli [facility] Work Phone: 04-02-2020 07:12-0500 Pulse (Heart Rate) 72 /min Juan Abdullahii [facility] Work Phone: 04-02-2020 07:12-0500 Pulse Oximetry 99 % Juan Beelli [facility] Work Phone: 04-02-2020 07:12-0500 Respiratory Rate 30 /min Juan Abdullahii [facility] Work Phone: 03-31-2020 18:24-0500 BMI (Body Mass Index) 18.52 kg/m2 Juan Beelli [facility] Work Phone: 03-31-2020 18:24-0500 Body weight 56.88 kg Juan Beelli [facility] Work Phone: 03-31-2020 12:37-0500 Height 175.3 cm Juan Beelli [facility] Work Phone: 09-23-2019 11:50-0400 Pulse (Heart Rate) 89 /min [facility], [place] 09-23-2019 11:50-0400 Respiratory Rate 16 /min [facility], [place] 09-23-2019 11:49-0400 Pulse Oximetry 97 % [facility] , [place] 09-23-2019 11:31-0400 BP Diastolic 62 mm[Hg] [facility] [place] 09-23-2019 11:31-0400 BP Systolic 86 mm[Hg] [facility] [place] 09-23-2019 10:03-0400 Body Temperature 98.29 [degF] [facility] [place] 08-22-2019 06:53-0400 Body Temperature 97.5 [degF] Luis [facility] , [place] 08-22-2019 06:53-0400 BP Diastolic 69 mm[Hg] [facility] , [place] 08-22-2019 06:53-0400 BP Systolic 108 mm[Hg] Luis [facility] , [place] 08-22-2019 06:53-0400 Pulse (Heart Rate) 64 /min [facility], [place] 08-22-2019 06:53-0400 Pulse Oximetry 97 % [facility] , [place] 08-22-2019 06:53-0400 Respiratory Rate 18 /min Luis [facility], [place] 07-24-2019 04:27-0400 BMI (Body Mass Index) 22.15 kg/m2 [facility], [place] 07-24-2019 04:27-0400 Body weight 68.04 kg Luis [facility] , [place] 07-24-2019 04:24-[address] [facility] , [place] 06-28-2019 05:59-0400 Body Temperature 98.49 [degF] [facility], [place] 06-28-2019 05:59-0400 BP Diastolic 70 mm[Hg] [facility] , [place] 06-28-2019 05:59-0400 BP Systolic 110 mm[Hg] [facility] , [place] 06-28-2019 05:59-0400 Pulse (Heart Rate) 62 /min Luis [facility], [place] 06-28-2019 05:59-0400 Pulse Oximetry 98 % [facility] , [place] 06-28-2019 05:59-0400 Respiratory Rate 16 /min Luis [facility], [place] 06-20-2019 18:02-0400 Height 175.3 cm [facility] [place] [place] 06-20-2019 12:02-0400 BMI (Body Mass Index) 22.15 kg/m2 Luis [facility] [place] 06-20-2019 12:02-0400 Body weight 68.04 kg Luis [place], [place] 05-02-2019 06:49-0400 Body Temperature 97.5 [degF] Luis [facility], [place] 05-02-2019 06:49-0400 BP Diastolic 57 mm[Hg] [place], [place] 05-02-2019 06:49-0400 BP Systolic 101 mm[Hg] Luis [place], [place] 05-02-2019 06:49-0400 Pulse (Heart Rate) 58 /min Luis [place], [place] 05-02-2019 06:49-0400 Pulse Oximetry 97 % Luis [place] 05-02-2019 06:49-0400 Respiratory Rate 16 /min Luis [facility], [place] 04-19-2019 16:00-0400 BMI (Body Mass Index) 21.25 kg/m2 Luis [place] 04-19-2019 16:00-0400 Body weight 66.22 kg Luis [place] 04-19-2019 16:00-0400 Height 176.5 cm [place], [place] Encounters Encounter Date Encounter Type Care Provider Facility Start: 12-18-2024 ambulatory Ariel Velez y:[facility] Start: 12-14-2024 End: 12-14-2024 ambulatory LUIS MCFADDEN Facility:[facility] Start: 12-03-2024 End: 12-03-2024 ambulatory LUIS Vaughan LESA Facility:[facility] Start: 11-08-2024 End: 11-08-2024 ambulatory LUIS MCFADDEN Facility:[facility] Start: 11-02-2024 ambulatory LUIS MCFADDEN Facility :[facility] Start: 10-27-2024 End: 10-27-2024 ambulatory SELF Facility:[facility] Start: 10-17-2024 ambulatory Remalorraine Simon Facilit y:[facility] Start: 10-17-2024 End: 10-17-2024 Subsequent hospital visit by physician Chapis Markham MD Work Phone: [facility] Endoscopy Comment on above: Gastroesophageal ref lux disease, unspecified whether esophagitis present [K21.9] Start: 10-09-2024 ambulatory LUIS MCFADDEN Facility :[facility] Start: 10-09-2024 End: 10-09-2024 Subsequent hospital visit by physician Mri Radio [facility] (I-Stat/1.5t) Work Phone: Radiology Start: 10-02-2024 End: 10-02-2024 [facility] [place] 1 Work Phone: Pre Anesthesia Comment on above: Tobacco use (Primary Dx); Marijuana use; History of traumatic brain injury; Undifferentiated schizophrenia (HCC); Organic mood disorder; History of tracheostomy; Mixed hyperlipidemia; History of psychoactive substance use disorder; Gastroesophageal reflux disease without esophagitis; History of percutaneous endoscopic gastrostomy Headache, unspecifie d headache type (Primary Dx); History of traumatic brain injury; Skin foreign body; Mixed hyperlipidemia; Organic mood disorder; Undifferentiated schizophrenia (HCC); Clubbing of fingers; Polycythemia Headache, unspecifie d headache type [R51.9] Start: 10-02-2024 End: 10-02-2024 ambulatory LUIS MCFADDEN Facility:[facility] Start: 09-17-2024 End: 09-22-2024 Telephone encounter Katharine ALBA General Surgery Comment on above: Patient Question Start: 06-25-2024 End: 08-25-2024 Follow-up encounter Rema Simon APRN.CNP Work Phone: General Surgery Start: 06-19-2024 End: 06-19-2024 Telephone encounter Luis Mcfadden MD Work Phone: [address] [place] [address] Start: 06-05-2024 End: 06-06-2024 Telephone encounter Luis Mcfadden MD Work Phone: [facility] [place] Comment on above: Patient Update Start: 05-28-2024 End: 05-29-2024 ambulatory Lisa Echeverria SCREEDMAN/LABORER.CL[employer] JIG ASSEMBLER Work Phone: Pulmonary Medicine Start: 05-24-2024 End: 07-24-2024 Follow-up encounter Luis Mcfadden MD Work Phone: [facility] [place] Start: 05-24-2024 End: 05-24-2024 Telephone encounter Luis Mcfadden MD Work Phone: [facility] [place] Comment on above: Results Start: 05-23-2024 End: 07-23-2024 Follow-up encounter Luis Mcfadden MD Work Phone: [facility] [place] Start: 05-23-2024 End: 05-24-2024 Telephone encounter Luis Mcfadden MD Work Phone: Family [facility] [place] Comment on above: Results Start: 05-23-2024 End: 05-23-2024 Patient encounter procedure Pulm [facility] Work Phone: PULM LAB [facility] Comment on above: Gastroesophageal ref lux disease without esophagitis; Screening for colon cancer Start: 05-23-2024 End: 05-23-2024 ambulatory Pulm [facility] Work Phone: PULM LAB [facility] Comment on above: Spirometry Start: 05-21-2024 End: 05-21-2024 Subsequent hospital visit by physician Xr [facility] [place] Work Phone: Radiology Comment on above: SOB (shortness of br eath) [R06.02] Start: 05-21-2024 End: 05-21-2024 ambulatory LUIS MCFADDEN Facility:[facility] Start: 05-21-2024 End: 05-21-2024 Patient encounter procedure Luis Mcfadden MD Work Phone: Family [facility] [place] Comment on above: History of traumatic brain injury (Primary Dx); Gastroesophageal reflux disease without esophagitis; Screening for colon cancer; Mixed hyperlipidemia; Screening for prostate cancer; Medication monitoring encounter; Need for vaccination; SOB (shortness of breath); Tobacco abuse; Clubbing of fingers Start: 11-22-2023 End: 11-22-2023 Office outpatient visit 15 minutes Naina Quiñonez SCREEDMAN/LABORER.CL[employer] JIG ASSEMBLER Work Phone: [facility] Comment on above: Gastroesophageal ref lux disease without esophagitis (Primary Dx); Screening for depression; Encounter for screening examination for other mental health and behavioral disorders; Dermatitis; Tobacco use Start: 11-15-2023 End: 11-15-2023 Office outpatient visit 15 minutes Naina Quiñonez APRN.CLAMP JIG ASSEMBLER Work Phone: [facility] Comment on above: Allergic dermatitis (Primary Dx); Welts Start: 12-02-2022 End: 12-03-2022 ambulatory CHRIS GILLIAM [facility] Comment on above: Vitamin D deficiency , unspecified (Primary Dx); 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 Start: 05-18-2021 End: 05-18-2021 Subsequent hospital visit by physician Harley [facility] [place] Work Phone: Radiology Comment on above: Failure to thrive in adult [R62.7] Start: 05-18-2021 End: 05-18-2021 Patient encounter procedure Narcisa Pacheco APRN.CLAMP JIG ASSEMBLER Work Phone: [facility] Comment on above: Failure to thrive in adult (Primary Dx) Start: 12-05-2020 End: 12-05-2020 Emergency department patient visit Scott Jensen DO Work Phone: [facility] ED Comment on above: Evaluation by medica l service required (Primary Dx) Start: 12-05-2020 End: 12-05-2020 Procedure needed Scott Jensen DO Work Phone: [facility] ED Start: 11-20-2020 End: 11-26-2020 Evaluation and management of inpatient Edmund Conklin MD Work Phone: [facility] 4S TELEMETRY Comment on above: Failure to thrive in adult (Primary Dx); Other fatigue; History of traumatic brain injury; Polypharmacy; Unable to care for self Start: 11-17-2020 End: 11-17-2020 Subsequent hospital visit by physician Chris Gilliam Work Phone: [facility] Laboratory Start: 03-31-2020 End: 04-02-2020 Evaluation and management of inpatient Juan Graves Work Phone: [facility] 2E TELEMET[facility] Comment on above: Elevated CK (Primary Dx); Agitation Start: 09-23-2019 End: 09-23-2019 Emergency department patient visit Parris Samuels Work Phone: [facility] ED Comment on above: Somnolence (Primary Dx); Opioid overdose, accidental or unintentional, initial encounter ([facility]) Start: 09-18-2019 End: 09-18-2019 Telephone encounter Ignacio Fine Gisella Work Phone: Urology Comment on above: Urinary Retention Start: 07-23-[address] [facility] [place] Start: 06-20-[address] [facility] [place] Start: 04-19-[address] [facility] [place] Start: 03-14-2018 Patient encounter procedure Yung F arnoldjudy Facility:[facility] Start: 07-05-2017 End: 07-06-2017 Emergency department patient visit [facility] Facility:[facility] Procedures Date Procedure Procedure Detail Performing Clinician Start: 10-17-2024 Esophagogastroduodenoscopy transoral diagnostic Rema Simon APRN.CLAMP JIG ASSEMBLER Work Phone: Start: 10-02-2024 Radex facial bones complete minimum 3 views Luis Mcfadden MD Work Phone: Start: 10-02-2024 Lipid 1996 panel - Serum or Plasma Pacc 1 Work Phone: Start: 05-23-2024 Plethysmography lung volumes w/wo airway resist Luis Mcfadden MD Work Phone: Start: 05-21-2024 Lipid 1995 panel - Serum or Plasma Xr Wo allen Work Phone: Start: 11-22-2023 Adult depression screening assessment Naina Quiñonez SCREEDMAN/LABORER.CLAMP JIG ASSEMBLER Work Phone: Start: 12-02-2022 Lipid 1996 panel - Serum or Plasma Chris Gilliam Work Phone: Start: 05-18-2021 Radiologic exam chest 2 views Narcisa Reyes alejandre APRN.CL[employer] J[employer] ASSEMBLER Work Phone: Start: 11-26-2020 Basic metabolic panel calcium total Chris G Salomone DO Work Phone: Start: 11-24-2020 Basic metabolic panel calcium total Chris G Salomone DO Work Phone: Start: 11-23-2020 Basic metabolic panel calcium total Chris G Salomone DO Work Phone: Start: 11-20-2020 Culture bacterial quanttative colony count urine Edmund Conklin MD Work Phone: Start: 11-20-2020 Drug screen class list a Edmund Conklin MD Work Phone: Start: 11-20-2020 Urnls dip stick/tablet rgnt auto w/o microscopy Edmund Conklin MD Work Phone: Start: 11-20-2020 ADD ON LAB TEST Edmund Conklin MD Work Phone: Start: 11-20-2020 Radiologic exam chest single view Lissette Conklin MD Work Phone: Start: 11-20-2020 Ecg routine ecg w/least 12 lds w/i&r Edmund Conklin MD Work Phone: Start: 11-20-2020 Assay of acetaminophen Edmund Conklin MD Work Phone: Start: 11-20-2020 Assay of ethanol Edmund Conklin MD Work Phone: Start: 11-20-2020 Assay of salicylate Edmund Conklin MD Work Phone: Start: 11-20-2020 Comprehensive metabolic panel Edmund Conklin MD Work Phone: Start: 11-20-2020 COVID-19, RAPID Edmund Conklin MD Work Phone: Start: 11-20-2020 RESPIRATORY PANEL, MOLECULAR, WITH COVID-19 Edmund Conklin MD Work Phone: Start: 11-20-2020 Ct head/brain w/o contrast material Edmund Conklin MD Work Phone: Start: 11-17-2020 Comprehensive metabolic panel Chris Gilliam Work Phone: Start: 11-17-2020 Drug assay valproic dipropylacetic acid total Chris Gilliam Work Phone: Start: 04-02-2020 Assay of magnesium Meredith Beyer Work Phone: Start: 04-02-2020 Blood count complete auto&auto difrntl wbc Meredith Beyer Work Phone: Start: 04-02-2020 Comprehensive metabolic panel Meredith Leos jose Work Phone: Start: 04-02-2020 Creatine kinase total Nabilaveer Mukkamalla Work Phone: Start: 04-01-2020 Assay of magnesium Mahaveer Mukkamalla Work Phone: Start: 04-01-2020 BASIC METABOLIC PANEL W/ REFLEX TO MG FOR LOW K Mahaveer Mukkamalla Work Phone: Start: 04-01-2020 Blood count complete automated Mahaveer Mukkamalla Work Phone: Start: 04-01-2020 [facility] Work Phone: Start: 03-31-2020 Drug screen class list a Juan Adusumill i Work Phone: Start: 03-31-2020 Urnls dip stick/tablet rgnt auto w/o microscopy Juan Adusumilli Work Phone: Start: 03-31-2020 COVID-19, RAPID Juan Adusumilli Work Phone: Start: 03-31-2020 Assay of ethanol Juan Adusumilli Work Phone: Start: 03-31-2020 Basic metabolic panel calcium total Juan Fieldsumilli Work Phone: Start: 03-31-2020 Blood count complete auto&auto difrntl wbc Juan Beelli Work Phone: Start: 03-31-2020 Creatine kinase total Juan Beellgabriel Work Phone: Start: 03-31-2020 Ecg routine ecg w/least 12 lds w/i&r Juan Beelli Work Phone: Start: 10-09-2019 Adult depression screening assessment Narcisa Pacheco APRN.[employer] J[employer] ASSEMBLER Work Phone: Start: 09-23-2019 Basic metabolic panel calcium total Parris Samuels Work Phone: Start: 09-23-2019 Blood count complete auto&auto difrntl wbc Parris Samuels Work Phone: Start: 09-23-2019 Radiologic exam chest single view Parris Samuels Work Phone: Start: 09-10-2019 H/O: gastrostomy History of percutaneous endoscopic gastrostomy Narcisa Pacheco APRN.CL[employer] J[employer] ASSEMBLER Work Phone: Start: 09-10-2019 H/O: tracheostomy History of tracheostomy Narcisa Pacheco APRN.CL[employer] J[employer] ASSEMBLER Work Phone: Start: 09-10-2019 Antibody screen Comment on above: Performed By: #### EDLAG #### [place] [address] Performed By: #### L ACT #### [place] [address] Start: 07-23-2019 Assay of salicylate Meredith Davies Work Phone: Start: 07-23-2019 COVID-19 Meredith Davies Work Phone: Start: 07-23-2019 Assay of acetaminophen Meredith Davies Work Phone: Start: 07-23-2019 Assay of ethanol Meredith Davies Work Phone: Start: 07-23-2019 Blood count complete auto&auto difrntl wbc Meredith Davies Work Phone: Start: 07-23-2019 Comprehensive metabolic panel Meredith bell Work Phone: Start: 07-23-2019 Creatine kinase total Meredith Davies Work Phone: Start: 07-23-2019 Ecg routine ecg w/least 12 lds w/i&r Meredith Davies Work Phone: Start: 06-23-2019 Culture bacterial quanttative colony count urine Madhu Bert Giraldoropoli Work Phone: Start: 06-23-2019 Urnls dip stick/tablet rgnt auto w/o microscopy Madhu Bert Giraldoropoli Work Phone: Start: 06-20-2019 Drug screen class list a Juan Adusumill i Work Phone: Start: 06-20-2019 Urnls dip stick/tablet rgnt auto w/o microscopy Juan Adusumilli Work Phone: Start: 06-20-2019 Assay of ethanol Juan Adusumilli Work Phone: Start: 06-20-2019 Assay of lipase Juan Adusumilli Work Phone: Start: 06-20-2019 Blood count complete auto&auto difrntl wbc Juan Adusumilli Work Phone: Start: 06-20-2019 Comprehensive metabolic panel Juan Adus umilli Work Phone: Start: 06-20-2019 Creatine kinase total Juan Adusumilli Work Phone: Start: 06-20-2019 Drug assay valproic dipropylacetic acid total Juan Adusumilli Work Phone: Start: 06-20-2019 Ecg routine ecg w/least 12 lds w/i&r Juan Adusumilli Work Phone: Start: 04-23-2019 Hemoglobin glycosylated a1c Shea A Miriam Work Phone: Start: 04-23-2019 Lipid panel Shea A Miriam Work Phone: Start: 04-23-2019 Lipid 1996 panel - Serum or Plasma Xr Wo allen Work Phone: Start: 04-19-2019 Drug screen class list a Johnathan bush Work Phone: Start: 04-19-2019 Assay of ethanol Johnathan Argueta Work Phone: Start: 04-19-2019 Assay of lipase Johnathan Argueta Work Phone: Start: 04-19-2019 Basic metabolic panel calcium total Johnathan Argueta Work Phone: Start: 04-19-2019 Blood count complete auto&auto difrntl wbc Johnathan Argueta Work Phone: Start: 04-19-2019 Hepatic function panel Johnathan Argueta Work Phone: H/O: gastrostomy History of percutaneous endoscopic gastrostomy Pacc [place] 1 Work Phone: H/O: tracheostomy History of tracheostomy Pacc [place] 1 Work Phone: Plan of Treatment Date Care Activity Detail Author Start: 02-11-2036 Pneumococcal 0-64 years Vaccine (2 of 2 - PPSV23) Pneumococcal 0-64 years Vaccine (2 of 2 - PPSV23) [facility] Work Phone: Start: 2031 RSV Immunization aged 60 or older (1 - 1-dose 60+ series) RSV Immunization aged 60 or older (1 - 1-dose 60+ series) [facility] Start: 10-02-2029 Lipid panel Lipid Screening [facility] Start: 09-09-2029 DTaP/Tdap/Td vaccine (2 - Td or Tdap) DTaP/Tdap/Td vaccine (2 - Td or Tdap) [facility] Work Phone: Start: 09-09-2029 DTaP/Tdap/Td vaccine (2 - Td) DTaP/Tdap/Td vaccine (2 - Td) [facility] [place], [place] Start: 09-09-2029 DTaP/Tdap/Td Vaccines (2 - Td or Tdap) DTaP/Tdap/Td Vaccines (2 - Td or Tdap) [facility] Start: 09-09-2029 [facility] Start: 05-21-2029 Lipid panel Lipid Screening [facility] Start: 12-03-2027 Lipid panel [facility] Start: 06-19-2027 Screening for malignant neoplasm of colon [facility] Start: 05-22-2027 Diabetes Screening Diabetes Screening [facility] Start: 12-02-2025 Diabetes Screening Diabetes Screening [facility] Start: 01-04-2025 End: 01-04-2025 Patient encounter procedure 01/04/2025 11:40 AM EST Office Visit Family [facility] [place] [address] [place], [place] [id number] Luis Mcfadden MD [address] [place] [address] 3 mo follow up [facility] [place] Comment on above: 3 mo follow up Start: 11-21-2024 Anxiety Screening Anxiety Screening [facility] Start: 11-21-2024 Covid-19 Vaccine () Covid-19 Vaccine () [facility] Comment on above: Postponed from 10/09/2023 (Declined at t his time) Start: 11-21-2024 Depression Screening Depression Screening [facility] Start: 11-21-2024 Hepatitis B Vaccine (1 of 3 - 19+ 3-dose series) Hepatitis B Vaccine (1 of 3 - 19+ 3-dose series) [facility] Comment on above: Postponed from 1990 (Declined at t his time) Start: 11-21-2024 HIV screening HIV Screening [facility] Comment on above: Postponed from 1989 (Declined at t his time) Start: 11-21-2024 Pneumococcal vaccination Pneumococcal Vaccine (2 of 2 - PCV) [facility] Comment on above: Postponed from 12/22/2017 (Declined at t his time) Start: 11-21-2024 Screening for malignant neoplasm of colon Colorectal Cancer Screening [facility] Comment on above: Postponed from 02/11/2016 (Declined at t his time) Start: 11-21-2024 Screening for malignant neoplasm of lung Lung Cancer Screening [facility] Comment on above: Postponed from 2021 (Declined at t his time) Start: 11-21-2024 Shingrix Vaccine (1 of 2) Shingrix Vaccine (1 of 2) [facility] Comment on above: Postponed from 2021 (Declined at t his time) Start: 10-17-2024 End: 10-17-2024 Patient encounter procedure [facility] Start: 10-08-2024 Influenza vaccination [facility] Start: 10-02-2024 End: 10-02-2024 Anesthesia consultation 10/02/2024 3:20 PM EDT PAT Pre Anesthesia [address] [facility] [place] [address] 1, Pacc [place] [address] [place] [address] DECLINED VV EGD 10/17 Pre Anesthesia Comment on above: DECLINED VV EGD 10/17 Start: 10-02-2024 End: 10-02-2024 Patient encounter procedure 10/02/2024 2:00 PM EDT Office Visit Family Medicine [place] [address] [facility], [place] [id number] Luis Mcfadden MD [address] [facility], [place] [address] 6 month f/u [facility] [place] Comment on above: 6 month f/u Start: 09-17-2024 End: 09-17-2024 Patient encounter procedure 09/17/2024 3:00 PM EDT Office Visit Family Medicine [place] [address] [facility], [place] [address] Luis Mcfadden MD [address] [facility], [place] [address] 6 month f/u [facility] [place] Comment on above: 6 month f/u Start: 08-06-2024 Influenza vaccination Influenza Vaccine (#1) [facility] Comment on above: Postponed from 10/09/2023 (Declined at t his time) Start: 05-31-2024 End: 05-31-2024 Patient encounter procedure 05/31/2024 10:30 AM EDT Office Visit Cardiology [address] [place] [address] SOB (shortness of breath) [R06.02]; Clubbing of fingers [R68.3] Cardiology Comment on above: SOB (shortness of breath) [R06.02]; Club cony of fingers [R68.3] Start: 05-23-2024 End: 05-23-2025 CARBOXYHEMOGLOBIN PERCY CARBOXYHEMOGLOBIN PERCY Lab Routine Polycythemia Expected: 05/23/2024, Expires: 05/23/2025 [facility] Comment on above: Expected: 05/23/2024, Expires: Start: 05-23-2024 End: 05-23-2025 CBC W Auto Differential panel - Blood COMPLETE BLOOD COUNT AND DIFFERENTIAL Lab Routine Polycythemia Expected: 05/23/2024, Expires: 05/23/2025 [facility] Work Phone: Comment on above: Expected: 05/23/2024, Expires: Start: 05-23-2024 End: 08-22-2024 Cobalamin (Vitamin B12) [Mass/volume] in Serum or Plasma VITAMIN B12 Lab Routine Medication monitoring encounter Expected: 05/23/2024, Expires: 08/22/2024 [facility] Comment on above: Expected: 05/23/2024, Expires: Start: 05-23-2024 End: 08-22-2024 Erythropoietin (EPO) [Units/volume] in Serum or Plasma ERYTHROPOIETIN/EPO Lab Routine Polycythemia Expected: 05/23/2024, Expires: 08/22/2024 [facility] Comment on above: Expected: 05/23/2024, Expires: Start: 05-23-2024 End: 08-22-2024 JAK2 gene targeted mutation analysis in Blood or Tissue by Molecular genetics method [id number] MUTATION BLOOD Lab Routine Polycythemia Expected: 05/23/2024, Expires: 08/22/2024 [facility] Comment on above: Expected: 05/23/2024, Expires: Start: 05-23-2024 End: 05-23-2024 ambulatory [facility] Comment on above: SOB (shortness of breath) [R06.02]; Club cony of fingers [R68.3] Start: 05-23-2024 End: 05-23-2024 Patient encounter procedure 05/23/2024 1:00 PM EDT Office Visit General Surgery [address] [place] [address] Rema Simon APRN.CLAMP JIG ASSEMBLER [address] [facility] [place] [address] Gastroesophageal reflux disease without esophagitis [K21.9]; Screening for colon cancer [Z12.11] no previous lh General Surgery Comment on above: Gastroesophageal reflux disease without esophagitis [K21.9]; Screening for colon cancer [Z12.11] no previous lh Start: 05-21-2024 End: 08-20-2024 Cobalamin (Vitamin B12) [Mass/volume] in Serum or Plasma [facility] Comment on above: Expected: 05/21/2024, Expires: Start: 05-21-2024 End: 05-21-2025 Comprehensive metabolic 2000 panel - Serum or Plasma [facility] Work Phone: Comment on above: Expected: 05/21/2024, Expires: 6 Start: 05-21-2024 End: 08-20-2024 LIPID PANEL, NONFASTING [facility] Comment on above: Expected: 05/21/2024, Expires: Start: 05-21-2024 End: 08-20-2024 Magnesium [Mass/volume] in Serum or Plasma [facility] Comment on above: Expected: 05/21/2024, Expires: Start: 05-21-2024 End: 08-20-2024 PSA/PROSTATE SPECIFIC ANTIGEN SCREENING [facility] Comment on above: Expected: 05/21/2024, Expires: Start: 05-21-2024 End: 05-21-2024 Patient encounter procedure 05/21/2024 10:40 AM EDT Office Visit Family Medicine [place] [address] [place] [address] Luis Mcfadden MD [address] [facility] [place] [address] 6 month f/u [facility] [place] Comment on above: 6 month f/u Start: 04-22-2024 Lipid panel [facility] Start: 12-03-2023 Diabetes mellitus screening Diabetes Screening [facility] Start: 12-03-2023 DIABETES SCREEN DIABETES SCREEN [facility] Start: 12-03-2023 Diabetes Screening Diabetes Screening [facility] Start: 11-22-2023 End: 11-22-2023 Patient encounter procedure 11/22/2023 11:20 AM EDT [facility] [place] [address] [facility] [place] [address] Naina Quiñonez, SCREEDMAN/LABORER.CLAMP JIG ASSEMBLER [address] [facility] [place] [address] Rash follow up [facility] Comment on above: Rash follow up Start: 10-09-2023 Covid-19 Vaccine ( season) Covid-19 Vaccine ( season) [facility] Start: 10-09-2023 Influenza vaccination Influenza Vaccine (#1) [facility] Start: 10-08-2022 Influenza vaccination Influenza Vaccine (#1) [facility] Start: 12-22-2021 LIPID SCREEN LIPID SCREEN [facility] Start: 2021 Screening for malignant neoplasm of lung Lung Cancer Screening [facility] Start: 2021 SHINGRIX VACCINE (1 of 2) SHINGRIX VACCINE (1 of 2) [facility] Start: 2021 Zoster Vaccines (1 of 2) Zoster Vaccines (1 of 2) [facility] Start: 10-08-2020 Adult depression screening assessment DEPRESSION SCREENING [facility] Start: 10-08-2020 Influenza vaccination Flu vaccine (#1) [facility] Work Phone: Start: 10-09-2019 Influenza vaccination Flu vaccine (#1) [place] Start: 12-22-2017 Pneumococcal vaccination Pneumococcal Vaccine (2 of 2 - PCV) [facility] Start: 12-22-2017 Pneumococcal Vaccine: Pediatrics (0 to 5 Years) and At-Risk Patients (6 to 64 Years) (2 of 2 - PCV) Pneumococcal Vaccine: Pediatrics (0 to 5 Years) and At-Risk Patients (6 to 64 Years) (2 of 2 - PCV) [facility] Start: 02-11-2016 COLOGUARD (FIT-DNA) COLOGUARD (FIT-DNA) [facility] Start: 02-11-2016 Colonoscopy COLONOSCOPY [facility] Start: 02-11-2016 COLORECTAL CANCER SCREENING COLORECTAL CANCER SCREENING [facility] Start: 02-11-[address] COLONOGRAPHY [facility] Start: 02-11-2016 FECAL OCCULT BLOOD FECAL OCCULT BLOOD [facility] Start: 02-11-2016 Screening for malignant neoplasm of colon [facility] Start: 02-11-2016 SIGMOIDOSCOPY SIGMOIDOSCOPY [facility] Start: 1990 DTaP/Tdap/Td vaccine (1 - Tdap) DTaP/Tdap/Td vaccine (1 - Tdap) [place], [place] Start: 1990 Hepatitis B Vaccine (1 of 3 - 19+ 3-dose series) Hepatitis B Vaccine (1 of 3 - 19+ 3-dose series) [facility] Start: 1989 Anxiety Screening Anxiety Screening [facility] Start: 1989 Depression Screening Depression Screening [facility] Start: 1989 Hepatitis C screening Hepatitis C Screening [facility] Start: 1989 HIV SCREENING HIV SCREENING [facility] Start: 1989 HIV screening HIV Screening [facility] Start: 1986 HIV screening HIV screen [place], [place] Start: 1983 COVID-19 Vaccine (1) COVID-19 Vaccine (1) [facility] Work Phone: Start: 1983 Depresssion Monitoring Depresssion Monitoring [facility] Start: 02-11-1976 COVID-19 VACCINE (1) COVID-19 VACCINE (1) [facility] Start: 02-11-1972 MMR Vaccines (1 of 1 - Standard series) MMR Vaccines (1 of 1 - Standard series) [facility] Start: 1971 COVID-19 Vaccine (#1) COVID-19 Vaccine (#1) [facility] Start: 1971 Hepatitis B Vaccines (1 of 3 - 3-dose series) Hepatitis B Vaccines (1 of 3 - 3-dose series) [facility] Start: 1971 Hepatitis C screening Hepatitis C screen [facility] Work Phone: Start: 1971 HIV screening HIV Screening [facility] Start: 1971 Screening for malignant neoplasm of colon [facility] Basic metabolic 2000 panel - Serum or Plasma Basic Metabolic Panel Lab Routine Daily until discontinued starting 11/23/2020, 3 completed [facility] Work Phone: Comment on above: Daily until discontinued starting 2020, 3 completed CBC W Auto Different ial panel - Blood CBC Auto Differential Lab Routine Daily until discontinued starting 11/23/2020, 3 completed [facility] Work Phone: Comment on above: Daily until discontinued starting 2020, 3 completed COLOGUARD COLOGUARD Lab Ro utine Screening for colon cancer Ordered: 05/23/2024 [facility] Work Phone: Comment on above: Ordered: 05/23/2024 End: 05-21-2025 Echocardiography ECHO Cardiology Routine SOB (shortness of breath) Clubbing of fingers 1 Occurrences starting 05/21/2024 until 05/21/2025 [facility] Comment on above: 1 Occurrences starting 05/21/2024 until 05/21/2025 End: 10-02-2025 Echocardiography ECHO Cardiology Routine Clubbing of fingers 1 Occurrences starting 10/02/2024 until 10/02/2025 [facility] Work Phone: Comment on above: 1 Occurrences starting 10/02/2024 until 10/02/2025 End: 09-17-2025 EGD DIAGNOSTIC EGD DIAGNOSTIC Endoscopy Routine Gastroesophageal reflux disease, unspecified whether esophagitis present 1 Occurrences starting 09/17/2024 until 09/17/2025 [facility] Work Phone: Comment on above: 1 Occurrences starting 09/17/2024 until 09/17/2025 End: 11-17-2020 Haloperidol level Haloperidol level Lab Routine Once for 1 Occurrences starting 11/17/2020 until 11/17/2020 [facility] Work Phone: Comment on above: Once for 1 Occurrences starting 11/18/19 21 until 11/17/2020 Haloperidol level Haloperidol le gifty Lab Routine 11/17/2020 3:58 PM EDT [facility] Work Phone: Hemoglobin.gastroint estina l.lower [Presence] in Stool by Immunoassay FECAL OCCULT BLOOD TEST Lab Routine Failure to thrive in adult Ordered: 05/18/2021 [facility] Work Phone: Comment on above: Ordered: 05/18/2021 End: 06-20-2025 LUNG VOLUMES LUNG VOLUMES PFT Routine SOB (shortness of breath) Clubbing of fingers 1 Occurrences starting 05/21/2024 until 06/20/2025 [facility] Comment on above: 1 Occurrences starting 05/21/2024 until 06/20/2025 Magnesium [Mass/volu me] in Serum or Plasma Magnesium Lab Routine Daily until discontinued starting 11/23/2020, 3 completed [facility] Work Phone: Comment on above: Daily until discontinued starting 2020, 3 completed Oxygen therapy [[facility] Data Set] [facility] Work Phone: Comment on above: Daily until discontinued starting 2020 Daily until disconti nued starting 11/21/2020 End: 06-20-2025 SPIROMETRY WITH DILATOR IF OBSTRUCTED SPIROMETRY WITH DILATOR IF OBSTRUCTED PFT Routine SOB (shortness of breath) Clubbing of fingers 1 Occurrences starting 05/21/2024 until 06/20/2025 [facility] Comment on above: 1 Occurrences starting 05/21/2024 until 06/20/2025 Tissue Pathology bio psy report [facility] Work Phone: Comment on above: Release Upon Ordering for 1 Occurrences starting 10/17/2024, 1 completed End: 06-20-2025 XR Chest PA and Lateral XR CHEST 2V FRONTAL/LAT Radiology Routine SOB (shortness of breath) Clubbing of fingers 1 Occurrences starting 05/21/2024 until 06/20/2025 [facility] Comment on above: 1 Occurrences starting 05/21/2024 until 06/20/2025 XR Chest PA and Lateral XR CHEST 2V FRONTAL/LAT Radiology Routine SOB (shortness of breath) Clubbing of fingers 05/21/2024 11:52 AM EDT [facility] Immunizations Immunization Date Immunization Notes Care Provider Noble rodrigues 05-21-2024 pneumococcal conjuga te (PCV20) vaccine, 20 valent (PREVNAR 20) Luis Mcfadden MD Work Phone: [facility] 05-21-2024 pneumococcal Conjuga te, unspecified formulation Luis Mcfadden MD Work Phone: [facility] 10-08-2020 influenza, injectabl e, quadrivalent, contains preservative Luis Mcfadden MD Work Phone: [facility] 10-08-2020 influenza virus vacc ine, unspecified formulation Chris Doherty Matthew Work Phone: [facility] 09-10-2019 tetanus toxoid, redu olivier diphtheria toxoid, and acellular pertussis vaccine, adsorbed Ignacio Obando [facility] 12-15-2018 Influenza, injectabl e, [facility] Canine Kidney, preservative free, quadrivalent Luis Mcfadden MD Work Phone: [facility] 12-15-2018 influenza, seasonal, injectable Narcisa Haagen SCREEDMAN/LABORER.CLAMP JIG ASSEMBLER Work Phone: [facility] 12-22-2016 pneumococcal polysaccharide vaccine, 23 valent Narcisa Haagen SCREEDMAN/LABORER.CLAMP JIG ASSEMBLER Work Phone: [facility] 10-27-2016 influenza, injectabl e, quadrivalent, preservative free Luis Mcfadden MD Work Phone: [facility] 10-27-2016 influenza, seasonal, injectable Narcisa Haagen SCREEDMAN/LABORER.CLAMP JIG ASSEMBLER Work Phone: [facility] 09-25-2015 influenza, seasonal, injectable Narcisa Haagen SCREEDMAN/LABORER.CLAMP JIG ASSEMBLER Work Phone: [facility] Work Phone: 10-25-2014 influenza, injectabl e, quadrivalent, preservative free Luis Mcfadden MD Work Phone: [facility] 10-25-2014 influenza, seasonal, injectable Narcisa Haagen SCREEDMAN/LABORER.CLAMP JIG ASSEMBLER Work Phone: [facility] 11-22-2013 influenza, seasonal, injectable Narcisa Pacheco SCREEDMAN/LABORER.CLAMP JIG ASSEMBLER Work Phone: [facility] 10-30-2012 influenza virus vacc ine, unspecified formulation Narcisa Pacheco SCREEDMAN/LABORER.CLAMP JIG ASSEMBLER Work Phone: [facility] Payers Date Payer Category Payer Medicare [employer] [id number] 2022-2022 [address] [place] [address] Medicare HMO [id number] 2022 Medicaid [id number] 2019 Unknown [place] [place] xxxDING 2019-Present Indemnity xxxDING [id number] 2019 Medicaid [id number] 2017 Self-pay 2017 Unknown [id number] 2017 Unknown [employer] [facility] MEDICAID xxxxxxxxxxx 2017-Present [phone] CLAIMS DEPARTMENT [address] [place] [address] xxxxxxxxxxx [id number] 2017 Unknown [id number] Unknown [id number] Unknown [id number] Social History Date Type Detail Facility Start: 05-12-2016 End: 06-24-2019 Tobacco smoking status NHIS Unknown if ever smoked Kayley Elixr [facility] Start: 05-12-2016 End: 05-21-2024 Alcohol intake Current non-drinker of alcohol (finding) [facility] Start: 1970 Sex Assigned At Not on file M [facility] Start: 07-23-2019 End: 11-15-2023 Tobacco use and exposure Current user [facility] Start: 05-05-2021 End: 05-15-2021 Exposure to SARS-CoV-2 (event) Unable to assess Kayley Elixr [facility] Start: 09-12-2019 History SDOH Financial 5 [facility] Start: 09-12-2019 History SDOH Food Worry 1 [facility] Start: 09-12-2019 History SDOH Transpo rt Med 2 [facility] Exposure to SARS-CoV -2 (event) Not sure [facility] Start: 09-10-1989 End: 05-23-2024 Tobacco smoking status NHIS Current every day smoker [facility] Start: 09-10-1989 History of tobacco use Cigarette Smo ker [facility] Work Phone: Start: 03-31-2020 End: 11-22-2023 Cigarettes smoked current (pack per day) - Reported [facility] Start: 11-25-2020 End: 12-05-2020 Tobacco use and exposure Never used [facility] Start: 09-10-2016 End: 11-15-2023 Tobacco Comment CHEW TOBACCO 1 X EVERY 2 MONTHS [facility] Start: 05-18-2021 End: 11-22-2023 Gender identity Not on file [facility] Start: 01-09-2012 How hard is it for y ou to pay for the very basics like food, housing, medical care, and heating Not hard at all [facility] (I/We) worried whemir er (my/our) food would run out before (I/we) got money to buy more. Never true [facility] Start: 05-23-2024 Tobacco use and exposure Former smokeless tobacco user [facility] Start: 05-23-2024 End: 10-02-2024 Alcoholic beverage intake Ex-drinker (finding) [facility] [facility] Start: 05-23-2024 Tobacco Comment CHEW TOBACCO 1 X EVERY 2 MONTHS 05/08/24: quit [facility] Functional Status Date Assessment Result Facility 09-18-2019 Are you deaf, or do you have serious difficulty hearing No 09/18/2019 5:18 PM EDT Kristyn Izquierdo RN No [facility] 09-18-2019 Are you blind, or do you have serious difficulty seeing, even when wearing glasses No 09/18/2019 5:18 PM EDT Kristyn Izquierdo, TRACI No [facility] 09-18-2019 Do you have serious difficulty walking or climbing stairs No 09/18/2019 5:18 PM EDT Kristyn Izquierdo, TRACI No [facility] 09-18-2019 Do you have difficul ty dressing or bathing No 09/18/2019 5:18 PM EDT Kristyn Izquierdo RN No [facility] 09-18-2019 Because of a physica l, mental, or emotional condition, do you have difficulty doing errands alone such as visiting a physician's office or shopping No 09/18/2019 5:18 PM EDT Kristyn Izquierdo RN No [facility] Mental Status Date Assessment Result Facility 09-18-2019 Because of a physica l, mental, or emotional condition, do you have serious difficulty concentrating, remembering, or making decisions No 09/18/2019 5:18 PM EDT Kristyn Izquierdo RN No [facility] Clinical Notes 09-11-2019 to 12-18-2024 Chapis Markham MD - 10/17/2024 1:00 PM Chapis Longoria MD - 10/17/2024 1:00 PM Chapis Longoria MD - 10/17/2024 1:00 PM Chapis Longoria MD - 10/17/2024 1:00 PM EDT Note Date & Type Note Facility 12-18-2024 Note HNO ID: [id number] Author: KATHARINE MCINTYRE RT(R) Service: ? Author Type: Prison Psychiatrist Type: Progress Notes Filed: 12/18/2024 14:14 Note Text: Radiology Service Progress Note DATE OF SERVICE: December 18, 2024 TIME: 2:13 PM PATIENT IDENTITY VERIFICATION COMPLETED USING TWO (2) STANDARD IDENTIFIERS: Name and Date of confirmed by patient verbally. FALL SCREENING: Has the patient had 2 falls in the last year or 1 fall with injury or currently using an Ambulatory Assistive Device (Walker, Cane, Wheelchair, Crutches, etc.)? No PATIENT GENDER DATA: Assigned male at PATIENT RELEVANT IMPLANT DATA REVIEWED: Yes PATIENT PRESENTS WITH AN IMPLANTABLE OR ATTACHED VESSEL SLAGMAN: No ALLERGIES: Reviewed and unchanged CONTRAST ALLERGY: NO. EXAM: CT -CONTRAST INDUCED NEPHROPATHY RISK FACTORS: Not applicable CREATININE: Creatinine Date Value Ref Range Status 05/21/2024 0.76 0.73 - 1.22 mg/dL Final 12/02/2020 0.65 (L) 0.73 - 1.22 mg/dL Final 09/13/2019 0.60 (L) 0.73 - 1.22 mg/dL Final Estimated Glomerular Filtration Rate Date Value Ref Range Status 05/21/2024 107 >=60 mL/min/1.73m? Final Comment: Estimated Glomerular Filtration Rate (eGFR) is calculated using the 2020 CKD-EPI creatinine equation. This equation utilizes serum creatinine, sex, and age as parameters. The creatinine assay has traceable calibration to isotope dilution-mass spectrometry. Refer to KDIGO guidelines for clinical interpretation. In patients with unstable renal function, e.g. those with acute kidney injury, the eGFR may not accurately reflect actual GFR. eGFR- Date Value Ref Range Status 12/02/2020 >60 Final P.O.C.T. RESULTS: POC done: Yes, See Lab Tab December 18, 2024 TREATMENT: N/A PERIPHERAL IV DATA: Ambulatory: A peripheral IV was started in the Left antecubital site with a Angio cath: 22 gauge. RADIOLOGY DEPARTMENT: CT; Exam(s) Completed: Abdomen/Pelvis . Anesthesia: No SIGNATURE: RT Joseph(R) PATIENT NAME: Fadi Alexandre DATE: December 18, 2024 TIME: 2:13 PM [facility] 12-14-2024 Note HNO ID: [id number] Author: ANDREW ZHANG MD Service: ? Author Type: Physician Type: Progress Notes Filed: 12/14/2024 14:21 Note Text: Chief Complaint Patient presents with: Urinary Frequency: Testicular pain HPI Fadi Alexandre is a 54 year old male who presents here today for an acute visit. Established patient of Dr. Donnybrook, new to this office here today for an acute visit. Patient complaining of b/l testicle pain and b/l flank pain. Had frequent urination starting yesterday, denies any other urinary complaints. Worried about his kidney's. Denies any fever, and no concern about STD. Fadi Alexandre is a 54-year-old male with a history of TBI, hiatal hernia, and acid reflux, presenting with bilateral flank pain. He is accompanied by his mother, who provides additional history. Fadi reports constant bilateral flank pain located over the kidney areas. The pain is typically rated 4/10 at baseline, worsening to 6-8/10 with increased heart rate. He is unsure whether the pain causes his heart rate to increase or if the elevated heart rate worsens the pain. He denies any prior history of kidney stones or similar pain episodes. Patient also c/o bilateral testicular pain and urien frequency. He denies beingsexually active. No skin lesions in the genital region, dysuria, hemturia or purulant discharge. He reports significant anxiety related to his TBI and is currently taking Xanax for this. He also reports severe acid reflux and is under the care of a police liaison. He has an upcoming abdominal CT scan scheduled for next week. He is currently taking amoxicillin for a dental infection and has a dental extraction scheduled for Tuesday. He reports a prior penicillin allergy that has since resolved. Past medical history, appointments, medications, allergies reviewed. Previous Medical History PAST MEDICAL HISTORY Diagnosis Date Chronic pain dismissed from pain management, due to inconsistant drug screens Fall Intracranial bleed (HCC) after fall Marijuana use positive drug screen by Dr. Martinez Organic mood disorder since fall, seeing psychiatry Trauma multiple fractures Previous Surgical History PAST SURGICAL HISTORY Procedure Laterality Date EGD W/O [facility] SPEC VARICIES INJ 10/17/2024 FOOT SURGERY HX Left 2016 removal of wart PAST SURGICAL HISTORY OF 2011 trach, peg, multi-trauma/fall, hospitalized [place]-100 days Family History FAMILY HISTORY Problem Relation Age of Onset Osteoporosis Mother other (CHF) Mother Hypertension Mother Arthritis Mother other (Thyroid disease) Mother other (a fib) Mother Diabetes Father Heart Father No Known Problems Sister other (suicide) Brother Hypertension Brother other (Heart condition) Maternal Grandmother other (Heart condition) Maternal Grandfather No Known Problems Paternal Grandmother No Known Problems Paternal Grandfather Anesthesia Problems No Family History Patient Allergies ALLERGIES Allergen Reactions Zyprexa [Olanzapine] Rash Current Medications Current Outpatient Medications on File Prior to Visit Medication Sig sucralfate (CARAFATE) 1 gram tablet Take 1 tablet by mouth four times daily. famotidine (PEPCID) 20 mg tablet Take 1 tablet by mouth daily at bedtime. atorvastatin (LIPITOR) 20 mg tablet Take 1 tablet by mouth once daily. Cholecalciferol, Vitamin D3, 125 mcg (5,000 unit) cap Take 1 capsule by mouth once daily. pantoprazole DR (PROTONIX) 40 mg tablet Take 1 tablet by mouth once daily. doxepin capsule 50 mg Take 50 mg by mouth daily at bedtime. traZODone (DESYREL) 100 mg tablet Take 100 mg by mouth daily at bedtime. VENLAFAXINE ER 150 MG TABLET,EXTENDED RELEASE 24 HR Take 150 mg by mouth once daily. ALPRAZolam (XANAX) 0.5 mg tablet Take 0.5 mg by mouth three times daily. No current facility-administered medications on file prior to visit. Social History SOCIAL HISTORY[1] Review of Symptoms REVIEW OF SYSTEMS SEE HPI EXAM: BP 114/82 (BP Site: Right Arm, BP Position: Sitting, BP Cuff Size: Regular Adult) Pulse 78 Temp 36.4 ?C (97.5 ?F) (Tympanic) Resp 16 Wt 74.5 kg (164 lb 3.2 oz) BMI 24.25 kg/m? General Appearance: Well appearing, alert, in no acute distress, well-hydrated, well nourished. and anxious. Back:has mild discomfort in the right flank area but no significant pain and no notable pain reaction to percussion. Abdomen: Normal abdominal exam, Abdomen soft, non-tender. Bowel sounds normal. No masses, organomegaly. Genitalia: Penis normal. No urethral discharge. Scrotum normal to palpation but did have mild tenderness over the right epididymis. No masses. No hernia.. Health Maintenance List HIV Screening Never done Hepatitis B Vaccine(1 of 3 - 19+ 3-dose series) Never done Lung Cancer Screening due on 2021 Shingrix Vaccine(1 of 2) Never done Covid-19 Vaccine(2024- season) Never done Depressio (more content not included)... [place] [id number] Note HNO ID: [id number] Author: ARIEL KIM APRN.[employer] Service: ? Author Type: Nurse Practitioner Type: Progress Notes Filed: 12/03/2024 11:01 Note Text: [facility] New Patient Consult December 03, 2024 CHIEF COMPLAINT: Patient presents with: Procedure Follow Up This consult was requested by Luis Mcfadden MD for an opinion regarding GERD, abdominal pain. My final recommendations will be communicated to the requesting health care provider by way of the shared medical record for internal providers or letter via the [employer] for external providers. HPI: Fadi Alexandre is a 54 year old male who presents for Procedure Follow Up. Abdominal Pain: - Severe abdominal pain with eating and thinking about eating. He tries to vomit when he eats. Hurts to eat. - Pain localized below the rib cage, described as higher than the stomach. - Associated with nausea and emesis after every meal. - Denies hematochezia or melena. - Regular bowel movements, occurring a few times a day. - Taking pantoprazole and famotidine. - History of PEG tube placement in 2012, removed in 2013. - Accident in November 2012. Patient states that he had TBI, fell off a roof from 30 feet up. EGD: 10/17/24: Findings: The duodenal bulb, first portion of the duodenum and second portion of the duodenum were normal. Radially Striped mildly erythematous mucosa without bleeding was found in the gastric antrum. Biopsies were taken with a cold forceps for Helicobacter pylori testing and at erythematous site. Verification of patient identification for the specimen was done by the nurse. Estimated blood loss was minimal. A small hiatal hernia was present. Biopsies were taken with a cold forceps for histology at GE junction. Verification of patient identification for the specimen was done by the nurse. Estimated blood loss was minimal. Impression: - Normal duodenal bulb, first portion of the duodenum and second portion of the duodenum. - Erythematous mucosa in the antrum. Biopsied. - Small hiatal hernia. Biopsied at GE junction. Component FINAL DIAGNOSIS A. Stomach, antrum, biopsy: - Gastric antral mucosa with no significant diagnostic abnormality. B. Stomach, body, biopsy: - Detached fragments of foveolar epithelium, no significant diagnostic abnormality. C. Esophagogastric junction, biopsy: - Reactive squamous mucosa and gastric cardia-type mucosa, negative for intestinal metaplasia. Record Review: [facility] / Outside records reviewed. PAST MEDICAL HISTORY Diagnosis Date Chronic pain dismissed from pain management, due to inconsistant drug screens Fall Intracranial bleed (HCC) after fall Marijuana use positive drug screen by Dr. Martinez Organic mood disorder since fall, seeing psychiatry Trauma multiple fractures PAST SURGICAL HISTORY Procedure Laterality Date EGD W/O [facility] SPEC VARICIES INJ 10/17/2024 FOOT SURGERY HX Left 2016 removal of wart PAST SURGICAL HISTORY OF 2011 trach, peg, multi-trauma/fall, hospitalized [place]-100 days Allergies: ALLERGIES Allergen Reactions Zyprexa [Olanzapine] Rash Medications: famotidine (PEPCID) 20 mg tablet Take 1 tablet by mouth daily at bedtime. atorvastatin (LIPITOR) 20 mg tablet Take 1 tablet by mouth once daily. Cholecalciferol, Vitamin D3, 125 mcg (5,000 unit) cap Take 1 capsule by mouth once daily. pantoprazole DR (PROTONIX) 40 mg tablet Take 1 tablet by mouth once daily. doxepin capsule 50 mg Take 50 mg by mouth daily at bedtime. traZODone (DESYREL) 100 mg tablet Take 100 mg by mouth daily at bedtime. VENLAFAXINE ER 150 MG TABLET,EXTENDED RELEASE 24 HR Take 150 mg by mouth once daily. ALPRAZolam (XANAX) 0.5 mg tablet Take 0.5 mg by mouth three times daily. FAMILY HISTORY Problem Relation Age of Onset Osteoporosis Mother other (CHF) Mother Hypertension Mother Arthritis Mother other (Thyroid disease) Mother other (a fib) Mother Diabetes Father Heart Father No Known Problems Sister other (suicide) Brother Hypertension Brother other (Heart condition) Maternal Grandmother other (Heart condition) Maternal Grandfather No Known Problems Paternal Grandmother No Known Problems Paternal Grandfather Anesthesia Problems No Family History Employer And Job Title: None on file Years Of Education Completed: Not specified Marital Status: Single SOCIAL HISTORY[1] Review of Systems: Review of Systems Constitutional: Positive for appetite change and fatigue. HENT: Positive for hearing loss and trouble swallowing. Respiratory: Positive for chest tightness and shortness of breath. Cardiovascular: Positive for chest pain. Gastrointestinal: Positive for abdominal pain. Heartburn All other systems reviewed and are negative. Gastrointestinal: (+) epigastric pain, (+) vomiting, (?) nausea, (?) bowel habit changes Physical Examination: Pulse 90 Ht 5' 9 (1.75m) W (more content not included)... [facility] 11-02-2024 Note HNO ID: [id number] Author: KATHARINE MCINTYRE RT(R) Service: ? Author Type: Prison Psychiatrist Type: Progress Notes Filed: 11/02/2024 15:28 Note Text: Radiology Service Progress Note DATE OF SERVICE: November 02, 2024 TIME: 3:27 PM PATIENT IDENTITY VERIFICATION COMPLETED USING TWO (2) STANDARD IDENTIFIERS: Name and Date of confirmed by patient verbally. FALL SCREENING: Has the patient had 2 falls in the last year or 1 fall with injury or currently using an Ambulatory Assistive Device (Walker, Cane, Wheelchair, Crutches, etc.)? No PATIENT GENDER DATA: Assigned male at PATIENT RELEVANT IMPLANT DATA REVIEWED: Yes PATIENT PRESENTS WITH AN IMPLANTABLE OR ATTACHED VESSEL SLAGMAN: No ALLERGIES: Reviewed and unchanged CONTRAST ALLERGY: NO. EXAM: CT -CONTRAST INDUCED NEPHROPATHY RISK FACTORS: Not applicable CREATININE: Creatinine Date Value Ref Range Status 05/21/2024 0.76 0.73 - 1.22 mg/dL Final 12/02/2020 0.65 (L) 0.73 - 1.22 mg/dL Final 09/13/2019 0.60 (L) 0.73 - 1.22 mg/dL Final Estimated Glomerular Filtration Rate Date Value Ref Range Status 05/21/2024 107 >=60 mL/min/1.73m? Final Comment: Estimated Glomerular Filtration Rate (eGFR) is calculated using the 2020 CKD-EPI creatinine equation. This equation utilizes serum creatinine, sex, and age as parameters. The creatinine assay has traceable calibration to isotope dilution-mass spectrometry. Refer to KDIGO guidelines for clinical interpretation. In patients with unstable renal function, e.g. those with acute kidney injury, the eGFR may not accurately reflect actual GFR. eGFR- Date Value Ref Range Status 12/02/2020 >60 Final P.O.C.T. RESULTS: POC done: Yes, See Lab Tab November 02, 2024 TREATMENT: N/A PERIPHERAL IV DATA: Ambulatory: A peripheral IV was started in the Left antecubital site with a Angio cath: 22 gauge. RADIOLOGY DEPARTMENT: CT; Exam(s) Completed: Brain . Anesthesia: No SIGNATURE: RT Joseph(R) PATIENT NAME: Fadi Alexandre DATE: November 02, 2024 TIME: 3:27 PM [facility] 10-27-2024 Note HNO ID: [id number] Author: LUIS MCFADDEN MD Service: ? Author Type: Physician Type: Progress Notes Filed: 10/27/2024 12:28 Note Text: The patient is a 54-year-old male with GERD and hyperlipidemia, presenting for follow-up on reflux, lipid management, and evaluation of persistent headaches. HPI GERD: - Persistent reflux symptoms. - Recent EGD by Dr. Markham revealed a hiatal hernia and erythematous mucosa in the antrum of the stomach. - Pathology report showed reactive squamous mucosa and gastrocardiac type mucosa, negative for intestinal metaplasia. - Currently taking Protonix. - Fadi reports significant anxiety related to reflux symptoms. Polycythemia: - Previous hemoglobin level of 19 g/dL. - Recent labs showed elevated carboxyhemoglobin and mildly elevated WBC count. - Fadi is a smoker, currently smoking 5-6 cigarettes per day, reduced from 10-15 cigarettes per day. Anxiety: - History of anxiety, currently under psychiatric care. - Next psychiatry appointment scheduled for December 13. - Fadi reports increased anxiety related to reflux symptoms and headaches. Headaches: - Persistent and severe headaches. - Previous facial bone X-ray was negative. - MRI was ordered but canceled by patient. refuses to do one. MEDICATIONS: Current Outpatient Medications Medication Sig atorvastatin (LIPITOR) 20 mg tablet Take 1 tablet by mouth once daily. Cholecalciferol, Vitamin D3, 125 mcg (5,000 unit) cap Take 1 capsule by mouth once daily. pantoprazole DR (PROTONIX) 40 mg tablet Take 1 tablet by mouth once daily. doxepin capsule 50 mg Take 50 mg by mouth daily at bedtime. traZODone (DESYREL) 100 mg tablet Take 100 mg by mouth daily at bedtime. VENLAFAXINE ER 150 MG TABLET,EXTENDED RELEASE 24 HR Take 150 mg by mouth once daily. ALPRAZolam (XANAX) 0.5 mg tablet Take 0.5 mg by mouth three times daily. famotidine (PEPCID) 20 mg tablet Take 1 tablet by mouth daily at bedtime. iv contrast (will be provided with radiology test) CT Brain WO/W - No IV access, insert saline lock prior to the sedation, infusion, injection for imaging exam. Discontinue saline lock post exam. If Pt. has a central line or IVAD, may access for administration according to line specific nursing protocol. Once exam is complete flush line and de-access according to line specific nursing protocol in the CT contrast administration guidelines link. No current facility-administered medications for this visit. ALLERGIES: ALLERGIES Allergen Reactions Zyprexa [Olanzapine] Rash PAST MEDICAL HISTORY Diagnosis Date Chronic pain dismissed from pain management, due to inconsistant drug screens Fall Intracranial bleed (HCC) after fall Marijuana use positive drug screen by Dr. Martinez Organic mood disorder since fall, seeing psychiatry Trauma multiple fractures PAST SURGICAL HISTORY Procedure Laterality Date FOOT SURGERY HX Left 2016 removal of wart PAST SURGICAL HISTORY OF 2011 trach, peg, multi-trauma/fall, hospitalized [place]-100 days FAMILY HISTORY Problem Relation Age of Onset Osteoporosis Mother other (CHF) Mother Hypertension Mother Arthritis Mother other (Thyroid disease) Mother other (a fib) Mother Diabetes Father Heart Father No Known Problems Sister other (suicide) Brother Hypertension Brother other (Heart condition) Maternal Grandmother other (Heart condition) Maternal Grandfather No Known Problems Paternal Grandmother No Known Problems Paternal Grandfather Anesthesia Problems No Family History SOCIAL HISTORY[1] Reviewed current medications, allergies, past medical history, surgical history, family history and social history today. REVIEW OF SYSTEMS Head: (+) headaches Cardiovascular: (-) edema Respiratory: (-) cough, (-) wheezing Gastrointestinal: (+) heartburn, (-) bowel problems, (-) hematochezia, (-) melena Psychiatric: (+) anxiety HEALTH MAINTENANCE: Reviewed health maintenance issues today and recommended the following in detail. Depression Screening due on 11/21/2024 Anxiety Screening due on 11/21/2024 LAB REVIEWED: (Today) Blood Work: - Lipid Panel: Cholesterol 241 mg/dL, elevated LDL - Carboxyhemoglobin: Elevated - WBC: Mildly elevated - Hemoglobin: Elevated (less than previously noted 19) Chest X-ray: Negative X-ray of Facial Bones: Negative for metallic foreign body PFTs: No definite obstruction, suboptimal cooperation EGD: Hiatal hernia with erythematous mucosa in the antrum. Pathology: Reactive squamous mucosa and gastrocardiac type mucosa, negative for intestinal metaplasia VITALS: BP 104/68 Pulse 84 Wt 75.3 kg (166 lb) SpO2 95% BMI 24.51 kg/m? Last 4 Encounter Wt Readings: Date: Wt: 10/27/2024 75.3 kg (166 lb) 10/17/2024 77.6 kg (171 lb) 10/02/2024 77.7 kg (171 lb 6.4 oz) 10/02/2024 77.6 kg (171 lb) PHYSICAL EXAMINATION: General: Alert, well-developed, no acute (more content not included)... [facility] 10-17-2024 Attending History and physical note UPDATED HISTORY AND PHYSICAL EXAMINATION SERVICE DATE: 10/17/2024 SERVICE TIME: 11:55 Participation of a fellow, resident, medical student, or advanced practice provider student in performing the sensitive examination was discussed with the patient or authorized dealer compliance representative. The patient or authorized dealer compliance representative has agreed to proceed with the sensitive examination. PHYSICAL EXAM MUST BE COMPLETED ON ADMISSION The History and Physical (completed in the past 30 days) has been reviewed and the patient has been examined. The contents accurately reflect the patient's condition with the following additions or revisions since the H&P was completed. Examination indicates no changes. This H&P can be found in the Electronic Medical Record . SIGNATURE: Chapis Markham MD PATIENT NAME: Fadi Alexandre DATE: October 17, 2024 TIME: 11:55 AM Source Note - Chapis Markham MD - 10/17/2024 1:00 PM EDT HISTORY AND PHYSICAL Fadi Alexandre : 1970 REFERRING PHYSICIAN: Luis Mcfadden [address] [facility] [id number] CHIEF COMPLAINT: Patient presents with: Consult HPI: Fadi is a 54 year old male referred for endoscopy. Fadi notes heartburn. -admits to a large amount of coffee consumption -PCP started on protonix and it is not helping Fadi denies dysphagia. Fadi denies a history of ulcers/ peptic ulcer disease. 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 Dr Mcfadden recently ordered PFTs & an ECHO. will wait for these results prior to scheduling Fadi expressed frustration stating I thought I was here for my breathing. He mentioned multiple times he does not want to do the scopes. Fadi has not undergone prior endoscopy. He refused scheduling for colonoscopy and only scheduled for EGD CURRENT MEDICATIONS Current Outpatient Medications Medication Sig Cholecalciferol, Vitamin D3, 125 mcg (5,000 unit) cap Take 1 capsule by mouth once daily. pantoprazole DR (PROTONIX) 40 mg tablet Take 1 tablet by mouth once daily. doxepin capsule 50 mg Take 50 mg by mouth daily at bedtime. traZODone (DESYREL) 100 mg tablet Take 100 mg by mouth daily at bedtime. VENLAFAXINE ER 150 MG TABLET,EXTENDED RELEASE 24 HR Take 150 mg by mouth once daily. ALPRAZolam (XANAX) 0.5 mg tablet Take 0.5 mg by mouth three times daily. No current facility-administered medications for this visit. ALLERGIES: Zyprexa [Olanzapine] PAST MEDICAL HISTORY PAST MEDICAL HISTORY Diagnosis Date Chronic pain dismissed from pain management, due to inconsistant drug screens Fall Intracranial bleed (HCC) after fall Marijuana use positive drug screen by Dr. Martinez Organic mood disorder since fall, seeing psychiatry Trauma multiple fractures PAST SURGICAL HISTORY PAST SURGICAL HISTORY Procedure Laterality Date FOOT SURGERY HX Left 2016 removal of wart PAST SURGICAL HISTORY OF 2011 trach, peg, multi-trauma/fall, hospitalized [place]-100 days FAMILY HISTORY FAMILY HISTORY Problem Relation Age of Onset Osteoporosis Mother other (CHF) Mother Hypertension Mother Arthritis Mother other (Thyroid disease) Mother Diabetes Father Heart Father No Known Problems Sister other (suicide) Brother Hypertension Brother other (Heart condition) Maternal Grandmother other (Heart condition) Maternal Grandfather No Known Problems Paternal Grandmother No Known Problems Paternal Grandfather SOCIAL HISTORY Social History Tobacco Use Smoking status: Every Day Current packs/day: 0.75 Average packs/day: 0.8 packs/day for 34.7 years (26.0 ttl pk-yrs) Types: Cigarettes Start date: 09/10/1989 Smokeless tobacco: Former Tobacco comments: CHEW TOBACCO 1 X EVERY 2 MONTHS 05/08/24: quit Vaping Use Vaping status: Never Used Substance Use Topics Alcohol use: Not Currently Drug use: Yes Frequency: 7.0 times per week Types: Marijuana Comment: [address] last used no h/o rehab or detox REVIEW OF SYMPTOMS: Denies chest pain Denies shortness of breath PHYSICAL EXAMINATION: General: The patient is 54 year old, male well nourished, well hydrated in no acute distress. The patient is oriented to time, place, and person. VITALS: Blood pressure 112/78, pulse 96, temperature 36.7 C (98 F), temperature source Temporal, resp. rate 14, height 176.5 cm (5' 9.5), weight 76.2 kg (168 lb), SpO2 96%. Body mass index is 24.45 kg/m . HEENT: Normal cephalic, ataumatic, pupils are equally round, sclera are anicteric, mucous membranes are moist, oropharynx is clear. Neck has no masses, asymmetry or lymphadenopathy. Respiratory: Clear to auscultation and percussion. Normal respiratory excursion and pattern. Cardiac: Examination is regular rate and rhythm. Normal S1/S2 Abdominal exam: Soft, nontender, with no palpable masses. No hepatosplenomegaly. No palpable hernias. Extremities: + clubbing, cyanosis or edema. No adenopathy. Assessment IMPRESSION: GERD Discussion/Plan/Recommendations: I have discussed the above with the patient. I have offered EGD, possible biopsies I have explained the procedure to the patient. I have counseled the patient as to the risks of the procedure, including but not limited to: infection, bleeding, injury to any intrabdominal organs such as liver/spleen, perforation of the GI tract, inability to complete the procedure, complications of anesthesia, etc. - the patient understands. Patient is waiting in the preoperative area and very frustrated with being in the hospital The patient wishes to proceed. I have answered all questions to the patient s satisfaction and the patient has no further questions. . Diagnoses: (K21.9) Gastroesophageal reflux disease without esophagitis (Z12.11) Screening for colon cancer [facility] Work Phone: 10-17-2024 History and physical note HISTORY AND PHYSICAL Fadi Alexandre : 1970 REFERRING PHYSICIAN: Luis Mcfadden [address] [facility] [id number] CHIEF COMPLAINT: Patient presents with: Consult HPI: Fadi is a 54 year old male referred for endoscopy. Fadi notes heartburn. -admits to a large amount of coffee consumption -PCP started on protonix and it is not helping Fadi denies dysphagia. Fadi denies a history of ulcers/ peptic ulcer disease. 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 Dr Mcfadden recently ordered PFTs & an ECHO. will wait for these results prior to scheduling Fadi expressed frustration stating I thought I was here for my breathing. He mentioned multiple times he does not want to do the scopes. Fadi has not undergone prior endoscopy. He refused scheduling for colonoscopy and only scheduled for EGD CURRENT MEDICATIONS Current Outpatient Medications Medication Sig Cholecalciferol, Vitamin D3, 125 mcg (5,000 unit) cap Take 1 capsule by mouth once daily. pantoprazole DR (PROTONIX) 40 mg tablet Take 1 tablet by mouth once daily. doxepin capsule 50 mg Take 50 mg by mouth daily at bedtime. traZODone (DESYREL) 100 mg tablet Take 100 mg by mouth daily at bedtime. VENLAFAXINE ER 150 MG TABLET,EXTENDED RELEASE 24 HR Take 150 mg by mouth once daily. ALPRAZolam (XANAX) 0.5 mg tablet Take 0.5 mg by mouth three times daily. No current facility-administered medications for this visit. ALLERGIES: Zyprexa [Olanzapine] PAST MEDICAL HISTORY PAST MEDICAL HISTORY Diagnosis Date Chronic pain dismissed from pain management, due to inconsistant drug screens Fall Intracranial bleed (HCC) after fall Marijuana use positive drug screen by Dr. Martinez Organic mood disorder since fall, seeing psychiatry Trauma multiple fractures PAST SURGICAL HISTORY PAST SURGICAL HISTORY Procedure Laterality Date FOOT SURGERY HX Left 2016 removal of wart PAST SURGICAL HISTORY OF 2011 trach, peg, multi-trauma/fall, hospitalized [place]-100 days FAMILY HISTORY FAMILY HISTORY Problem Relation Age of Onset Osteoporosis Mother other (CHF) Mother Hypertension Mother Arthritis Mother other (Thyroid disease) Mother Diabetes Father Heart Father No Known Problems Sister other (suicide) Brother Hypertension Brother other (Heart condition) Maternal Grandmother other (Heart condition) Maternal Grandfather No Known Problems Paternal Grandmother No Known Problems Paternal Grandfather SOCIAL HISTORY Social History Tobacco Use Smoking status: Every Day Current packs/day: 0.75 Average packs/day: 0.8 packs/day for 34.7 years (26.0 ttl pk-yrs) Types: Cigarettes Start date: 09/10/1989 Smokeless tobacco: Former Tobacco comments: CHEW TOBACCO 1 X EVERY 2 MONTHS 05/08/24: quit Vaping Use Vaping status: Never Used Substance Use Topics Alcohol use: Not Currently Drug use: Yes Frequency: 7.0 times per week Types: Marijuana Comment: [address] drugs last used no h/o rehab or detox REVIEW OF SYMPTOMS: Denies chest pain Denies shortness of breath PHYSICAL EXAMINATION: General: The patient is 54 year old, male well nourished, well hydrated in no acute distress. The patient is oriented to time, place, and person. VITALS: Blood pressure 112/78, pulse 96, temperature 36.7 C (98 F), temperature source Temporal, resp. rate 14, height 176.5 cm (5' 9.5), weight 76.2 kg (168 lb), SpO2 96%. Body mass index is 24.45 kg/m . HEENT: Normal cephalic, ataumatic, pupils are equally round, sclera are anicteric, mucous membranes are moist, oropharynx is clear. Neck has no masses, asymmetry or lymphadenopathy. Respiratory: Clear to auscultation and percussion. Normal respiratory excursion and pattern. Cardiac: Examination is regular rate and rhythm. Normal S1/S2 Abdominal exam: Soft, nontender, with no palpable masses. No hepatosplenomegaly. No palpable hernias. Extremities: + clubbing, cyanosis or edema. No adenopathy. Assessment IMPRESSION: GERD Discussion/Plan/Recommendations: I have discussed the above with the patient. I have offered EGD, possible biopsies I have explained the procedure to the patient. I have counseled the patient as to the risks of the procedure, including but not limited to: infection, bleeding, injury to any intrabdominal organs such as liver/spleen, perforation of the GI tract, inability to complete the procedure, complications of anesthesia, etc. - the patient understands. Patient is waiting in the preoperative area and very frustrated with being in the hospital The patient wishes to proceed. I have answered all questions to the patient s satisfaction and the patient has no further questions. . Diagnoses: (K21.9) Gastroesophageal reflux disease without esophagitis (Z12.11) Screening for colon cancer [facility] 10-17-2024 History and physical note UPDATED HISTORY AND PHYSICAL EXAMINATION SERVICE DATE: 10/17/2024 SERVICE TIME: 11:55 Participation of a fellow, resident, medical student, or advanced practice provider student in performing the sensitive examination was discussed with the patient or authorized dealer compliance representative. The patient or authorized dealer compliance representative has agreed to proceed with the sensitive examination. PHYSICAL EXAM MUST BE COMPLETED ON ADMISSION The History and Physical (completed in the past 30 days) has been reviewed and the patient has been examined. The contents accurately reflect the patient's condition with the following additions or revisions since the H&P was completed. Examination indicates no changes. This H&P can be found in the Electronic Medical Record . SIGNATURE: Chapis Markham MD PATIENT NAME: Fadi Alexandre DATE: October 17, 2024 TIME: 11:55 AM Source Note - Chapis Markham MD - 10/17/2024 1:00 PM EDT HISTORY AND PHYSICAL Fadi Alexandre : 1970 REFERRING PHYSICIAN: Luis Mcfadden [address] [facility] [id number] CHIEF COMPLAINT: Patient presents with: Consult HPI: Fadi is a 54 year old male referred for endoscopy. Fadi notes heartburn. -admits to a large amount of coffee consumption -PCP started on protonix and it is not helping Fadi denies dysphagia. Fadi denies a history of ulcers/ peptic ulcer disease. 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 Dr Mcfadden recently ordered PFTs & an ECHO. will wait for these results prior to scheduling Fadi expressed frustration stating I thought I was here for my breathing. He mentioned multiple times he does not want to do the scopes. Fadi has not undergone prior endoscopy. He refused scheduling for colonoscopy and only scheduled for EGD CURRENT MEDICATIONS Current Outpatient Medications Medication Sig Cholecalciferol, Vitamin D3, 125 mcg (5,000 unit) cap Take 1 capsule by mouth once daily. pantoprazole DR (PROTONIX) 40 mg tablet Take 1 tablet by mouth once daily. doxepin capsule 50 mg Take 50 mg by mouth daily at bedtime. traZODone (DESYREL) 100 mg tablet Take 100 mg by mouth daily at bedtime. VENLAFAXINE ER 150 MG TABLET,EXTENDED RELEASE 24 HR Take 150 mg by mouth once daily. ALPRAZolam (XANAX) 0.5 mg tablet Take 0.5 mg by mouth three times daily. No current facility-administered medications for this visit. ALLERGIES: Zyprexa [Olanzapine] PAST MEDICAL HISTORY PAST MEDICAL HISTORY Diagnosis Date Chronic pain dismissed from pain management, due to inconsistant drug screens Fall Intracranial bleed (HCC) after fall Marijuana use positive drug screen by Dr. Martinez Organic mood disorder since fall, seeing psychiatry Trauma multiple fractures PAST SURGICAL HISTORY PAST SURGICAL HISTORY Procedure Laterality Date FOOT SURGERY HX Left 2016 removal of wart PAST SURGICAL HISTORY OF 2011 trach, peg, multi-trauma/fall, hospitalized [place]-100 days FAMILY HISTORY FAMILY HISTORY Problem Relation Age of Onset Osteoporosis Mother other (CHF) Mother Hypertension Mother Arthritis Mother other (Thyroid disease) Mother Diabetes Father Heart Father No Known Problems Sister other (suicide) Brother Hypertension Brother other (Heart condition) Maternal Grandmother other (Heart condition) Maternal Grandfather No Known Problems Paternal Grandmother No Known Problems Paternal Grandfather SOCIAL HISTORY Social History Tobacco Use Smoking status: Every Day Current packs/day: 0.75 Average packs/day: 0.8 packs/day for 34.7 years (26.0 ttl pk-yrs) Types: Cigarettes Start date: 09/10/1989 Smokeless tobacco: Former Tobacco comments: CHEW TOBACCO 1 X EVERY 2 MONTHS 05/08/24: quit Vaping Use Vaping status: Never Used Substance Use Topics Alcohol use: Not Currently Drug use: Yes Frequency: 7.0 times per week Types: Marijuana Comment: [address] drugs last used no h/o rehab or detox REVIEW OF SYMPTOMS: Denies chest pain Denies shortness of breath PHYSICAL EXAMINATION: General: The patient is 54 year old, male well nourished, well hydrated in no acute distress. The patient is oriented to time, place, and person. VITALS: Blood pressure 112/78, pulse 96, temperature 36.7 C (98 F), temperature source Temporal, resp. rate 14, height 176.5 cm (5' 9.5), weight 76.2 kg (168 lb), SpO2 96%. Body mass index is 24.45 kg/m . HEENT: Normal cephalic, ataumatic, pupils are equally round, sclera are anicteric, mucous membranes are moist, oropharynx is clear. Neck has no masses, asymmetry or lymphadenopathy. Respiratory: Clear to auscultation and percussion. Normal respiratory excursion and pattern. Cardiac: Examination is regular rate and rhythm. Normal S1/S2 Abdominal exam: Soft, nontender, with no palpable masses. No hepatosplenomegaly. No palpable hernias. Extremities: + clubbing, cyanosis or edema. No adenopathy. Assessment IMPRESSION: GERD Discussion/Plan/Recommendations: I have discussed the above with the patient. I have offered EGD, possible biopsies I have explained the procedure to the patient. I have counseled the patient as to the risks of the procedure, including but not limited to: infection, bleeding, injury to any intrabdominal organs such as liver/spleen, perforation of the GI tract, inability to complete the procedure, complications of anesthesia, etc. - the patient understands. Patient is waiting in the preoperative area and very frustrated with being in the hospital The patient wishes to proceed. I have answered all questions to the patient s satisfaction and the patient has no further questions. . Diagnoses: (K21.9) Gastroesophageal reflux disease without esophagitis (Z12.11) Screening for colon cancer HISTORY AND PHYSICAL Fadi Alexandre : 1970 REFERRING PHYSICIAN: Luis Mcfadden [address] [facility] [address] CHIEF COMPLAINT: Patient presents with: Consult HPI: Fadi is a 54 year old male referred for endoscopy. Fadi notes heartburn. -admits to a large amount of coffee consumption -PCP started on protonix and it is not helping Fadi denies dysphagia. Fadi denies a history of ulcers/ peptic ulcer disease. 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 Dr Mcfadden recently ordered PFTs & an ECHO. will wait for these results prior to scheduling Fadi expressed frustration stating I thought I was here for my breathing. He mentioned multiple times he does not want to do the scopes. Fadi has not undergone prior endoscopy. He refused scheduling for colonoscopy and only scheduled for EGD CURRENT MEDICATIONS Current Outpatient Medications Medication Sig Cholecalciferol, Vitamin D3, 125 mcg (5,000 unit) cap Take 1 capsule by mouth once daily. pantoprazole DR (PROTONIX) 40 mg tablet Take 1 tablet by mouth once daily. doxepin capsule 50 mg Take 50 mg by mouth daily at bedtime. traZODone (DESYREL) 100 mg tablet Take 100 mg by mouth daily at bedtime. VENLAFAXINE ER 150 MG TABLET,EXTENDED RELEASE 24 HR Take 150 mg by mouth once daily. ALPRAZolam (XANAX) 0.5 mg tablet Take 0.5 mg by mouth three times daily. No current facility-administered medications for this visit. ALLERGIES: Zyprexa [Olanzapine] PAST MEDICAL HISTORY PAST MEDICAL HISTORY Diagnosis Date Chronic pain dismissed from pain management, due to inconsistant drug screens Fall Intracranial bleed (HCC) after fall Marijuana use positive drug screen by Dr. Martinez Organic mood disorder since fall, seeing psychiatry Trauma multiple fractures PAST SURGICAL HISTORY PAST SURGICAL HISTORY Procedure Laterality Date FOOT SURGERY HX Left 2015 removal of wart PAST SURGICAL HISTORY OF 2011 trach, peg, multi-trauma/fall, hospitalized [place]-100 days FAMILY HISTORY FAMILY HISTORY Problem Relation Age of Onset Osteoporosis Mother other (CHF) Mother Hypertension Mother Arthritis Mother other (Thyroid disease) Mother Diabetes Father Heart Father No Known Problems Sister other (suicide) Brother Hypertension Brother other (Heart condition) Maternal Grandmother other (Heart condition) Maternal Grandfather No Known Problems Paternal Grandmother No Known Problems Paternal Grandfather SOCIAL HISTORY Social History Tobacco Use Smoking status: Every Day Current packs/day: 0.75 Average packs/day: 0.8 packs/day for 34.7 years (26.0 ttl pk-yrs) Types: Cigarettes Start date: 09/10/1989 Smokeless tobacco: Former Tobacco comments: CHEW TOBACCO 1 X EVERY 2 MONTHS 05/08/24: quit Vaping Use Vaping status: Never Used Substance Use Topics Alcohol use: Not Currently Drug use: Yes Frequency: 7.0 times per week Types: Marijuana Comment: [address] drugs last used no h/o rehab or detox REVIEW OF SYMPTOMS: Denies chest pain Denies shortness of breath PHYSICAL EXAMINATION: General: The patient is 54 year old, male well nourished, well hydrated in no acute distress. The patient is oriented to time, place, and person. VITALS: Blood pressure 112/78, pulse 96, temperature 36.7 C (98 F), temperature source Temporal, resp. rate 14, height 176.5 cm (5' 9.5), weight 76.2 kg (168 lb), SpO2 96%. Body mass index is 24.45 kg/m . HEENT: Normal cephalic, ataumatic, pupils are equally round, sclera are anicteric, mucous membranes are moist, oropharynx is clear. Neck has no masses, asymmetry or lymphadenopathy. Respiratory: Clear to auscultation and percussion. Normal respiratory excursion and pattern. Cardiac: Examination is regular rate and rhythm. Normal S1/S2 Abdominal exam: Soft, nontender, with no palpable masses. No hepatosplenomegaly. No palpable hernias. Extremities: + clubbing, cyanosis or edema. No adenopathy. Assessment IMPRESSION: GERD Discussion/Plan/Recommendations: I have discussed the above with the patient. I have offered EGD, possible biopsies I have explained the procedure to the patient. I have counseled the patient as to the risks of the procedure, including but not limited to: infection, bleeding, injury to any intrabdominal organs such as liver/spleen, perforation of the GI tract, inability to complete the procedure, complications of anesthesia, etc. - the patient understands. Patient is waiting in the preoperative area and very frustrated with being in the hospital The patient wishes to proceed. I have answered all questions to the patient s satisfaction and the patient has no further questions. . Diagnoses: (K21.9) Gastroesophageal reflux disease without esophagitis (Z12.11) Screening for colon cancer documented in this encounter [facility] 10-09-2024 History of Presen t illness Narrative RADIOLOGY SERVICE PROGRESS NOTE DATE OF SERVICE: October 09, 2024 TIME OF SERVICE: 9:40 am EVENT: EXAM/PROCEDURE NOT COMPLETED - Patient refused exam/procedure. and Patient became claustrophobic, reaction was: Moderate. ADDITIONAL EVENT DETAILS: Pt complained of heart racing & was afraid he was going to have a heart attack SIGNATURE: GISELE Miranda) PATIENT NAME: Fadi Alexandre DATE: October 09, 2024 TIME: 9:43 AM PAGER/CONTACT #: documented in this encounter [facility] 10-09-2024 Note HNO ID: [id number] Author: ERIC HUGHES RT(R) Service: ? Author Type: Technologist Type: Progress Notes Filed: 10/09/2024 09:45 Note Text: RADIOLOGY SERVICE PROGRESS NOTE DATE OF SERVICE: October 09, 2024 TIME OF SERVICE: 9:40 am EVENT: EXAM/PROCEDURE NOT COMPLETED - Patient refused exam/procedure. and Patient became claustrophobic, reaction was: Moderate. ADDITIONAL EVENT DETAILS: Pt complained of heart racing AND was afraid he was going to have a heart attack SIGNATURE: Eric Hughes, RT(R) PATIENT NAME: Fadi Alexandre DATE: October 09, 2024 TIME: 9:43 AM PAGER/CONTACT #: [facility] 10-02-2024 Note HNO ID: [id number] Author: LUIS MCFADDEN MD Service: ? Author Type: Physician Type: Progress Notes Filed: 10/02/2024 18:00 Note Text: The patient is a 54-year-old male with GERD, presenting for follow-up of persistent reflux symptoms.j Remains a difficult historian. Mother accompanies him to help give history. HPI GERD: - Fadi Alexandre has persistent GERD symptoms. - Currently taking pantoprazole. - Previous recommendation for EGD; did not complete. - Still with significant GERD. - getting constant acid in the throat. Has a follow up GI appt after this. Polycythemia: - Previous labs showed Homero hemoglobin of 19 g/dL. - Repeat CBC and carboxyhemoglobin were ordered but not completed. - discussed risks and benefits of why. Hyperlipidemia: - Non-fasting lipid panel showed Homero total cholesterol of 273 mg/dL, LDL of 205 mg/dL, and HDL of 48 mg/dL. - Discussion about considering cholesterol medications - Discussed repeating today. he may be open to rechecking. Clubbing: - Noted clubbing on Ezios hands during last visit. - Chest X-ray on 05/23/2024 was negative. - Echo was ordered but not completed. Reinforced importance of doing so. - PFTs showed difficult testing, no definite obstruction or obvious restriction. Headaches:States had had worsening headaches for years. Are daily. no new numbness or weakness. Again has a hx of previous head trauma. No definite hx of metal in the eyes or face but did have some radiopaque foreingn bodies noted post trauma on imaging years ago-? glass. no recnet head injury. no new speech or vision changes. He is concerned something is going on with his head. Sleep Disturbances: - Previous visit noted Ezios poor sleep. MEDICATIONS: Current Outpatient Medications Medication Sig Cholecalciferol, Vitamin D3, 125 mcg (5,000 unit) cap Take 1 capsule by mouth once daily. pantoprazole DR (PROTONIX) 40 mg tablet Take 1 tablet by mouth once daily. doxepin capsule 50 mg Take 50 mg by mouth daily at bedtime. traZODone (DESYREL) 100 mg tablet Take 100 mg by mouth daily at bedtime. VENLAFAXINE ER 150 MG TABLET,EXTENDED RELEASE 24 HR Take 150 mg by mouth once daily. ALPRAZolam (XANAX) 0.5 mg tablet Take 0.5 mg by mouth three times daily. iv contrast (will be provided with radiology test) MRI Brain Inject, intravenously, once for 1 dose.No IV access, insert saline lock prior to beginning of sedation, infusion, injection of imaging exam.Discontinue saline lock post exam. If Pt. has a central line or IVAD, may access for administration according to line specific nursing protocol.Once exam is complete flush line and de-access according to line specific nursing protocol in the MR contrast administration guidelines link No current facility-administered medications for this visit. ALLERGIES: ALLERGIES Allergen Reactions Zyprexa [Olanzapine] Rash PAST MEDICAL HISTORY Diagnosis Date Chronic pain dismissed from pain management, due to inconsistant drug screens Fall Intracranial bleed (HCC) after fall Marijuana use positive drug screen by Dr. Martinez Organic mood disorder since fall, seeing psychiatry Trauma multiple fractures PAST SURGICAL HISTORY Procedure Laterality Date FOOT SURGERY HX Left 2016 removal of wart PAST SURGICAL HISTORY OF 2011 trach, peg, multi-trauma/fall, hospitalized [place]-100 days FAMILY HISTORY Problem Relation Age of Onset Osteoporosis Mother other (CHF) Mother Hypertension Mother Arthritis Mother other (Thyroid disease) Mother other (a fib) Mother Diabetes Father Heart Father No Known Problems Sister other (suicide) Brother Hypertension Brother other (Heart condition) Maternal Grandmother other (Heart condition) Maternal Grandfather No Known Problems Paternal Grandmother No Known Problems Paternal Grandfather Anesthesia Problems No Family History SOCIAL HISTORY[1] Reviewed current medications, allergies, past medical history, surgical history, family history and social history today. REVIEW OF SYSTEMS RESPIRATORY: no definite worsening shortness of breath or cough. CARDIOVASCULAR: difficult to determine chest pain. His mother states he does not complain of it. He states. His chest always feelst tight since his accident. No edema. No palpitations. GI: Negative for blood in stools or black stools, change in bowel habit, heart burn SKIN: Negative for lesions, rash, and itching HEALTH MAINTENANCE: Reviewed health maintenance issues today and recommended the following in detail. There are no preventive care reminders to display for this patient. LAB REVIEWED: Labs: (05/23/2024) - CBC: - Hemoglobin: 19 - CMP: normal - eGFR: 107 - PSA: negative - Magnesium: 2.1 - Lipid panel: - Total Cholesterol: 273 - LDL: 205 - HDL: 48 Imaging: (05/23/2024) Chest X-ray: Negative Tests: PFT: Difficult bettina (more content not included)... [facility] 10-02-2024 History of Presen t illness Narrative The patient is a 54-year-old male with GERD, presenting for follow-up of persistent reflux symptoms.j Remains a difficult historian. Mother accompanies him to help give history. HPI GERD: - Fadi Alexandre has persistent GERD symptoms. - Currently taking pantoprazole. - Previous recommendation for EGD; did not complete. - Still with significant GERD. - getting constant acid in the throat. Has a follow up GI appt after this. Polycythemia: - Previous labs showed Ezios hemoglobin of 19 g/dL. - Repeat CBC and carboxyhemoglobin were ordered but not completed. - discussed risks and benefits of why. Hyperlipidemia: - Non-fasting lipid panel showed Ezios total cholesterol of 273 mg/dL, LDL of 205 mg/dL, and HDL of 48 mg/dL. - Discussion about considering cholesterol medications - Discussed repeating today. he may be open to rechecking. Clubbing: - Noted clubbing on Fadi's hands during last visit. - Chest X-ray on 05/23/2024 was negative. - Echo was ordered but not completed. Reinforced importance of doing so. - PFTs showed difficult testing, no definite obstruction or obvious restriction. Headaches:States had had worsening headaches for years. Are daily. no new numbness or weakness. Again has a hx of previous head trauma. No definite hx of metal in the eyes or face but did have some radiopaque foreingn bodies noted post trauma on imaging years ago-? glass. no recnet head injury. no new speech or vision changes. He is concerned something is going on with his head. Sleep Disturbances: - Previous visit noted Ezios poor sleep. MEDICATIONS: Current Outpatient Medications Medication Sig Cholecalciferol, Vitamin D3, 125 mcg (5,000 unit) cap Take 1 capsule by mouth once daily. pantoprazole DR (PROTONIX) 40 mg tablet Take 1 tablet by mouth once daily. doxepin capsule 50 mg Take 50 mg by mouth daily at bedtime. traZODone (DESYREL) 100 mg tablet Take 100 mg by mouth daily at bedtime. VENLAFAXINE ER 150 MG TABLET,EXTENDED RELEASE 24 HR Take 150 mg by mouth once daily. ALPRAZolam (XANAX) 0.5 mg tablet Take 0.5 mg by mouth three times daily. iv contrast (will be provided with radiology test) MRI Brain Inject, intravenously, once for 1 dose.No IV access, insert saline lock prior to beginning of sedation, infusion, injection of imaging exam.Discontinue saline lock post exam. If Pt. has a central line or IVAD, may access for administration according to line specific nursing protocol.Once exam is complete flush line and de-access according to line specific nursing protocol in the MR contrast administration guidelines link No current facility-administered medications for this visit. ALLERGIES: ALLERGIES Allergen Reactions Zyprexa [Olanzapine] Rash PAST MEDICAL HISTORY Diagnosis Date Chronic pain dismissed from pain management, due to inconsistant drug screens Fall Intracranial bleed (HCC) after fall Marijuana use positive drug screen by Dr. Martinez Organic mood disorder since fall, seeing psychiatry Trauma multiple fractures PAST SURGICAL HISTORY Procedure Laterality Date FOOT SURGERY HX Left 2016 removal of wart PAST SURGICAL HISTORY OF 2011 trach, peg, multi-trauma/fall, hospitalized [place]-100 days FAMILY HISTORY Problem Relation Age of Onset Osteoporosis Mother other (CHF) Mother Hypertension Mother Arthritis Mother other (Thyroid disease) Mother other (a fib) Mother Diabetes Father Heart Father No Known Problems Sister other (suicide) Brother Hypertension Brother other (Heart condition) Maternal Grandmother other (Heart condition) Maternal Grandfather No Known Problems Paternal Grandmother No Known Problems Paternal Grandfather Anesthesia Problems No Family History SOCIAL HISTORY[1] Reviewed current medications, allergies, past medical history, surgical history, family history and social history today. REVIEW OF SYSTEMS RESPIRATORY: no definite worsening shortness of breath or cough. CARDIOVASCULAR: difficult to determine chest pain. His mother states he does not complain of it. He states. His chest always feelst tight since his accident. No edema. No palpitations. GI: Negative for blood in stools or black stools, change in bowel habit, heart burn SKIN: Negative for lesions, rash, and itching HEALTH MAINTENANCE: Reviewed health maintenance issues today and recommended the following in detail. There are no preventive care reminders to display for this patient. LAB REVIEWED: Labs: (05/23/2024) - CBC: - Hemoglobin: 19 - CMP: normal - eGFR: 107 - PSA: negative - Magnesium: 2.1 - Lipid panel: - Total Cholesterol: 273 - LDL: 205 - HDL: 48 Imaging: (05/23/2024) Chest X-ray: Negative Tests: PFT: Difficult testing, no definite obstruction, no obvious restriction Cologuard: No results documented VITALS: BP 104/64 Pulse 96 Wt 77.6 kg (171 lb) SpO2 92% BMI 25.25 kg/m Last 4 Encounter Wt Readings: Date: Wt: 10/02/2024 77.7 kg (171 lb 6.4 oz) 10/02/2024 77.6 kg (171 lb) 05/23/2024 76.2 kg (168 lb) 05/23/2024 76.2 kg (168 lb) PHYSICAL EXAMINATION: GENERAL: NAD, alert and oriented SKIN: unremarkable, no rash or skin lesions. NECK: Supple, no lymphadenopathy, normal thyroid, no carotid bruits. LUNGS: Clear to auscultation bilaterally, no wheezes/rhonchi/rales. HEART: Regular rate and rhythm, no murmurs. No ectopy. ABD: soft, nontender. EXTREMITIES: Normal, No deformities, No skin discoloration, No edema. still has what I think may be clubbing. NEURO: Awake, alert and oriented x3, cranial nerves II-XII grossly intact, normal gait, no involuntary motions, normal dtrs No new focal motor deficits. ASSESSMENT AND PLAN ASSESSMENT/PLAN: 1. Headache, unspecified headache type - ICD9: 784.0, ICD10: R51.9 (primary diagnosis) - Red flags for re-assessment reviewed with patient in detail. - given hx of previous head trauma. Start with plain xray to assess face and orbits for foreign body. If ok, consider mri. Depending on results, may consider further treatment. - XR FACIAL BONES 3V AP/LAT/[place] 2. History of traumatic brain injury - ICD9: V15.52, ICD10: Z87.820 -as above. - XR FACIAL BONES 3V AP/LAT/[place] 3. Skin foreign body - ICD9: 919.6, ICD10: T14.8XXA - as above. - XR FACIAL BONES 3V AP/LAT/[place] 4. Mixed hyperlipidemia - ICD9: 272.2, ICD10: E78.2 - recheck labs. Consider stating. - LIPID PANEL, NONFASTING 5. 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 6. Undifferentiated schizophrenia (HCC) - ICD9: 295.90, ICD10: F20.3 - as above. 7. Clubbing of fingers - ICD9: 781.5, ICD10: R68.3 - get echo. Call if any worsening symptoms. - ECHO - PERFLUTREN LIPID MICROSPHERES 1.1 MG/ML INJECTION IN NS 10 ML - SODIUM CHLORIDE 0.9 % (FLUSH) INJECTION SYRINGE 8. Polycythemia - ICD9: 238.4, ICD10: D75.1 - check above. Consider further work up pending results. - COMPLETE BLOOD COUNT AND DIFFERENTIAL - CARBOXYHEMOGLOBIN PERCY Luis Mcfadden MD (See patient after visit summary for additional instructions to patient) Luis Mcfadden MD Recording using [employer] software for draft documentation of the visit was discussed with the patient/authorized dealer compliance representative; all questions welcomed and answered. Patient/authorized dealer compliance representative agreed to proceed [1] Social History Tobacco Use Smoking status: Every Day Current packs/day: 0.75 Average packs/day: 0.8 packs/day for 35.1 years (26.3 ttl pk-yrs) Types: Cigarettes Start date: 09/10/1989 Smokeless tobacco: Former Tobacco comments: CHEW TOBACCO 1 X EVERY 2 MONTHS 05/08/24: quit Vaping Use Vaping status: Never Used Substance Use Topics Alcohol use: Not Currently Drug use: Yes Frequency: 7.0 times per week Types: Marijuana Comment: [address] last used no h/o rehab or detox documented in this encounter [facility] 10-02-2024 History of Presen t illness Narrative Radiology Service Progress Note PATIENT NAME: Fadi Alexandre DATE OF SERVICE: October 02, 2024 TIME: 4:26 PM PATIENT IDENTITY VERIFICATION COMPLETED USING TWO (2) IDENTIFIERS: Name and Date of confirmed by patient verbally. FALL SCREENING: Has the patient had 2 falls in the last year or 1 fall with injury or currently using an Ambulatory Assistive Device (Walker, Cane, Wheelchair, Crutches, etc.)? No PATIENT GENDER DATA: Assigned male at PATIENT RELEVANT IMPLANT DATA REVIEWED: Not Applicable PATIENT PRESENTS WITH AN IMPLANTABLE OR ATTACHED VESSEL SLAGMAN: No RADIOLOGY DEPARTMENT: General X-ray: Exam(s) Completed: Skull X-Ray, FACIAL BONES R/O FB PERIPHERAL IV DATA: Not applicable SIGNED BY: RT Nasreen(Jared) October 02, 2024 4:26 PM documented in this encounter [facility] 10-02-2024 Note HNO ID: [id number] Author: ARIEL OCHOA RT(R) Service: ? Author Type: Technologist Type: Progress Notes Filed: 10/02/2024 16:26 Note Text: Radiology Service Progress Note PATIENT NAME: Fadi Alexandre DATE OF SERVICE: October 02, 2024 TIME: 4:26 PM PATIENT IDENTITY VERIFICATION COMPLETED USING TWO (2) IDENTIFIERS: Name and Date of confirmed by patient verbally. FALL SCREENING: Has the patient had 2 falls in the last year or 1 fall with injury or currently using an Ambulatory Assistive Device (Walker, Cane, Wheelchair, Crutches, etc.)? No PATIENT GENDER DATA: Assigned male at PATIENT RELEVANT IMPLANT DATA REVIEWED: Not Applicable PATIENT PRESENTS WITH AN IMPLANTABLE OR ATTACHED VESSEL SLAGMAN: No RADIOLOGY DEPARTMENT: General X-ray: Exam(s) Completed: Skull X-Ray, FACIAL BONES R/O FB PERIPHERAL IV DATA: Not applicable SIGNED BY: RT Nasreen(Jared) October 02, 2024 4:26 PM [facility] 10-02-2024 History and physical note Images from the original note were not included. [facility] HISTORY AND PHYSICAL EXAMINATION SERVICE DATE: 10/02/2024 SERVICE TIME: 3:47 PM PRIMARY CARE PHYSICIAN: Luis Mcfadden MD Assessment Patient has the following medical conditions which may affect tone-operative course: 1. Tobacco use (Z72.0) - Currently smoking 3/4 pack per day. - Advised to abstain from tobacco use on the morning of the EGD. 2. Marijuana use (F12.90) - Ongoing daily use via inhalation. - Advised to reduce marijuana use 7 days prior to EGD due to potential increased anesthesia requirements. 3. History of traumatic brain injury (Z87.820) - History of TBI in 2011 with persistent daily headaches. - No current numbness, tingling, or seizure activity reported. - Continue current management; follow-up with Dr. Mcfadden. 4. Undifferentiated schizophrenia (HCC) (F20.3) 5. 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 - Discussed importance of ongoing psychiatric follow-up and medication adherence. - Encouraged patient to seek support and maintain positivity. 6. History of tracheostomy (Z98.890) - Denies any new or worsening symptoms. - Denies any shortness of breath, chest pain, wheezing, or cough. 7. Mixed hyperlipidemia (E78.2) - Compliant on statin therapy. Encouraged lifestyle modifications. Body mass index is 25.31 kg/m . 8. History of psychoactive substance use disorder (Z87.898) - Patient has been sober since 2012. 9. Gastroesophageal reflux disease without esophagitis (K21.9) - Ongoing GERD symptoms; managed with Protonix. - EGD scheduled with Dr. Markham on the to evaluate persistent abdominal pain and nausea. 10. History of percutaneous endoscopic gastrostomy (Z98.890) - Denies any new or worsening symptoms. - Patient eats PO. ANESTHESIA FINDINGS: Intubation History: No history of difficult intubation. No abnormal airway history Significant Anesthesia Considerations: none Airway History: No history of difficult airway No abnormal airway history Montano Activity Status Index: METS: Walk indoors, such as around the house (1.75 METs) Do light work around the house, such as dusting or washing dishes (2.70 METs) Take care of self; that is eating, dressing, bathing, using the toilet (2.75 METs) Walk a block or two on level ground (2.75 METs) Do moderate work around the house, such as vacuuming, sweeping floors, or carrying in groceries (3.50 METs) DASI Score: 13.45 Patient denies any chest pain or undue shortness of breath with the above physical activity. Clinical Frailty Scale: 3. Well, with treated comorbid disease STOP-Bang Score: Patient over 50 years old Male patient Denies snoring loudly Denies feeling tired, fatigued, or sleepy during the daytime Has not been observed to stop breathing or choking/gasping during sleep Denies having high blood pressure BMI less than or equal to 35 kg/m^2 Does not have a large neck STOP-Bang Score: 2 I - PHYSICAL EVALUATION AIRWAY Patient intubated: No. Tracheostomy tube not present Mallampati: III. TM distance: >3 FB. Neck ROM: full ROM without neurological symptoms. Mouth openin FB. Short neck: no. Thick neck: no Jolly present: yes DENTAL Dental findings: poor dentition and missing tooth/teeth. II - ANESTHESIA PLAN Anesthetic plan additional comments: *PACC/TCI - anesthesia choice. Informed Consent Prepared for Surgery: optimally prepared for surgery. CONSULTS: Patient does not require consults for optimization at this time Planned Anesthetic: anesthesia choice The Following Tests/Procedures Have Been Initiated: No orders of the defined types were placed in this encounter. REASON FOR VISIT: Fadi Alexandre is a 54 year old male who is scheduled for * No surgery found * at the request of Dr. Chapis Markham for consultation. My final recommendation will be communicated back to the requesting physician by way of shared medical record or letter. Subjective The patient has the following: COVID-19 Immunization Status This patient has no relevant Health Maintenance data. CHIEF COMPLAINT: pre op HPI: Fadi Alexandre is a 54-year-old male with a history of TBI, schizophrenia, anxiety, depression, and HLD, presenting for preoperative evaluation prior to an upcoming EGD. Fadi reports chronic abdominal pain and acid reflux, for which he is scheduled to undergo an EGD on the . He denies diarrhea, emesis, fever, or skin issues. He has a history of a TBI secondary to a fall in 2011, which required extensive rehabilitation. Since the TBI, he has experienced persistent cephalalgia, described as splitting migraine headaches, which are refractory to multiple treatments. He denies paresthesia, hypoesthesia, seizures, CVA, or TIA. REVIEW OF SYSTEMS: General: No weight loss, malaise or fevers. Neurological: Positive for: headaches. Negative for: delirium, dementia, impaired sensorium, peripheral neuropathy, seizures, TIA and strokes. Respiratory: Negative for: asthma, bronchitis, COPD, current cough, bronchodilator used daily for the last 3 months, dyspnea, home oxygen, orthopnea, pneumonia within 6 weeks, tobacco use, URI < 2 weeks and obstructive sleep apnea. Cardiovascular: Denies any heart palpitations, edema, chest pain, shortness of breath, syncope, activity intolerance, or dizziness. Positive for: hyperlipidemia Negative for: abdominal aortic aneurysm, AICD/PPM, angina, anticoagulation therapy, arrhythmia, atrial fibrillation, CAD, chest pain, CHF, congenital heart defect, DVT/PE, hypertension, recent CT, murmur/valvular heart disease, PTCA, PVD, open heart surgery and valve surgery. GI: See HPI. : denies CKD Negative for: on dialysis, dysuria, flank pain, frequent urination, hematuria, renal failure and urinary tract infection. Endocrine: Negative for: diabetes mellitus, hyperthyroidism and hypothyroidism. Hematology: Negative for: anemia, bruises/bleeds easily, factor V Leiden, hemophilia, thrombocytopenia, von Willebrand disease, transfusion of at least 4 units within 72 hours prior to surgery and chronic anti-coagulation/platelet meds. Oncology: Negative for: CA metastasis, chemo within 30 days, disseminated cancer and radiotherapy within 90 days. Psych: Positive for: anxiety, depression and Marijuana Use. Product type: Concentrate. Route of administration: Inhalation. Frequency: Daily. Musculoskeletal: Negative for joint pain or swelling, back pain or muscle pain. Skin: Negative for lesions, rash and itching. Implanted Devices: No implanted devices. PAST MEDICAL HISTORY Diagnosis Date Chronic pain dismissed from pain management, due to inconsistant drug screens Fall Intracranial bleed (HCC) after fall Marijuana use positive drug screen by Dr. Martinez Organic mood disorder since fall, seeing psychiatry Trauma multiple fractures PAST SURGICAL HISTORY Procedure Laterality Date FOOT SURGERY HX Left 2016 removal of wart PAST SURGICAL HISTORY OF 2011 trach, peg, multi-trauma/fall, hospitalized [place]-100 days FAMILY HISTORY Problem Relation Age of Onset Osteoporosis Mother other (CHF) Mother Hypertension Mother Arthritis Mother other (Thyroid disease) Mother other (a fib) Mother Diabetes Father Heart Father No Known Problems Sister other (suicide) Brother Hypertension Brother other (Heart condition) Maternal Grandmother other (Heart condition) Maternal Grandfather No Known Problems Paternal Grandmother No Known Problems Paternal Grandfather Anesthesia Problems No Family History SOCIAL HISTORY[1] Prior to Admission medications as of 10/02/24 3219 Medication Sig Last Dose Taking Cholecalciferol, Vitamin D3, 125 mcg (5,000 unit) cap Take 1 capsule by mouth once daily. Yes pantoprazole DR (PROTONIX) 40 mg tablet Take 1 tablet by mouth once daily. Yes doxepin capsule 50 mg Take 50 mg by mouth daily at bedtime. Yes traZODone (DESYREL) 100 mg tablet Take 100 mg by mouth daily at bedtime. Yes VENLAFAXINE ER 150 MG TABLET,EXTENDED RELEASE 24 HR Take 150 mg by mouth once daily. Yes ALPRAZolam (XANAX) 0.5 mg tablet Take 0.5 mg by mouth three times daily. Yes No medication comments found. ALLERGIES Allergen Reactions Zyprexa [Olanzapine] Rash Objective PHYSICAL EXAM: General: alert and oriented and healthy appearance. Pertinent negatives noted - not distressed. Skin: normal color, no rash or lesions. HEENT: EOM intact, pupils equal round and pupils reactive to light. Pertinent negatives noted - no carotid bruit. Cardiovascular: regular rate and rhythm, normal S1 and S2, no rub, murmurs, or gallop. Respiratory: normal breath sounds, no wheezes or crackles. No chest wall deformity or tenderness. Abdomen: bowel sounds present and soft. Pertinent negatives noted - not tender. Extremities: no deformity, no edema or tenderness, no joint swelling or clubbing. Neurological: normal cognition and motor skills. Gait normal. No weakness or sensory deficit. PAIN ASSESSMENT: VITALS: BP 114/70 Pulse 94 Temp (Src) 97.8 (Temporal) Resp 14 Ht 5' 9 (1.75m) Wt 171 lb 6.4 oz (77.7kg) SpO2 94% BMI 25.30 kg/(m^2). Diagnostic tests reviewed for today's visit: Lab Value Units Date High Low HB 18.0 g/dL 10/02/2024 17.0 13.0 HCT 51.8 % 10/02/2024 51.0 39.0 WBC 12.10 k/uL 10/02/2024 11.00 3.70 PLT 264 k/uL 10/02/2024 400 150 NA 139 mmol/L 05/21/2024 144 136 K 4.1 mmol/L 05/21/2024 5.1 3.7 GLUC 91 mg/dL 05/21/2024 99 74 BUN 7 mg/dL 05/21/2024 24 9 CREAT 0.76 mg/dL 05/21/2024 1.22 0.73 PTSEC No results within date range. INR No results within date range. APTT No results within date range. ALT 15 U/L 05/21/2024 54 10 AST 18 U/L 05/21/2024 40 14 TBILI 0.3 mg/dL 05/21/2024 1.3 0.2 TSH No results within date range. Lab Value Units Date High Low HCGQT No results within date range. UHCG No results within date range. HCG, BODY* No results within date range. Lab Value Units Date High Low ABORHD No results within date range. ABSCREEN No results within date range. No results found for: HBA1C No results found for this or any previous visit (from the past 8760 hours). No results found for this or any previous visit (from the past 69152 hours). Instructions Given to Patient: Instructions located in the after visit summary. Patient given verbal and written preop instructions and voices comprehension and compliance. Recording using [employer] software for draft documentation of the visit was discussed with the patient/authorized dealer compliance representative; all questions welcomed and answered. Patient/authorized dealer compliance representative agreed to proceed SIGNATURE: Grey Haji APRN.CNP PATIENT NAME: Fadi Alexandre DATE: October 02, 2024 TIME: 3:18 PM PAGER/CONTACT #: [1] Social History Tobacco Use Smoking status: Every Day Current packs/day: 0.75 Average packs/day: 0.8 packs/day for 35.1 years (26.3 ttl pk-yrs) Types: Cigarettes Start date: 09/10/1989 Smokeless tobacco: Former Tobacco comments: CHEW TOBACCO 1 X EVERY 2 MONTHS 05/08/24: quit Vaping Use Vaping status: Never Used Substance Use Topics Alcohol use: Not Currently Drug use: Yes Frequency: 7.0 times per week Types: Marijuana Comment: [address] last used no h/o rehab or detox [facility] 10-02-2024 History and physical note Images from the original note were not included. [facility] HISTORY AND PHYSICAL EXAMINATION SERVICE DATE: 10/02/2024 SERVICE TIME: 3:47 PM PRIMARY CARE PHYSICIAN: Luis Mcfadden MD Assessment Patient has the following medical conditions which may affect tone-operative course: 1. Tobacco use (Z72.0) - Currently smoking 3/4 pack per day. - Advised to abstain from tobacco use on the morning of the EGD. 2. Marijuana use (F12.90) - Ongoing daily use via inhalation. - Advised to reduce marijuana use 7 days prior to EGD due to potential increased anesthesia requirements. 3. History of traumatic brain injury (Z87.820) - History of TBI in 2011 with persistent daily headaches. - No current numbness, tingling, or seizure activity reported. - Continue current management; follow-up with Dr. Mcfadden. 4. Undifferentiated schizophrenia (HCC) (F20.3) 5. 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 - Discussed importance of ongoing psychiatric follow-up and medication adherence. - Encouraged patient to seek support and maintain positivity. 6. History of tracheostomy (Z98.890) - Denies any new or worsening symptoms. - Denies any shortness of breath, chest pain, wheezing, or cough. 7. Mixed hyperlipidemia (E78.2) - Compliant on statin therapy. Encouraged lifestyle modifications. Body mass index is 25.31 kg/m . 8. History of psychoactive substance use disorder (Z87.898) - Patient has been sober since 2012. 9. Gastroesophageal reflux disease without esophagitis (K21.9) - Ongoing GERD symptoms; managed with Protonix. - EGD scheduled with Dr. Markham on the to evaluate persistent abdominal pain and nausea. 10. History of percutaneous endoscopic gastrostomy (Z98.890) - Denies any new or worsening symptoms. - Patient eats PO. ANESTHESIA FINDINGS: Intubation History: No history of difficult intubation. No abnormal airway history Significant Anesthesia Considerations: none Airway History: No history of difficult airway No abnormal airway history Montano Activity Status Index: METS: Walk indoors, such as around the house (1.75 METs) Do light work around the house, such as dusting or washing dishes (2.70 METs) Take care of self; that is eating, dressing, bathing, using the toilet (2.75 METs) Walk a block or two on level ground (2.75 METs) Do moderate work around the house, such as vacuuming, sweeping floors, or carrying in groceries (3.50 METs) DASI Score: 13.45 Patient denies any chest pain or undue shortness of breath with the above physical activity. Clinical Frailty Scale: 3. Well, with treated comorbid disease STOP-Bang Score: Patient over 50 years old Male patient Denies snoring loudly Denies feeling tired, fatigued, or sleepy during the daytime Has not been observed to stop breathing or choking/gasping during sleep Denies having high blood pressure BMI less than or equal to 35 kg/m^2 Does not have a large neck STOP-Bang Score: 2 I - PHYSICAL EVALUATION AIRWAY Patient intubated: No. Tracheostomy tube not present Mallampati: III. TM distance: >3 FB. Neck ROM: full ROM without neurological symptoms. Mouth openin FB. Short neck: no. Thick neck: no Jolly present: yes DENTAL Dental findings: poor dentition and missing tooth/teeth. II - ANESTHESIA PLAN Anesthetic plan additional comments: *PACC/TCI - anesthesia choice. Informed Consent Prepared for Surgery: optimally prepared for surgery. CONSULTS: Patient does not require consults for optimization at this time Planned Anesthetic: anesthesia choice The Following Tests/Procedures Have Been Initiated: No orders of the defined types were placed in this encounter. REASON FOR VISIT: Fadi Alexandre is a 54 year old male who is scheduled for * No surgery found * at the request of Dr. Chapis Markham for consultation. My final recommendation will be communicated back to the requesting physician by way of shared medical record or letter. Subjective The patient has the following: COVID-19 Immunization Status This patient has no relevant Health Maintenance data. CHIEF COMPLAINT: pre op HPI: Fadi Alexandre is a 54-year-old male with a history of TBI, schizophrenia, anxiety, depression, and HLD, presenting for preoperative evaluation prior to an upcoming EGD. Fadi reports chronic abdominal pain and acid reflux, for which he is scheduled to undergo an EGD on the . He denies diarrhea, emesis, fever, or skin issues. He has a history of a TBI secondary to a fall in 2011, which required extensive rehabilitation. Since the TBI, he has experienced persistent cephalalgia, described as splitting migraine headaches, which are refractory to multiple treatments. He denies paresthesia, hypoesthesia, seizures, CVA, or TIA. REVIEW OF SYSTEMS: General: No weight loss, malaise or fevers. Neurological: Positive for: headaches. Negative for: delirium, dementia, impaired sensorium, peripheral neuropathy, seizures, TIA and strokes. Respiratory: Negative for: asthma, bronchitis, COPD, current cough, bronchodilator used daily for the last 3 months, dyspnea, home oxygen, orthopnea, pneumonia within 6 weeks, tobacco use, URI < 2 weeks and obstructive sleep apnea. Cardiovascular: Denies any heart palpitations, edema, chest pain, shortness of breath, syncope, activity intolerance, or dizziness. Positive for: hyperlipidemia Negative for: abdominal aortic aneurysm, AICD/PPM, angina, anticoagulation therapy, arrhythmia, atrial fibrillation, CAD, chest pain, CHF, congenital heart defect, DVT/PE, hypertension, recent CT, murmur/valvular heart disease, PTCA, PVD, open heart surgery and valve surgery. GI: See HPI. : denies CKD Negative for: on dialysis, dysuria, flank pain, frequent urination, hematuria, renal failure and urinary tract infection. Endocrine: Negative for: diabetes mellitus, hyperthyroidism and hypothyroidism. Hematology: Negative for: anemia, bruises/bleeds easily, factor V Leiden, hemophilia, thrombocytopenia, von Willebrand disease, transfusion of at least 4 units within 72 hours prior to surgery and chronic anti-coagulation/platelet meds. Oncology: Negative for: CA metastasis, chemo within 30 days, disseminated cancer and radiotherapy within 90 days. Psych: Positive for: anxiety, depression and Marijuana Use. Product type: Concentrate. Route of administration: Inhalation. Frequency: Daily. Musculoskeletal: Negative for joint pain or swelling, back pain or muscle pain. Skin: Negative for lesions, rash and itching. Implanted Devices: No implanted devices. PAST MEDICAL HISTORY Diagnosis Date Chronic pain dismissed from pain management, due to inconsistant drug screens Fall Intracranial bleed (HCC) after fall Marijuana use positive drug screen by Dr. Martinez Organic mood disorder since fall, seeing psychiatry Trauma multiple fractures PAST SURGICAL HISTORY Procedure Laterality Date FOOT SURGERY HX Left 2016 removal of wart PAST SURGICAL HISTORY OF 2011 trach, peg, multi-trauma/fall, hospitalized [place]-100 days FAMILY HISTORY Problem Relation Age of Onset Osteoporosis Mother other (CHF) Mother Hypertension Mother Arthritis Mother other (Thyroid disease) Mother other (a fib) Mother Diabetes Father Heart Father No Known Problems Sister other (suicide) Brother Hypertension Brother other (Heart condition) Maternal Grandmother other (Heart condition) Maternal Grandfather No Known Problems Paternal Grandmother No Known Problems Paternal Grandfather Anesthesia Problems No Family History SOCIAL HISTORY[1] Prior to Admission medications as of 10/02/24 1519 Medication Sig Last Dose Taking Cholecalciferol, Vitamin D3, 125 mcg (5,000 unit) cap Take 1 capsule by mouth once daily. Yes pantoprazole DR (PROTONIX) 40 mg tablet Take 1 tablet by mouth once daily. Yes doxepin capsule 50 mg Take 50 mg by mouth daily at bedtime. Yes traZODone (DESYREL) 100 mg tablet Take 100 mg by mouth daily at bedtime. Yes VENLAFAXINE ER 150 MG TABLET,EXTENDED RELEASE 24 HR Take 150 mg by mouth once daily. Yes ALPRAZolam (XANAX) 0.5 mg tablet Take 0.5 mg by mouth three times daily. Yes No medication comments found. ALLERGIES Allergen Reactions Zyprexa [Olanzapine] Rash Objective PHYSICAL EXAM: General: alert and oriented and healthy appearance. Pertinent negatives noted - not distressed. Skin: normal color, no rash or lesions. HEENT: EOM intact, pupils equal round and pupils reactive to light. Pertinent negatives noted - no carotid bruit. Cardiovascular: regular rate and rhythm, normal S1 and S2, no rub, murmurs, or gallop. Respiratory: normal breath sounds, no wheezes or crackles. No chest wall deformity or tenderness. Abdomen: bowel sounds present and soft. Pertinent negatives noted - not tender. Extremities: no deformity, no edema or tenderness, no joint swelling or clubbing. Neurological: normal cognition and motor skills. Gait normal. No weakness or sensory deficit. PAIN ASSESSMENT: VITALS: BP 114/70 Pulse 94 Temp (Src) 97.8 (Temporal) Resp 14 Ht 5' 9 (1.75m) Wt 171 lb 6.4 oz (77.7kg) SpO2 94% BMI 25.30 kg/(m^2). Diagnostic tests reviewed for today's visit: Lab Value Units Date High Low HB 18.0 g/dL 10/02/2024 17.0 13.0 HCT 51.8 % 10/02/2024 51.0 39.0 WBC 12.10 k/uL 10/02/2024 11.00 3.70 PLT 264 k/uL 10/02/2024 400 150 NA 139 mmol/L 05/21/2024 144 136 K 4.1 mmol/L 05/21/2024 5.1 3.7 GLUC 91 mg/dL 05/21/2024 99 74 BUN 7 mg/dL 05/21/2024 24 9 CREAT 0.76 mg/dL 05/21/2024 1.22 0.73 PTSEC No results within date range. INR No results within date range. APTT No results within date range. ALT 15 U/L 05/21/2024 54 10 AST 18 U/L 05/21/2024 40 14 TBILI 0.3 mg/dL 05/21/2024 1.3 0.2 TSH No results within date range. Lab Value Units Date High Low HCGQT No results within date range. UHCG No results within date range. HCG, BODY* No results within date range. Lab Value Units Date High Low ABORHD No results within date range. ABSCREEN No results within date range. No results found for: HBA1C No results found for this or any previous visit (from the past 8760 hours). No results found for this or any previous visit (from the past 14622 hours). Instructions Given to Patient: Instructions located in the after visit summary. Patient given verbal and written preop instructions and voices comprehension and compliance. Recording using [employer] software for draft documentation of the visit was discussed with the patient/authorized dealer compliance representative; all questions welcomed and answered. Patient/authorized dealer compliance representative agreed to proceed SIGNATURE: Grey Haji APRN.CNP PATIENT NAME: Fadi Alexandre DATE: October 02, 2024 TIME: 3:18 PM PAGER/CONTACT #: [1] Social History Tobacco Use Smoking status: Every Day Current packs/day: 0.75 Average packs/day: 0.8 packs/day for 35.1 years (26.3 ttl pk-yrs) Types: Cigarettes Start date: 09/10/1989 Smokeless tobacco: Former Tobacco comments: CHEW TOBACCO 1 X EVERY 2 MONTHS 05/08/24: quit Vaping Use Vaping status: Never Used Substance Use Topics Alcohol use: Not Currently Drug use: Yes Frequency: 7.0 times per week Types: Marijuana Comment: [address] drugs last used no h/o rehab or detox documented in this encounter [facility] 10-01-2024 Instructions Grey Haji APRN.ZACHARY - 10/01/2024 3:59 PM EDT Images from the original note were not included. [facility] PATIENT PREOPERATIVE INSTRUCTIONS Chapis Markham MD has scheduled you for your procedure at this surgery center: [facility]: [phone] -- [address] [facility] [address] [address]. Please read below carefully for your personalized instructions. Arrival Time for Surgery: - The Surgery Center or hospital where you are having surgery will call the afternoon before surgery (or Tuesday for Tuesday surgery) with a scheduled arrival time. - If you have not heard by 4 pm, please contact the surgery center above. Dietary Restrictions: - No solid food after midnight. - You may have 12 ounces of clear liquids (water, clear juices such as apple juice or gatorade, carbonated beverages, clear tea, black coffee, jello) until 2 hours before scheduled arrival at facility. - Do not drink any alcohol after midnight the night before your surgery. - no milk/creamer or other additives like honey - no pulp juices Medications: Pre-Surgery Med Instructions Medication Instructions Cholecalciferol, Vitamin D3, 125 mcg (5,000 unit) cap Do not take the day of surgery pantoprazole DR (PROTONIX) 40 mg tablet If you normally take this medication in the morning, take the morning of surgery. doxepin capsule 50 mg If you normally take this medication in the morning, take the morning of surgery. traZODone (DESYREL) 100 mg tablet Please take night before surgery as directed. VENLAFAXINE ER 150 MG TABLET,EXTENDED RELEASE 24 HR If you normally take this medication in the morning, take the morning of surgery. ALPRAZolam (XANAX) 0.5 mg tablet If you normally take this medication in the morning, take the morning of surgery. If you are currently using a jihy-pzc-lsgp injectable or oral medication for diabetes or weight loss such as Dulaglutide (Trulicity), Exenatide (Byetta, Bydureon), Liraglutide (Victoza, Saxenda), Semaglutide (Ozempic, Wegovy, Rybelsus), or Tirzepatide (Mounjaro), the medicine should be stopped at least 7 days before surgery. These medicines can cause food to remain in your stomach for a very long time and increase the risks from surgery and anesthesia. Not stopping the medication for a long enough time may result in your surgery being rescheduled. If you take any medications for erectile dysfunction-Cialis (Tadalafil), Levitra, Staxyn (Vardenafil) Viagra (Sildenenafil please do not take these for 48 hours before surgery. If you start any new medications after today's visit, please contact the surgeon's office. Blood Thinning Medications: - Stop NSAIDS (Ibuprofen, Advil, Aleve, Motrin, Celebrex, Mobic, etc.) 7 days before surgery, as directed by your surgeon. - Stop Aspirin 7 days before surgery, as directed by your surgeon. - Stop herbal supplements 7 days before surgery. - You may take Tylenol (Acetaminophen) or any of your pain medications that do not contain aspirin or NSAIDS as needed. Important Reminders: - If you use CPAP/BIPAP, bring the machine with you to the surgery center. - If you are prescribed inhalers for breathing, continue using them. - Please be sure to brush your teeth and you can use mouth wash or rinse your mouth if dry. - Candy, mints, and tobacco products are NOT permitted the morning of surgery. - Hearing aids, dentures and glasses may be worn the morning of surgery. - If you have dentures or partials, please have a case to place them in or leave at home day of surgery. - NO jewelry, body piercings, makeup, hairpins or contacts are to be worn the day of surgery. If you develop symptoms such as a fever, cold, or flu, or have other changes to your health within TWO DAYS of scheduled surgery or the morning of surgery, please contact the surgery center above. Personal Belongings: -Please have photo ID and insurance cards. -If you do not have a copy of advance directives on file with us, please bring a copy with you on the day of surgery. - Leave ALL valuables and money at home or with family members. For Outpatient Procedures: - YOU MUST HAVE A RESPONSIBLE INTERNET MARKETING SPECIALIST TAKE YOU HOME. A SHAPING MACHINE OPERATOR OR BRIDGE REPAIRER CANNOT BE MADE A RESPONSIBLE INTERNET MARKETING SPECIALIST. - We recommend that a responsible person stays with you overnight to take care of you. - You cannot stay in a hotel alone after outpatient surgery. You will not be permitted to have your surgery, if you do not have someone to take care of you. Please be aware that emergency situations arise, which may delay or change your surgical time. If this happens, we will notify you as soon as possible and regret any inconvenience. If you already have an Advance Directive, please fax a copy to [phone] or email to for it to be added to your chart. If you do not have an Advance Directive, you can find the appropriate form and more information at [email or web address]. We recommend that you complete the Advance Directive form found on the website and bring it with you the day of your surgery. It can be witnessed and scanned into your chart that day. Grey Haji APRN.ZACHARY documented in this encounter [facility] 09-17-2024 Telephone encounter Note EGD order is placed to be completed at [place]. Please assist in scheduling. [facility] 09-17-2024 Miscellaneous Notes EGD order is placed to be completed at [place]. Please assist in scheduling. Mother is calling stating the patient would like to try to move forward and complete an upper scope please advise mother Katharine documented in this encounter [facility] 09-17-2024 Telephone encounter Note Mother is calling stating the patient would like to try to move forward and complete an upper scope please advise mother Katharine [facility] 06-26-2024 Telephone encounter Note Contacted patient by phone and spoke to Mother. Advised of Renuka Hurt recommendation below.Lacie Sampson RN [facility] 06-26-2024 Miscellaneous Notes Contacted patient by phone and spoke to Mother. Advised of Renuka Hurt recommendation below.Lacie Sampson RN documented in this encounter [facility] 06-19-2024 Telephone encounter Note DONE [facility] 06-19-2024 Miscellaneous Notes DONE Can cancel due to noncompliance. I will discuss at next ov Called pt to schedule approved echo, stated he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 (XANAX) 0.5 mg tablet Take 0.5 mg by mouth three times daily. No current facility-administered medications for this visit. ALLERGIES: Zyprexa [Olanzapine] PAST MEDICAL HISTORY Diagnosis Date Chronic pain dismissed from pain management, due to inconsistant drug screens Fall Intracranial bleed (HCC) after fall Marijuana use positive drug screen by Dr. Martinez Organic mood disorder since fall, seeing psychiatry Trauma multiple fractures PAST SURGICAL HISTORY Procedure Laterality Date FOOT SURGERY HX Left 2016 removal of wart PAST SURGICAL HISTORY OF 2011 trach, peg, multi-trauma/fall, hospitalized [place]-100 days FAMILY HISTORY Problem Relation Age of Onset Osteoporosis Mother other (CHF) Mother Hypertension Mother Arthritis Mother other (Thyroid disease) Mother Diabetes Father Heart Father No Known Problems Sister other (suicide) Brother Hypertension Brother other (Heart condition) Maternal Grandmother other (Heart condition) Maternal Grandfather No Known Problems Paternal Grandmother No Known Problems Paternal Grandfather Social History Tobacco Use Smoking status: Every Day Current packs/day: 0.75 Average packs/day: 0.8 packs/day for 34.7 years (26.0 ttl pk-yrs) Types: Cigarettes Start date: 09/10/1989 Smokeless tobacco: Former Tobacco comments: CHEW TOBACCO 1 X EVERY 2 MONTHS 05/08/24: quit Vaping Use Vaping status: Never Used Substance Use Topics Alcohol use: Not Currently Drug use: Yes Frequency: 7.0 times per week Types: Marijuana Comment: [address] last used no h/o rehab or detox REVIEW OF SYMPTOMS: The review of systems data was entered by the nurse and reviewed by me SEE NURSING NOTE PHYSICAL EXAMINATION: General: The patient is 54 year old, male well nourished, well hydrated in no acute distress. The patient is oriented to time, place, and person. VITALS: Blood pressure 112/78, pulse 96, temperature 36.7 ?C (98 ?F), temperature source Temporal, resp. rate 14, height 176.5 cm (5' 9.5), weight 76.2 kg (168 lb), SpO2 96%. Body mass index is 24.45 kg/m?. HEENT: Normal cephalic, ataumatic, pupils are equally round, sclera are anicteric, mucous membranes are moist, oropharynx is clear. Neck has no masses, asymmetry or lymphadenopathy. Respiratory: Clear to auscultation and percussion. Normal respiratory excursion and pattern. Cardiac: Examination is regular rate and rhythm. Normal S1/S2 Abdominal exam: Soft, nontender, with no palpable masses. No hepatosplenomegaly. No palpable hernias. Extremities: + clubbing, cyanosis or edema. No adenopathy. LABORATORY VALUES: As Noted RADIOLOGIC STUDIES: As Noted Assessment IMPRESSION: screen for colon cancer, GERD PLAN: I have reviewed my findings with the surgeon. Will plan for upper endoscopy. We discussed the risks and benefits of the planned endoscopy. I have informed the patient that complications can occur including failure to complete the endoscopy and perforation. Fadi had the opportuni (more content not included)... [facility] 05-21-2024 Evaluation note Diagnosis Polycythemia- Primary Polycythemia vera Medication monitoring encounter Encounter for therapeutic drug monitoring documented in this encounter [facility]04-14-2025 History of Present illness Narrative* Steff Estrada RT(R) - 05/21/2024 12:00 PM EDT Radiology Service Progress Note PATIENT NAME: Fadi Alexandre DATE OF SERVICE: May 21, 2024 TIME: 11:47 AM PATIENT IDENTITY VERIFICATION COMPLETED USING TWO (2) IDENTIFIERS: Name and Date of confirmedby patient verbally. FALL SCREENING: Has the patient had 2 falls in the last year or 1 fall with injury or currently using an Ambulatory Assistive Device (Walker, Cane, Wheelchair, Crutches, etc.)? No PATIENT GENDER DATA: Assigned female at . status: : No status:NO. PATIENT RELEVANT IMPLANT DATA REVIEWED: Not Applicable PATIENT PRESENTS WITH AN IMPLANTABLE OR ATTACHED VESSEL SLAGMAN: No RADIOLOGY DEPARTMENT: General X-ray: Exam(s) Completed: Chest X-Ray PERIPHERAL IV DATA: Not applicable SIGNED BY: RT Denise(R) May 21, 2024 11:47 AM [facility] NoteHNO ID: [id number] Author: STEFF ESTRADA RT(R) Service: Radiology Author Type: Technologist Type: Progress Notes Filed: 05/21/2024 11:51 Note Text: Radiology Service Progress Note PATIENT NAME: Fadi Alexandre DATE OF SERVICE: May 21, 2024 TIME: 11:47 AM PATIENT IDENTITY VERIFICATION COMPLETED USING TWO (2) IDENTIFIERS: Name and Date of confirmed by patient verbally. FALL SCREENING: Has the patient had 2 falls in the last year or 1 fall with injury or currently using an Ambulatory Assistive Device (Walker, Cane, Wheelchair, Crutches, etc.)? No PATIENT GENDER DATA: Assigned female at . status: : No status: NO. PATIENT RELEVANT IMPLANT DATA REVIEWED: Not Applicable PATIENT PRESENTS WITH AN IMPLANTABLE OR ATTACHED VESSEL SLAGMAN: No RADIOLOGY DEPARTMENT: General X-ray: Exam(s) Completed: Chest X-Ray PERIPHERAL IV DATA: Not applicable SIGNED BY: RT Denise(Jared) May 21, 2024 11:47 [facility]04-14-2025 NoteHNO ID: [id number] Author: LUIS MCFADDEN MD Service: ? Author Type: Physician Type: Progress Notes Filed: 05/21/2024 12:25 Note Text: Patient presents with: 6 Month Exam HPI: Patient presents today for office visit for routine 6 month follow up. I last saw the patient in 2019. PSYCH: Sees the counseling center. Sees for meds and counseling. Continues on Xanax prn, venlafaxine and trazodone. Not sleeping well. Can't fall asleep. Has tried several medications with no success. GERD: States he gets it daily. Does drink a large amount of coffee a day. Denies bloody or black stool. Somewhat of a difficult historian. Has had no exertional chest pain No new shortness of breath. Reports having shortness of breath with his smoking. Continues to smoke 1 PPD. Due for labs. MEDICATIONS: Current Outpatient Medications Medication Sig Cholecalciferol, Vitamin D3, 125 mcg (5,000 unit) cap Take 1 capsule by mouth once daily. pantoprazole DR (PROTONIX) 40 mg tablet Take 1 tablet by mouth once daily. doxepin capsule 50 mg Take 50 mg by mouth daily at bedtime. traZODone (DESYREL) 100 mg tablet Take 100 mg by mouth daily at bedtime. VENLAFAXINE ER 150 MG TABLET,EXTENDED RELEASE 24 HR Take 150 mg by mouth once daily. ALPRAZolam (XANAX) 0.5 mg tablet Take 0.5 mg by mouth three times daily. No current facility-administered medications for this visit. ALLERGIES: ALLERGIES Allergen Reactions Zyprexa [Olanzapine] Rash PAST MEDICAL HISTORY Diagnosis Date Chronic pain dismissed from pain management, due to inconsistant drug screens Fall Intracranial bleed (HCC) after fall Marijuana use positive drug screen by Dr. Martinez Organic mood disorder since fall, seeing psychiatry Trauma multiple fractures PAST SURGICAL HISTORY Procedure Laterality Date FOOT SURGERY HX Left 2016 removal of wart PAST SURGICAL HISTORY OF 2011 trach, peg, multi-trauma/fall, hospitalized [place]-100 days FAMILY HISTORY Problem Relation Age of Onset None Mother Diabetes Father Heart Father Social History Tobacco Use Smoking status: Every Day Current packs/day: 0.75 Average packs/day: 0.8 packs/day for 34.7 years (26.0 ttl pk-yrs) Types: Cigarettes Start date: 09/10/1989 Smokeless tobacco: Current Tobacco comments: CHEW TOBACCO 1 X EVERY 2 MONTHS Substance Use Topics Alcohol use: No Drug use: Yes Comment: [address] last used no h/o rehab or detox Discussed tobacco cessation, including risks of continued use. Offered assistance to help quit if patient desires. Is using thc again. Psych is aware. Discussed risks of using. Reviewed current medications, allergies, past medical history, surgical history, family history and social history today. REVIEW OF SYSTEMS No issues urinating. All other reviewed and negative other than HPI. HEALTH MAINTENANCE: Reviewed health maintenance issues today and recommended the following in detail. Pneumococcal Vaccine: 50+(2 of 2 - PCV) due on 12/22/2017 VITALS: BP 104/64 Pulse 102 Ht 175.3 cm (5' 9) Wt 76.7 kg (169 lb) SpO2 95% BMI 24.96 kg/m? Last 4 Encounter Wt Readings: Date: Wt: 11/22/2023 78.6 kg (173 lb 4.5 oz) 11/15/2023 78.5 kg (173 lb) 05/18/2021 56.2 kg (124 lb) 12/02/2020 58.5 kg (129 lb) PHYSICAL EXAMINATION: General appearance: Well appearing, alert, in no acute distress, well-hydrated, well nourished. Skin: Skin color, texture, turgor normal, no suspicious rashes or lesions Head: Normocephalic, no masses, lesions, tenderness or abnormalities Lungs: slight crackles in right post lung base. Heart: RRR without murmur, gallop, or rubs. No ectopy Abdomen: Normal abdominal exam, Abdomen soft, non-tender. Bowel sounds normal. No masses, organomegaly Extremities: Positive findings: ? Mild clubbing of finger. Musculoskeletal: No joint swelling, deformity, or tenderness ASSESSMENT/PLAN: 1. History of traumatic brain injury - ICD9: V15.52, ICD10: Z87.820 (primary diagnosis) - stable. See counseling center. 2. Gastroesophageal reflux disease without esophagitis - ICD9: 530.81, ICD10: K21.9 - work on reducing caffeine. See surgery with persistent gerd. - CONSULT TO GENERAL SURGERY 3. Screening for colon cancer - ICD9: V76.51, ICD10: Z12.11 - CONSULT TO GENERAL SURGERY 4. Mixed hyperlipidemia - ICD9: 272.2, ICD10: E78.2 - Control undetermined, due for labs - Counseled on healthy diet and regular exercise - COMPLETE BLOOD COUNT AND DIFFERENTIAL - COMPREHENSIVE METABOLIC PANEL - LIPID PANEL, NONFASTING 5. Screening for prostate cancer - ICD9: V76.44, ICD10: Z12.5 - PSA/PROSTATE SPECIFIC ANTIGEN SCREENING 6. Medication monitoring encounter - ICD9: V58.83, ICD10: Z51.81 - VITAMIN B12 - MAGNESIUM 7. Need for vaccination - ICD9: V05.9, ICD10: Z23 - PNEUMOCOCCAL VACCINE, 20 VALENT (PREVNAR 20) 8. SOB (shortness of breath) - ICD9: 786.05, ICD10: R06.02 (more content not included)...[facility]04-14-2025 History of Present illness Narrative* Donnybrook, Luis J, MD - 05/21/2024 10:34 AM EDT Patient presents with: 6 Month Exam HPI: Patient presents today for office visit for routine 6 month follow up. I last saw the patient in 2019. PSYCH: Sees the counseling center. Sees for meds and counseling. Continues on Xanax prn, venlafaxine and trazodone. Not sleeping well. Can't fall asleep. Has tried several medications with no success. GERD: States he gets it daily. Does drink a large amount of coffee a day. Denies bloody or black stool. Somewhat of a difficult historian. Has had no exertional chest pain No new shortness of breath. Reports having shortness of breath with his smoking. Continues to smoke 1 PPD. Due for labs. MEDICATIONS: Current Outpatient Medications Medication Sig Cholecalciferol, Vitamin D3, 125 mcg (5,000 unit) cap Take 1 capsule by mouth once daily. pantoprazole DR (PROTONIX) 40 mg tablet Take 1 tablet by mouth once daily. doxepin capsule 50 mg Take 50 mg by mouth daily at bedtime. traZODone (DESYREL) 100 mg tablet Take 100 mg by mouth daily at bedtime. VENLAFAXINE ER 150 MG TABLET,EXTENDED RELEASE 24 HR Take 150 mg by mouth once daily. ALPRAZolam (XANAX) 0.5 mg tablet Take 0.5 mg by mouth three times daily. No current facility-administered medications for this visit. ALLERGIES: ALLERGIES Allergen Reactions Zyprexa [Olanzapine] Rash PAST MEDICAL HISTORY Diagnosis Date Chronic pain dismissed from pain management, due to inconsistant drug screens Fall Intracranial bleed (HCC) after fall Marijuana use positive drug screen by Dr. Martinez Organic mood disorder since fall, seeing psychiatry Trauma multiple fractures PAST SURGICAL HISTORY Procedure Laterality Date FOOT SURGERY HX Left 2016 removal of wart PAST SURGICAL HISTORY OF 2011 trach, peg, multi-trauma/fall, hospitalized [place]-100 days FAMILY HISTORY Problem Relation Age of Onset None Mother Diabetes Father Heart Father Social History Tobacco Use Smoking status: Every Day Current packs/day: 0.75 Average packs/day: 0.8 packs/day for 34.7 years (26.0 ttl pk-yrs) Types: Cigarettes Start date: 09/10/1989 Smokeless tobacco: Current Tobacco comments: CHEW TOBACCO 1 X EVERY 2 MONTHS Substance Use Topics Alcohol use: No Drug use: Yes Comment: [address] drugs last used no h/o rehab or detox Discussed tobacco cessation, including risks of continued use. Offered assistance to help quit if patient desires. Is using thc again. Psych is aware. Discussed risks of using. Reviewed current medications, allergies, past medical history, surgical history, family history andsocial history today. REVIEW OF SYSTEMS No issues urinating. All other reviewed and negative other than HPI. HEALTH MAINTENANCE: Reviewed health maintenance issues today and recommended the following in detail. Pneumococcal Vaccine: 50+(2 of 2 - PCV) due on 12/22/2017 VITALS: BP 104/64 Pulse 102 Ht 175.3 cm (5' 9) Wt 76.7 kg (169 lb) SpO2 95% BMI 24.96 kg/m Last 4 Encounter Wt Readings: Date: Wt: 11/22/2023 78.6 kg (173 lb 4.5 oz) 11/15/2023 78.5 kg (173 lb) 05/18/2021 56.2 kg (124 lb) 12/02/2020 58.5 kg (129 lb) PHYSICAL EXAMINATION: General appearance: Well appearing, alert, in no acute distress, well-hydrated, well nourished. Skin: Skin color, texture, turgor normal, no suspicious rashes or lesions Head: Normocephalic, no masses, lesions, tenderness or abnormalities Lungs: slight crackles in right post lung base. Heart: RRR without murmur, gallop, or rubs. No ectopy Abdomen: Normal abdominal exam, Abdomen soft, non-tender. Bowel sounds normal. No masses, organomegaly Extremities: Positive findings: ? Mild clubbing of finger. Musculoskeletal: No joint swelling, deformity, or tenderness ASSESSMENT/PLAN: 1. History of traumatic brain injury - ICD9: V15.52, ICD10: Z87.820 (primary diagnosis) - stable. See counseling center. 2. Gastroesophageal reflux disease without esophagitis - ICD9: 530.81, ICD10: K21.9 - work on reducing caffeine. See surgery with persistent gerd. - CONSULT TO GENERAL SURGERY 3. Screening for colon cancer - ICD9: V76.51, ICD10: Z12.11 - CONSULT TO GENERAL SURGERY 4. Mixed hyperlipidemia - ICD9: 272.2, ICD10: E78.2 - Control undetermined, due for labs - Counseled on healthy diet and regular exercise - COMPLETE BLOOD COUNT AND DIFFERENTIAL - COMPREHENSIVE METABOLIC PANEL - LIPID PANEL, NONFASTING 5. Screening for prostate cancer - ICD9: V76.44, ICD10: Z12.5 - PSA/PROSTATE SPECIFIC ANTIGEN SCREENING 6. Medication monitoring encounter - ICD9: V58.83, ICD10: Z51.81 - VITAMIN B12 - MAGNESIUM 7. Need for vaccination - ICD9: V05.9, ICD10: Z23 - PNEUMOCOCCAL VACCINE, 20 VALENT (PREVNAR 20) 8. SOB (shortness of breath) - ICD9: 786.05, ICD10: R06.02 - given clubbing. Check echo and pfts. He reports symptoms are chronic. - XR CHEST 2V FRONTAL/LAT - ECHO - PERFLUTREN LIPID MICROSPHERES 1.1 MG/ML INJECTION IN NS 10 ML - SODIUM CHLORIDE 0.9 % (FLUSH) INJECTION SYRINGE 9. Tobacco abuse - ICD9: 305.1, ICD10: Z72.0 - Cessation encouraged. - Physiologic and physical aspects of tobacco addiction as well as strategies for quitting were discussed. - Counseling was given focusing on the harmful effects of this addiction especially given the patient's medical condition(s) which will be worsened because of the chemicals in tobacco. - XR CHEST 2V FRONTAL/LAT - ECHO - PERFLUTREN LIPID MICROSPHERES 1.1 MG/ML INJECTION IN NS 10 ML - SODIUM CHLORIDE 0.9 % (FLUSH) INJECTION SYRINGE Luis Mcfadden MD documented [facility] Instructions* Patient Instructions* Naina Quiñonez APRN.CNP - 11/22/2023 11:37 AM EDT 1) Pantoprazole 40 mg daily 2) Follow up in 6 month documented in this encounterMer[facility]10-[facility] History of Present illness Narrative* Naina Quiñonez APRN.CNP - 11/22/2023 11:21 AM EDT This is a 53 year old male who presents today with: Patient presents with: Dermatitis: Follow up HISTORY OF PRESENT ILLNESS: Fadi Alexandre is a 53 year old male. Patient presents with: Dermatitis: Follow up Rash is resolved. Gone 2-3 days after he saw me. Some mild itching. No fever or chills. No headache. Has heart burn all the time PAST MEDICAL HISTORY: PAST MEDICAL HISTORY Diagnosis Date Chronic pain dismissed from pain management, due to inconsistant drug screens Fall Intracranial bleed (HCC) after fall Marijuana use positive drug screen by Dr. Martinez Organic mood disorder since fall, seeing psychiatry Trauma multiple fractures PAST SURGICAL HISTORY Procedure Laterality Date FOOT SURGERY HX Left 2016 removal of wart PAST SURGICAL HISTORY OF 2011 trach, peg, multi-trauma/fall, hospitalized [place]-100 days ALLERGIES Zyprexa [Olanzapine] MEDICATIONS Current Outpatient Medications Medication Sig doxepin capsule 50 mg Take 50 mg by mouth daily at bedtime. traZODone (DESYREL) 100 mg tablet Take 100 mg by mouth daily at bedtime. ketoconazole (NIZORAL) 2 % shampoo Apply to affected area two times a week for 14 days. VENLAFAXINE ER 150 MG TABLET,EXTENDED RELEASE 24 HR Take 150 mg by mouth once daily. ALPRAZolam (XANAX) 0.5 mg tablet Take 0.5 mg by mouth three times daily. No current facility-administered medications for this visit. FAMILY HISTORY Problem Relation Age of Onset None Mother Diabetes Father Heart Father Social History Tobacco Use Smoking status: Every Day Current packs/day: 0.75 Average packs/day: 0.8 packs/day for 34.2 years (25.6 ttl pk-yrs) Types: Cigarettes Start date: 09/10/1989 Smokeless tobacco: Current Tobacco comments: CHEW TOBACCO 1 X EVERY 2 MONTHS Substance Use Topics Alcohol use: No Drug use: Yes Comment: [address] drugs last used no h/o rehab or detox EXAM: BP 100/68 Pulse 73 Wt 78.6 kg (173 lb 4.5 oz) SpO2 95% BMI 25.59 kg/m PHYSICAL EXAM: Physical Exam Vitals reviewed. Constitutional: Appearance: Normal appearance. HENT: Head: Normocephalic. Cardiovascular: Rate and Rhythm: Normal rate and regular rhythm. Pulses: Normal pulses. Heart sounds: Normal heart sounds. Pulmonary: Effort: Pulmonary effort is normal. No respiratory distress. Breath sounds: No wheezing, rhonchi or rales. Comments: James. Bases diminished Abdominal: General: Bowel sounds are normal. Palpations: Abdomen is soft. Musculoskeletal: General: Normal range of motion. Neurological: Mental Status: He is alert. < 1 ppd for 35 year LABS: declined labs and declined colon screening ASSESSMENT/PLAN: 1. Gastroesophageal reflux disease without esophagitis - ICD9: 530.81, ICD10: K21.9 (primary diagnosis) - Declines work up at this time - PANTOPRAZOLE 40 MG TABLET,DELAYED RELEASE 2. 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 Encounter for screening examination for other mental health and behavioral disorders - ICD9: V79.8, ICD10: Z13.39 At risk - ANXIETY SCREENING 4. Dermatitis - ICD9: 692.9, ICD10: L30.9 - discussed skin care of rash - follow up if symptoms persist or worsen. - Resolved 5. Tobacco use - ICD9: 305.1, ICD10: Z72.0 - Cessation encouraged. - Physiologic and physical aspects of tobacco addiction as well as strategies for quitting were discussed. - Counseling was given focusing on the harmful effects of this addiction especially given the patient's medical condition(s) which will be worsened because of the chemicals in tobacco. - Declined cessation or LDCT Discussed treatment plan and patient voices understanding. Patient's questions answered appropriately. Medications and potential side effects were discussed and patient voices understanding. Return to the office as scheduled or as needed for worsening/no improvement. Naina Quiñonez APRN.CNP documented in this [facility] Instructions* Patient Instructions* Naina Quiñonez APRN.CNP - 11/15/2023 12:33 PM EDT 1) Triamcinolone injection 40 mg IM 2) Ketoconazole shampoo to wash daily for 14 days 3) follow up in 1 week documented in this [facility]10-[facility] History of Present illness Narrative* Naina Quiñonez APRN.CNP - 11/15/2023 12:20 PM EDT This is a 53 year old male who presents today with: Patient presents with: Rash: Red, raised , itchy bumps all over body that started a a few days ago HISTORY OF PRESENT ILLNESS: Fadi Alexandre is a 53 year old male. Patient presents with: Rash: Red, raised , itchy bumps all over body that started a a few days ago Rash 3-4 days ago- spreading. Arms, back, buttocks, and legs Itch. Painful when itched. No change in medications or foods. No cough or wheezing As a child, allergic to PCN Feels like heart is racing No change in laundry soap No new pets Eating and drinking ok Bowels and bladder ok PAST MEDICAL HISTORY: PAST MEDICAL HISTORY Diagnosis Date Chronic pain dismissed from pain management, due to inconsistant drug screens Fall Intracranial bleed (HCC) after fall Marijuana use positive drug screen by Dr. Martinez Organic mood disorder since fall, seeing psychiatry Trauma multiple fractures PAST SURGICAL HISTORY Procedure Laterality Date FOOT SURGERY HX Left 2016 removal of wart PAST SURGICAL HISTORY OF 2011 trach, peg, multi-trauma/fall, hospitalized [place]-100 days ALLERGIES Zyprexa [Olanzapine] MEDICATIONS Current Outpatient Medications Medication Sig doxepin capsule 50 mg Take 50 mg by mouth daily at bedtime. traZODone (DESYREL) 100 mg tablet Take 100 mg by mouth daily at bedtime. VENLAFAXINE ER 150 MG TABLET,EXTENDED RELEASE 24 HR Take 150 mg by mouth once daily. ALPRAZolam (XANAX) 0.5 mg tablet Take 0.5 mg by mouth three times daily. gabapentin (NEURONTIN) 400 mg capsule Take 400 mg by mouth twice daily. (Patient not taking: Reported on 11/15/2023) haloperidol decanoate (HALDOL) 100 mg/mL injection Inject 150 mg intramuscularly once every month. (Patient not taking: Reported on 11/15/2023) No current facility-administered medications for this visit. FAMILY HISTORY Problem Relation Age of Onset None Mother Diabetes Father Heart Father Social History Tobacco Use Smoking status: Every Day Current packs/day: 0.75 Average packs/day: 0.8 packs/day for 34.2 years (25.6 ttl pk-yrs) Types: Cigarettes Start date: 09/10/1989 Smokeless tobacco: Current Tobacco comments: CHEW TOBACCO 1 X EVERY 2 MONTHS Substance Use Topics Alcohol use: No Drug use: Yes Comment: [address] drugs last used no h/o rehab or detox EXAM: BP 108/64 Pulse 102 Resp 20 Wt 78.5 kg (173 lb) SpO2 94% BMI 25.55 kg/m PHYSICAL EXAM: Physical Exam Vitals reviewed. Constitutional: Appearance: Normal appearance. HENT: Head: Normocephalic. Cardiovascular: Rate and Rhythm: Normal rate and regular rhythm. Pulses: Normal pulses. Heart sounds: Normal heart sounds. Pulmonary: Effort: Pulmonary effort is normal. No respiratory distress. Breath sounds: Normal breath sounds. No wheezing, rhonchi or rales. Musculoskeletal: General: Normal range of motion. Skin: General: Skin is warm and dry. Comments: Large areas that are pale red, swollen, itchy all over body Neurological: Mental Status: He is alert and oriented to person, place, and time. Psychiatric: Comments: Flat affect, appropriate response LABS: ASSESSMENT/PLAN: 1. Allergic dermatitis - ICD9: 692.9, ICD10: L23.9 (primary diagnosis) HIVES - triamcinolone injection - ketoconazole wash x 14 days - discussed skin care of rash - follow up if symptoms persist or worsen. 2. Welts - ICD9: 709.8, ICD10: L50.9 - Likely viral or allergic etiology discussed with patient - Follow up if symptoms persist or worsen. Discussed treatment plan and patient voices understanding. Patient's questions answered appropriately. Medications and potential side effects were discussed and patient voices understanding. Return to the office as scheduled or as needed for worsening/no improvement. Naina Quiñonez APRN.CNP documented in this encounter[facility]04-11-2022 Instructions* Patient Instructions* Narcisa Pacheco APRN.CNP - 05/18/2021 1:25 PM EDT 1. Get chest xray. 2. Do the stool kit for hidden blood. documented in this encounterMer[facility]04-11-2022 History of Present illness Narrative* Narcisa Pacheco APRN.CNP - 05/18/2021 1:09 PM EDT This is a 51 year old male who presents today with: Patient presents with: Recheck: 6 month follow up HISTORY OF PRESENT ILLNESS: Fadi Alexandre is a 51 year old male. Patient presents with: Recheck: 6 month follow up Patient presents today for possible failure to thrive. Presents with mother. States has a rattle in his chest, more prominent in the evening. He isn't eating well. Weight down 5# in the last 6 months. Mother reports that he is in bed about 23 hours a driscoll. Patient reports that he can't sleep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 (unrecognized section and content) Medication Order 11/24/2020 11/25/2020 11/26/2020 divalproex (DEPAKOTE) DR tablet 1,000 mg 1,000 mg, Oral, NIGHTLY, First dose on Tue11/21/20 at 0045, Do not crush or break. 2052 (Given - Provider: Vanesa Prado, TRACI) 2007 (Given - Provider: Venessa Newton RN) 2099 (Due) divalproex (DEPAKOTE) DR tablet 500 mg 500 mg, Oral, DAILY, First dose on Tue11/21/20 at 0900, Do not crush or break. 0814 (Given - Provider: Candice Keenan, TRACI) 0800 (Given - Provider: Mirtha Mccord, TRACI) 0742 (Given - Provider: Mirtha Mccord, TRACI) enoxaparin (LOVENOX) injection 40 mg 40 mg, SubCUTAneous, DAILY, First dose on Tue11/21/20 at 0900 0815 (Given - Provider: Candice Keenan RN) 08 (Given - Provider: Mirtha Mccord RN) 0742 (Given - Provider: Mirtha Mccord RN) gabapentin (NEURONTIN) capsule 400 mg 400 mg, Oral, 2 TIMES DAILY, First dose on Tue11/21/20 at 0045 0814 (Given - Provider: Candice Keenan RN)2052 (Given - Provider: Vanesa Prado RN) 0800 (Given - Provider: Mirtha Mccord RN)2007 (Given - Provider: Venessa Newton, TRACI) 0742 (Given - Provider: Mirtha Mccord RN)2100 (Due) sodium chloride flush 0.9 % injection 5-40 mL 5-40 mL, IntraVENous, EVERY 12 HOURS SCHEDULED (2 times per day), First dose on Tue11/21/20 at 0900, For Line Patency: Peripheral IV = 5 mL; Midline or Central Line = 10 mL/lumen. If following IV push medication, administer flush at same rate as the IV push. Flush volume is determined by type of infusion therapy being given. For non-viscous solutions use: Peripheral IV = 5 mL Midline or Central Line = 10 mL/lumen For viscous solutions (i.e. blood components, parenteral nutrition, contrast media, or after obtaining blood sample) use: Peripheral IV = 10 mL Midline or Central Line = 20 mL/lumen 0814 (Given - Provider: Candice Keenan RN)2053 (Given - Provider: Vanesa Prado RN) 0801 (Given - Provider: Mirtha Mccord, TRACI)2007 (Given - Provider: Venessa Newton, TRACI) 0743 (Given - Provider: Mirtha Mccord, TRACI)2100 (Due) Continuous Medication Order 11/24/2020 11/25/2020 11/26/2020 dextrose 5 % and 0.9 % sodium chloride infusion (CANCELED) IntraVENous, at 125 mL/hr, CONTINUOUS, Starting on Tue11/21/20 at 0300 0239 (New Bag - Provider: Dodie Mchugh RN)1109 (New Bag - Provider: Candice Keenan RN)1715 (Stopped - Provider: Candice Keenan RN) PRN Medication Order 11/24/2020 11/25/2020 11/26/2020 0.9 % sodium chloride infusion 25 mL, IntraVENous, at 100 mL/hr, PRN, If patient receiving piggyback infusions without ordered maintenance IV fluids or with frequent/long duration piggyback infusions, Starting on Tue11/21/20 at 0022, Administer at the same rate as the piggyback being infused. acetaminophen (TYLENOL) suppository 650 mg(Linked Group 1) 650 mg, Rectal, EVERY 6 HOURS PRN, Pain Mild (1-3), Fever, For temp greater than 100.4 F (38 C), Starting on Tue11/21/20 at 0022, Administer if oral route cannot be used. 1420 (See Alternative - Provider: Mirtha Mccord RN) acetaminophen (TYLENOL) tablet 650 mg(Linked Group 1) 650 mg, Oral, EVERY 6 HOURS PRN, Pain Mild (1-3), Fever, For temp greater than 100.4 F (38 C), Starting on Tue11/21/20 at 0022, Maximum dose of acetaminophen is 4000 mg from all sources in 24 hours. 1420 (Given - Provider: Mirtha Mccord RN) LORazepam (ATIVAN) injection 0.5 mg 0.5 mg, IntraVENous, EVERY 6 HOURS PRN, Anxiety, Agitation, Starting on Tue11/21/20 at 0241 0814 (Given - Provider: Candice Keenan RN)1713 (Given - Provider: Candice Keenan RN) 0806 (Given - Provider: Mirtha Mccord RN)1451 (Given - Provider: Mirtha Mccord RN) 0748 (Given - Provider: Mirtha Mccord RN) ondansetron (ZOFRAN) injection 4 mg(Linked Group 2) 4 mg, IntraVENous, EVERY 6 HOURS PRN, Nausea, Vomiting, Starting on Tue11/21/20 at 0022, Administer if oral route cannot be used. ondansetron (ZOFRAN-ODT) disintegrating tablet 4 mg(Linked Group 2) 4 mg, Oral, EVERY 8 HOURS PRN, Nausea, Vomiting, Starting on Tue11/21/20 at 0022 polyethylene glycol (GLYCOLAX) packet 17 g 17 g, Oral, DAILY PRN, Constipation, Starting on Tue11/21/20 at 0022, First line therapy for constipation sodium chloride flush 0.9 % injection 5-40 mL 5-40 mL, IntraVENous, PRN, Line Care, After every IV line use, Starting on Tue11/21/20 at 0022, For Line Patency: Peripheral IV = 5 mL; Midline or Central Line = 10 mL/lumen. If following IV push medication, administer flush at same rate as the IV push. Flush volume is determined by type of infusion therapy being given. For non-viscous solutions use: Peripheral IV = 5 mL Midline or Central Line = 10 mL/lumen For viscous solutions (i.e. blood components, parenteral nutrition, contrast media, or after obtaining blood sample) use: Peripheral IV = 10 mL Midline or Central Line = 20 mL/lumen Linked Groups Order Group 1: acetaminophen (TYLENOL) tablet 650 mgJump to med 650 mg, Oral, EVERY 6 HOURS PRN, Pain Mild (1-3), Fever, For temp greater than 100.4 F (38 C), Starting on Tue11/21/20 at 0022
Maximum dose of acetaminophen is 4000 mg from all sources in 24 hours.
Or acetaminophen (TYLENOL) suppository 650 mgJump to med 650 mg, Rectal, EVERY 6 HOURS PRN, Pain Mild (1-3), Fever, For temp greater than 100.4 F (38 C), Starting on Tue11/21/20 at 0022
Administer if oral route cannot be used.
Group 2: ondansetron (ZOFRAN-ODT) disintegrating tablet 4 mgJump to med 4 mg, Oral, EVERY 8 HOURS PRN, Nausea, Vomiting, Starting on Tue11/21/20 at 0022 Or ondansetron (ZOFRAN) injection 4 mgJump to med 4 mg, IntraVENous, EVERY 6 HOURS PRN, Nausea, Vomiting, Starting on Tue11/21/20 at 0022
Administer if oral route cannot be used.
PRN Medication Order 12/03/2020 12/04/2020 12/05/2020 LORazepam (ATIVAN) injection 1 mg (COMPLETED) 1 mg, IntraMUSCular, ONCE PRN, Agitation, Starting on Tue12/05/20 at 2037, For 1 dose 2118 (Given - Provid er: Marcia Sinha RN) Care Teams (unrecognized sec tion and content) Casino Porter Relationship Specialty Start Date End Date Luis Mcfadden MD [address] [place] [address] PCP - General Family Practice 09/08/19 Luis Mcfadden MD [address] [place] [address] Family Practice 09/08/19 Casino Porter Relationship Specialty Start Date End Date Luis Mcfadden MD [address] [place] [id number] PCP - General 05/14/15 Casino Porter Relationship Specialty Start Date End Date Luis Mcfadden MD [address] [place] [address] PCP - General Family Medicine 09/08/19 Luis Mcfadden MD [address] [place] [address] Family Medicine 09/08/19 Casino Porter Relationship Specialty Start Date End Date Luis Mcfadden MD [address] [place] [address] PCP - General Family Medicine 09/08/19 Luis Mcfadden MD [address] [place] [address] Family Medicine 09/08/19 Casino Porter Relationship Specialty Start Date End Date Luis Mcfadden MD [address] [place] [address] PCP - General Family Medicine 09/08/19 Luis Mcfadden MD [address] [facility] [place] [address] Family Medicine 09/08/19 Casino Porter Relationship Specialty Start Date End Date Luis Mcfadden MD [address] [place] [address] PCP - General Family Medicine 09/08/19 Luis Mcfadden MD [address] [facility] [place] [address] Family Medicine 09/08/19 Narcisa Pacheco SCREEDMAN/LABORER.CLAMP JIG ASSEMBLER [address] [place] [address] Sustainability Coordinator Family Medicine 01/16/24 Naina Quiñonez SCREEDMAN/LABORER.CLAMP JIG ASSEMBLER [address] [facility] [address] Sustainability Coordinator Family [facility] 01/16/24 Casino Porter Relationship Specialty Start Date End Date Luis Mcfadden MD [address] [facility] [place] [address] PCP - General Family Medicine 09/08/19 Luis Mcfadden MD [address] [facility] [address] Family Medicine 09/08/19 Narcisa Pacheco SCREEDMAN/LABORER.CLAMP JIG ASSEMBLER [address] [facility] [place] [address] Sustainability Coordinator Family [facility] 01/16/24 Naina Quiñonez SCREEDMAN/LABORER.CLAMP JIG ASSEMBLER [address] [facility] [address] Sustainability Coordinator Family Medicine 01/16/24 Casino Porter Relationship Specialty Start Date End Date Luis Mcfadden MD [address] [facility] [place] [place] [address] PCP - General Family Medicine 09/08/19 Luis Mcfadden MD [address] [facility] [place] [place] [address] Family Medicine 09/08/19 Narcisa Pacheco SCREEDMAN/LABORER.CLAMP JIG ASSEMBLER [address] [place] [address] Sustainability Coordinator [facility] Medicine 01/16/24 Naina Quiñonez APRN.CLAMP JIG ASSEMBLER [address] [facility] [place] [place] [address] Sustainability Coordinator [facility] Medicine 01/16/24 Casino Porter Relationship Specialty Start Date End Date Luis Mcfadden MD [address] [facility] [place] [place] [address] PCP - General Family Medicine 09/08/19 Luis Mcfadden MD [address] [facility] [place] [place] [address] Family Medicine 09/08/19 Narcisa Pacheco SCREEDMAN/LABORER.CLAMP JIG ASSEMBLER [address] [place] [address] Sustainability Coordinator Family Medicine 01/16/24 Naina Quiñonez APRN.CLAMP JIG ASSEMBLER [address] [facility] [place] [address] Sustainability Coordinator Family Medicine 01/16/24 Casino Porter Relationship Specialty Start Date End Date Luis Mcfadden MD [address] [place] [address] PCP - General Family Medicine 09/08/19 Luis Mcfadden MD [address] [place] [address] Family Medicine 09/08/19 Narcisa Pacheco APRN.CLAMP JIG ASSEMBLER [address] [place] [address] Sustainability Coordinator Family Medicine 01/16/24 Naina Quiñonez APRN.CLAMP JIG ASSEMBLER [address] [place] [address] Sustainability Coordinator [facility] 01/16/24 Casino Porter Relationship Specialty Start Date End Date Luis Mcfadden MD [address] [facility] [place] [address] PCP - General Family Medicine 09/08/19 Luis Mcfadden MD [address] [place] [address] Family Medicine 09/08/19 Narcisa Pacheco APRN.CLAMP JIG ASSEMBLER [address] [place] [address] Sustainability Coordinator Family Medicine 01/16/24 Naina Quiñonez SCREEDMAN/LABORER.CLAMP JIG ASSEMBLER [address] [place] [address] Sustainability Coordinator Family Medicine 01/16/24 Casino Porter Relationship Specialty Start Date End Date Luis Mcfadden MD [address] [facility] [place] [address] PCP - General Family Medicine 09/08/19 Luis Mcfadden MD [address] [place] [address] Family Medicine 09/08/19 Narcisa Pacheco APRN.CLAMP JIG ASSEMBLER [address] [place] [address] Sustainability Coordinator Family Medicine 01/16/24 Naina Quiñonez SCREEDMAN/LABORER.CLAMP JIG ASSEMBLER [address] [place] [address] Sustainability Coordinator [facility] 01/16/24 Casino Porter Relationship Specialty Start Date End Date Luis Mcfadden MD [address] [place] [address] PCP - General Family Medicine 09/08/19 Luis Mcfadden MD [address] [place] [address] Family Medicine 09/08/19 Narcisa Pacheco SCREEDMAN/LABORER.CLAMP JIG ASSEMBLER [address] [place] [address] Sustainability Coordinator Family Medicine 01/16/24 Naina Quiñonez SCREEDMAN/LABORER.CLAMP JIG ASSEMBLER [address] [place] [address] Sustainability Coordinator Family Medicine 01/16/24 Casino Porter Relationship Specialty Start Date End Date Luis Mcfadden MD [address] [place] [address] PCP - General Family Medicine 09/08/19 Luis Mcfadden MD [address] [facility] [place] [place] [address] Family Medicine 09/08/19 Narcisa Pacheco APRN.CLAMP JIG ASSEMBLER [address] [place] [address] Sustainability Coordinator Family [facility] 01/16/24 Naina Quiñonez SCREEDMAN/LABORER.CLAMP JIG ASSEMBLER [address] [facility] [place] [place] [address] [facility] 01/16/24 Casino Porter Relationship Specialty Start Date End Date Luis Mcfadden MD [address] [facility] [place] [address] PCP - General Family Medicine 09/08/19 Luis Mcfadden MD [address] [facility] [place] [address] Family Medicine 09/08/19 Narcisa Pacheco, SCREEDMAN/LABORER.CLAMP JIG ASSEMBLER [address] [facility] [place] [address] [facility] 01/16/24 Naina Quiñonez, SCREEDMAN/LABORER.CLAMP JIG ASSEMBLER [address] [facility] [place] [place] [address] [facility] Family [facility] 01/16/24 Casino Porter Relationship Specialty Start Date End Date Luis Mcfadden MD [address] [facility] [place] [address] PCP - General Family Medicine 09/08/19 Luis Mcfadden MD [address] [facility] [place] [address] Family Medicine 09/08/19 Narcisa Pacheco APRN.CLAMP JIG ASSEMBLER [address] [place] [address] Sustainability Coordinator [facility] 01/16/24 Naina Quiñonez APRN.CLAMP JIG ASSEMBLER [address] [place] [address] Sustainability Coordinator Family [facility] 01/16/24 Casino Porter Relationship Specialty Start Date End Date Luis Mcfadden MD [address] [place] [address] PCP - General Family Medicine 09/08/19 Luis Mcfadden MD [address] [place] [address] Family Medicine 09/08/19 Narcisa Pacheco APRN.CLAMP JIG ASSEMBLER [address] [place] [address] [facility] 01/16/24 Naina Quiñonez APRN.CLAMP JIG ASSEMBLER [address] [place] [address] [facility] 01/16/24 Casino Porter Relationship Specialty Start Date End Date Luis Mcfadden MD [address] [place] [address] PCP - General Family Medicine 09/08/19 Luis Mfcadden MD [address] [place] [address] Family Medicine 09/08/19 Narcisa Pacheco APRN.CLAMP JIG ASSEMBLER [address] [place] [address] Sustainability Coordinator Family Medicine 01/16/24 Naina Quiñonez APRN.CLAMP JIG ASSEMBLER [address] [place] [address] Sustainability Coordinator Family [facility] 01/16/24 Casino Porter Relationship Specialty Start Date End Date Luis Mcfadden MD [address] [place] [address] PCP - General Family Medicine 09/08/19 Luis Mcfadden MD [address] [facility] [place] [place] [address] Family Medicine 09/08/19 Narcisa Pacheco APRN.CLAMP JIG ASSEMBLER [address] [place] [address] [facility] 01/16/24 Naina Quiñonez APRN.CLAMP JIG ASSEMBLER [address] [place] [address] [facility] 01/16/24 Casino Porter Relationship Specialty Start Date End Date Luis Mcfadden MD [address] [place] [address] PCP - General Family Medicine 09/08/19 Luis Mcfadden MD [address] [facility] [place] [place] [address] Family Medicine 09/08/19 Narcisa Pacheco APRN.CLAMP JIG ASSEMBLER [address] [place] [address] Sustainability Coordinator Family Medicine 01/16/24 Naina Quiñonez APRN.CLAMP JIG ASSEMBLER [address] [facility], [place] [address] [facility] 01/16/24 Casino Porter Relationship Specialty Start Date End Date Luis Mcfadden MD [address] [facility], [place] [address] PCP - General Family Medicine 09/08/19 Luis Mcfadden MD [address] [facility], [place] [address] [facility] 09/08/19 Narcisa Pacheco APRN.CLAMP JIG ASSEMBLER [address] [facility], [place] [address] [facility] 01/16/24 Naina Quiñonez APRN.CLAMP JIG ASSEMBLER [address] [facility], [place] [address] [facility] 01/16/24 FOR RECORDS PERTAINING TO PATIENTS WHO ARE OR HAVE BEEN ENROLLED IN A CHEMICAL DEPENDENCY/SUBSTANCEABUSE PROGRAM, SOME INFORMATION MAY BE OMITTED. This clinical summary was aggregated from multiple sources. Caution should be exercised in using it in the provision of clinical care. This summary normalizes information from multiple sources, and as a consequence, information in this document may materially change the coding, format and clinical context of patient data. In addition, data may be omitted in some cases. CLINICAL DECISIONS SHOULD BE BASED ON THE PRIMARY CLINICAL RECORDS. [employer] [facility]. provides no warranty or guarantee of the accuracy or completeness of information in this document.
[2025-01-17 18:35] LABS: AST(SGOT) 18 U/L (<=37); Alanine Aminotransfer ALT/SGPT 14 U/L (<=46); Albumin, Serum 4.3 g/dL (3.5-5.0); Alkaline Phosphatase 53 U/L (40-129); Anion Gap 13 (5-15); BUN 4 mg/dL (4-19); BUN/Creat Ratio 5.2 RATIO (10-20); Calcium,Total 9.9 mg/dL (7.6-11.0); Carbon Dioxide 26.0 mmol/L (21.0-32.0); Chloride 102 mmol/L (98-108); Estimated Creatinine Clearance 122.04 ml/min (50-250); Globulin 2.9 g/dL (2.2-4.2); Glucose 127 mg/dL (70-99); Potassium 3.4 mmol/L (3.3-5.1)
[2025-01-17 18:50] LABS: Color, Urine Straw (Yellow); Glucose, Dipstick Normal (Normal); Ketone-Dipstick Negative (Negative); Leukocyte Esterase-Dipstick Negative /ul (Negative); Nitrite-Dipstick Negative (Negative); Occult Blood-Urine 10 /ul (Negative); Protein-Dipstick Negative (Negative); Specific Gravity, Urine 1.005 (1.002-1.030); Urine Bilirubin Dipstick Negative (Negative)
[2025-01-17 19:09] LABS: Red Blood Cells-Urine 0-5 SEEN /hpf (0-5); Squamous Epithelial Cells - UA 0-5 SEEN /hpf (0-5)
[2025-01-17 20:00] VITALS: BP 137/88; PULSE 88; RESP 16; O2SAT 98
[2025-01-17 20:43] VITALS: BP 141/87; PULSE 88; RESP 16; TEMP 36.6; O2SAT 100
--- NOTE | 2025-01-18 00:56 | EX.ED.GUMALE ---
HPI History of Present Illness Chief Complaint: Male Pain/Injury Narrative Narrative: Patient is a 54-year-old male presenting to the emergency department for testicular pain for the past month. Patient states that he has had consistent testicular pain with no injury. He denies any fever, chills, nausea, vomiting, abdominal pain. States he sometimes thinks he has scrotal swelling as well. Denies any lesions. Denies any penile discharge. Denies any dysuria or hematuria. Is not sexually active. Denies this ever happening before. [facility] Medications ?Medication ?Instructions ?Recorded ?Last Taken ?Type acetaminophen 500 mg capsule 500 mg PO Q6H PRN 01/15/25 Unknown History alprazolam 0.5 mg tablet 0.5 mg PO QDAY 01/15/25 Unknown History alprazolam 1 mg tablet 1 mg PO BID 01/15/25 Unknown History atorvastatin 20 mg tablet 20 mg PO QDAY 01/15/25 Unknown History cholecalciferol (vitamin D3) 125 125 mcg PO DAILY 01/15/25 Unknown History mcg (5,000 unit) capsule doxepin 50 mg capsule 50 mg PO QHS 01/15/25 Unknown History famotidine 20 mg tablet 20 mg PO QHS 01/15/25 Unknown History olanzapine [Zyprexa] PO 01/15/25 Unknown History pantoprazole 40 mg tablet,delayed 40 mg PO QDAY 01/15/25 Unknown History release trazodone 100 mg tablet 200 mg PO QHS 01/15/25 Unknown History venlafaxine 150 mg tablet,extended 150 mg PO QDAY 01/15/25 Unknown History release 24 hr Allergy/AdvReac Type Severity Reaction Status Date / Time olanzapine (From Zyprexa) Allergy Rash Verified 01/17/25 16:59 Social History Smoking Status: Current every day smoker tobacco type: cigarettes ROS ROS ED ROS Narrative see HPI EXAM Physical Exam Narrative Exam Narrative: Vital signs: Reviewed General: Alert and orientedx3. No acute distress. Nontoxic, well appearing. HEENT: Head is normocephalic and atraumatic, sinuses nontender, pupils equal round and reactive. Nares are patent. Oropharynx and throat exams normal. Neck: Supple without lymphadenopathy nontender Cardiovascular: Regular rate and rhythm, no murmurs. No rubs or gallops. Normal S1 and S2 Respiratory: Clear to auscultation bilaterally. No wheezes, rales, rhonchi Abdominal: Soft and nontender. Normal bowel sounds. No guarding or rebound. Nonsurgical abdomen : Completed with padder cushion RN at bedside. Normal male external genitalia. No penile lesions. No penile swelling, erythema or discharge. No scrotal swelling. No masses felt. No erythema of the scrotum. Extremities: No tenderness. No bruising. Normal range of motion. Normal sensation. Skin: No rash or redness. The rest of the physical exam is unremarkable Const Vital Signs: 01/17/25 16:57 01/17/25 20:00 01/17/25 20:43 Temperature 98.8 F 97.9 F Temperature Source Oral Pulse Rate 89 88 88 Respiratory Rate 18 16 16 Blood Pressure 137/83 H 137/88 H 141/87 H Blood Pressure Mean 101 104 105 Pulse Ox 96 98 100 Oxygen Delivery Method Room Air Room Air MDM MDM MDM Narrative Medical decision making narrative: Patient is a 54-year-old male presenting to the emergency department for scrotal pain for the past month. Patient was seen and examined. Vitals are stable. Patient resting in bed comfortably in no acute distress. Differential includes but is not limited to: Epididymitis, orchitis, scrotal mass, hydrocele, cellulitis CBC with no leukocytosis and a normal hemoglobin. BMP with no significant abnormalities. Urinalysis noted to urinary tract infection. Patient denies being sexually active, states last was around 5 years ago. Testicular ultrasound is unremarkable with no evidence of torsion or infection. No masses seen. Patient was updated on the lab and imaging findings. Unknown what is causing patient's symptoms at this time but there is no emergent findings on physical exam or workup. Given urology follow-up if he continues to have pain. Patient discharged from the Emergency Department. I do not feel that the patient's evaluation reveals any acute reason for admission at this time. I instructed them to either follow-up with their primary care physician or promptly return to the Emergency Department for reevaluation should symptoms worsen or new symptoms develop. I explained what symptoms would indicate the need to return to the emergency department. Shared decision making was used. The patient voiced understanding of the treatment plan and is agreeable with it. Clinical impression Testicular pain History & Record Review Discussion w/independent historian: Patient and Family Lab Data Attestation: I reviewed the patient's lab results. Labs: Laboratory Results - last 24 hr 01/17/25 01/17/25 17:55 18:05 WBC 8.5 RBC 5.38 Hgb 16.5 Hct 47.9 MCV 89.0 MCH 30.7 MCHC 34.4 RDW Std Deviation 43.4 RDW Coeff of [place] 13.3 Plt Count 247 MPV 10.3 Immature Gran % (Auto) 0.200 Neut % (Auto) 68.2 Lymph % (Auto) 21.7 [place] % (Auto) 6.9 Eos % (Auto) 2.1 Baso % (Auto) 0.9 Absolute Neuts (auto) 5.8 Absolute Lymphs (auto) 1.84 Nucleated RBC % 0 Sodium 141 Potassium 3.4 Chloride 102 Carbon Dioxide 26.0 Anion Gap 13 BUN 4 Creatinine 0.70 Estim Creat Clear Calc 122.04 Est GFR (MDRD) Non-Af 110 BUN/Creatinine Ratio 5.2 L Glucose 127 H Calcium 9.9 Total Bilirubin 0.50 AST 18 ALT 14 Alkaline Phosphatase 53 Total Protein 7.1 Albumin 4.3 Globulin 2.9 Albumin/Globulin Ratio 1.5 Urine Color Straw Urine Clarity Clear Urine pH 7.0 Ur Specific [place] 1.005 Urine Protein Negative Urine Glucose (UA) Normal Urine Ketones Negative Urine Occult Blood 10 H Urine Nitrite Negative Urine Bilirubin Negative Urine Urobilinogen Normal Ur Leukocyte Esterase Negative Urine RBC 0-5 SEEN Urine WBC 0-5 SEEN Ur Squamous Epith Cells 0-5 SEEN Urine Bacteria 0 SEEN Urine Mucus 0 SEEN Radiography Diagnostic Testing: Clinical Impression(s) from Imaging Studies Testicular Ultrasound 01/17/25 17:41 IMPRESSION: Unremarkable scrotal ultrasound. No evidence for torsion or infection. Reading Location: [id number] Discharge Plan Triage Chief Complaint: Male Pain/Injury ED Provider: Shayla Pham Dx/Rx/DC Orders Clinical Impression: Pain in both testicles Instructions: ED Testicular Pain, Unclear Cause Prescriptions: No Action alprazolam 1 mg tablet 1 mg PO BID doxepin 50 mg capsule 50 mg PO QHS atorvastatin 20 mg tablet 20 mg PO QDAY alprazolam 0.5 mg tablet 0.5 mg PO QDAY famotidine 20 mg tablet 20 mg PO QHS trazodone 100 mg tablet 200 mg PO QHS pantoprazole 40 mg tablet,delayed release (DR/EC) 40 mg PO QDAY acetaminophen 500 mg capsule 500 mg PO Q6H PRN cholecalciferol (vitamin D3) 125 mcg (5,000 unit) capsule 125 mcg PO DAILY venlafaxine 150 mg tablet extended release 24hr 150 mg PO QDAY olanzapine [Zyprexa] PO Primary Care Provider: Hay Garcia Referrals: Herbert Valdez MD [Med Staff - Active Staff, Urology] - As soon as possible Hay Garcia MD [Primary Care Provider, Medical] Activity Restrictions/Additional Instructions: If you continue to have symptoms you can follow-up with the urologist below. Your evaluation in the Emergency Department did not reveal any acute reason for admission. However, I want to emphasize that you may be early in the course of a disease process or illness even if it is not present. For this reason you should follow-up within 24 hours for reevaluation with either your primary care physician or if necessary back here in the Emergency Department. You should return to the Emergency Department immediately if your symptoms worsen or new symptoms develop. Print Language: Syrian Disposition Disposition: Home, Self Care Discharge Date/Time: 01/17/25 20:43
== END 2025-01-17 20:43 | disposition home or self-care (01) ==
PROVIDERS: Emergency Provider Student in an Organized Health Care Education/Training Program; PCP Family Medicine; Visit Provider Student in an Organized Health Care Education/Training Program
DX: N50.811 Right testicular pain (principal); N50.812 Left testicular pain; F17.210 Nicotine dependence, cigarettes, uncomplicated
CPT/HCPCS: 76870; 80053; 81001; 85025; 93976; 99283; A4216